=== PATIENT | male | born 1960 | race Caucasian/White ===

== ENCOUNTER 2019-02-14 12:14 | Emergency (ER) | payer MEDICAID, OTHER ==
[2019-02-14 12:44] VITALS: O2SAT 96
--- NOTE | 2019-02-14 13:22 | ERPHSYRPT ---
- History of Present Illness Time Seen by Provider: 02/14/19 12:45 Source: patient Exam Limitations: clinical condition Patient Subjective Stated Complaint: "My back has been hurting for past 2 months and have been having problems urinating also for past couple months. I did not hurt my back that I know of". Triage Nursing Assessment: Aaox3, walked in bent over in pain, color good, afebrile, no resp distress, states h/o copd, states sob with exertion and cough is normal for patient, Has no other complaints at this time. Physician History: PATIENT WITH A HISTORY OF CHRONIC LOW BACK FOR 20 YEARS PROGRESSIVELY WORSE FOR PAST 2 MONTHS. ADMITS TO HAVING A HISTORY OF LUMBAR HERNIATED DISC. HAS RADIATION OF PAIN DOWN THE BACK OF BOTH LEGS. HAS ASSOCIATED FLANK PAIN. DENIES FEVER OR URINARY SYMPTOMS. DENIES RECENT HISTORY OF TRAUMA, INJURY OR HEAVY LIFTING. Timing/Duration: week(s) Method of Injury: other (NONE) Quality: throbbing Back Pain Location: lumbar spine Back Pain Radiation: upper legs Severity of Pain-Max: severe Severity of Pain-Current: severe Modifying Factors: Improves With: movement Associated Symptoms: muscle spasms Previous symptoms: same symptoms as today Allergies/Adverse Reactions: No Known Drug Allergies Allergy (Unverified 12/01/12 16:11) Home Medications: Ibuprofen 200 mg [Motrin 200 mg] 600 02/14/19 [History] Hx Tetanus, Diphtheria Vaccination/Date Given: No Hx Influenza Vaccination/Date Given: No Hx Pneumococcal Vaccination/Date Given: No Immunizations Up to Date: No - Review of Systems Constitutional: No Fever, No Chills Eyes: No Symptoms Ears, Nose, & Throat: No Symptoms Respiratory: No Symptoms, No Cough, No Dyspnea Cardiac: No Symptoms, No Chest Pain, No Edema, No Syncope Abdominal/Gastrointestinal: No Symptoms, No Abdominal Pain, No Nausea, No Vomiting, No Diarrhea Genitourinary Symptoms: No Symptoms, No Dysuria Musculoskeletal: No Back Pain, No Neck Pain Skin: No Rash Neurological: No Symptoms, No Dizziness, No Focal Weakness, No Sensory Changes Psychological: No Symptoms Endocrine: No Symptoms All Other Systems: Reviewed and Negative - Past Medical History Pertinent Past Medical History: Yes Neurological History: No Pertinent History ENT History: No Pertinent History Cardiac History: No Pertinent History Respiratory History: COPD Endocrine Medical History: No Pertinent History Musculoskeletal History: Fractures GI Medical History: No Pertinent History History: No Pertinent History Psycho-Social History: No Pertinent History Male Reproductive Disorders: No Pertinent History - Past Surgical History Past Surgical History: Yes Musculoskeletal: Orthopedic Surgery Other Surgical History: right shoulder surgeries. - Social History Smoking Status: Current every day smoker How long have you smoked: 45 years Exposure to second hand smoke: Yes Alcohol Use: Socially Drug Use: marijuana Patient Lives Alone: No Significant Family History: no pertinent family hx - Nursing Vital Signs Nursing Vital Signs: Initial Vital Signs Temperature 98 F 02/14/19 12:31 Pulse Rate 92 H 02/14/19 12:31 Respiratory Rate 20 02/14/19 12:31 Blood Pressure 158/96 02/14/19 12:31 O2 Sat by Pulse Oximetry 96 02/14/19 12:31 Pain Scale Pain Intensity 6 - Physical Exam General Appearance: mild distress, alert Eye Exam: PERRL/EOMI, eyes nml inspection Neck Exam: normal inspection, non-tender, supple, full range of motion, No meningismus, No midline tenderness Respiratory Exam: normal breath sounds, lungs clear, No respiratory distress Cardiovascular Exam: regular rate/rhythm, normal heart sounds Gastrointestinal Exam: soft, normal bowel sounds (NONTENDER) Back Exam: normal inspection, CVA tenderness (BILATERAL CVA TENDERNESS), decreased range of motion, muscle spasm, point tenderness (LUMBAR PARASPINAL TENDERNESS L1-L5) Peripheral Pulses: carotid (R): 2+, carotid (L): 2+, femoral (R): 2+, femoral (L ): 2+, dorsalis-pedis (R): 2+, dorsalis-pedis (L): 2+ Neurologic Exam: alert, oriented x 3, cooperative, derrick hand II-XII nml as tested Skin Exam: normal color Lymphatic Exam: adenopathy SpO2 Interpretation: normal SpO2: 96 O2 Delivery: Room Air - CT Exams Lumbar Spine CT Interpretation: Discussed w/radiologist (THERE IS A 3.8CM LEFT RENAL CYST LOWER POLE, LUMBAR DEGENERATIVE DISC BULGE MID TO LOWER LUMBAR GREATEST AT THE L4-L5 LEVEL REMAINING EXAM IS NEGATIVE) Ordered Tests: Active Orders 24 hr Category Date Time Status Clean Catch Urine Specimen STAT Care 02/14/19 13:18 Active IV Insertion STAT Care 02/14/19 13:18 Active ABDOMEN AND PELVIS W/0 CONTRAS [CT] Stat Exams 02/14/19 13:19 Completed RECONSTRUCTION [CT] Stat Exams 02/14/19 13:21 Taken BMP Stat Lab 02/14/19 14:00 Completed CBC W DIFF Stat Lab 02/14/19 14:00 Completed UA W/RFX UR CULTURE Stat Lab 02/14/19 14:45 Completed Urine Triage Profile Stat Lab 02/14/19 14:45 Ordered Medication Summary Discontinued Medications Generic Name Dose Route Start Last Admin Trade Name Brett PRN Reason Stop Dose Admin Hydromorphone HCl 1 mg 02/14/19 13:18 02/14/19 13:48 Hydromorphone 1 Mg/Ml Ampule IV 02/14/19 13:19 1 mg STAT ONE Administration Hydromorphone HCl Confirm 02/14/19 13:32 Hydromorphone 1 Mg/Ml Ampule Administered 02/14/19 13:33 Dose 1 mg .ROUTE .STK-MED ONE Sodium Chloride 1,000 mls @ 999 mls/hr 02/14/19 13:18 02/14/19 14:54 Sodium Chloride 0.9% 1000 Ml IV 02/14/19 14:18 Infused .Q1H1M STA Infusion Sodium Chloride Confirm 02/14/19 13:32 Sodium Chloride 0.9% 1000 Ml Administered 02/14/19 13:33 Dose 1,000 mls @ ud .ROUTE .STK-MED ONE Ketorolac Tromethamine 30 mg 02/14/19 13:18 02/14/19 13:47 Toradol 30 Mg Injection IV 02/14/19 13:19 30 mg STAT ONE Administration Ketorolac Tromethamine Confirm 02/14/19 13:32 Toradol 30 Mg Injection Administered 02/14/19 13:33 Dose 30 mg .ROUTE .STK-MED ONE Ondansetron HCl 4 mg 02/14/19 13:18 02/14/19 13:47 Zofran 4 Mg/2 Ml Vial IV 02/14/19 13:19 4 mg STAT ONE Administration Ondansetron HCl Confirm 02/14/19 13:32 Zofran 4 Mg/2 Ml Vial Administered 02/14/19 13:33 Dose 4 mg .ROUTE .STK-MED ONE Lab/Rad Data: Laboratory Result Diagrams 02/14/19 14:00 02/14/19 14:00 Laboratory Results 02/14/19 02/14/19 02/14/19 Range/Units 14:45 14:00 14:00 WBC 7.7 (4.0-10.5) K/mm3 RBC 5.54 (4.1-5.6) M/mm3 Hgb 16.3 (12.5-18.0) gm/dl Hct 48.2 (42-50) % MCV 87.0 (78-100) fl MCH 29.4 (26-32) pg MCHC 33.8 (32-36) g/dl RDW 13.7 (11.5-14.0) % Plt Count 360 (150-450) K/mm3 MPV 8.9 (6-9.5) fl Gran % 49.5 (36.0-66.0) % Eos # (Auto) 0.31 (0-0.5) Absolute Lymphs (auto) 2.94 (1.0-4.6) Absolute Monos (auto) 0.58 (0.0-1.3) Lymphocytes % 38.4 (24.0-44.0) % Monocytes % 7.6 (0.0-12.0) % Eosinophils % 4.0 (0.00-5.0) % Basophils % 0.5 (0.0-0.4) % Absolute Granulocytes 3.79 (1.4-6.9) Basophils # 0.04 (0-0.4) Sodium 141 (137-145) mmol/L Potassium 4.1 (3.5-5.1) mmol/L Chloride 105 (98-107) mmol/L Carbon Dioxide 24 (22-30) mmol/L Anion Gap 16.1 H (5-15) MEQ/L BUN 14 (9-20) mg/dL Creatinine 0.85 (0.66-1.25) mg/dL Estimated GFR > 60.0 ML/MIN Glucose 90 (74-106) mg/dL Calcium 9.7 (8.4-10.2) mg/dL Urine Color JUANA (YELLOW) Urine Appearance SLIGHTLY CLOUDY (CLEAR) Urine pH 5.0 (5-6) Ur Specific Franklin 1.023 (1.005-1.025) Urine Protein NEGATIVE (Negative) Urine Ketones TRACE (NEGATIVE) Urine Blood SMALL (0-5) Adilson/ul Urine Nitrite NEGATIVE (NEGATIVE) Urine Bilirubin NEGATIVE (NEGATIVE) Urine Urobilinogen 2 (0-1) mg/dL Ur Leukocyte Esterase NEGATIVE (NEGATIVE) Urine WBC (Auto) NONE (0-5) /HPF Urine RBC (Auto) 0-2 (0-2) /HPF U Hyaline Cast (Auto) 0-2 (0-2) /LPF U Epithel Cells (Auto) RARE (FEW) /HPF Urine Bacteria (Auto) NONE (NEGATIVE) /HPF Urine Mucus (Auto) SLIGHT (NEGATIVE) /HPF Urine Culture Reflexed NO (NO) Urine Glucose NEGATIVE (NEGATIVE) mg/dL - Progress Progress Note: 02/14/19 14:39 IV NORMAL SALINE 500ML/HR, ZOFRAN 4MG, TORADOL 30MG, DILAUDID 1MG IV - Departure Departure Disposition: Home Clinical Impression: CHRONIC LUMBAR PAIN, LEFT RENAL CYST Condition: Stable Critical Care Time: No Referrals: BARRINGTON LOZA [Emergency Provider] - Additional Instructions: OBTAIN A PRIMARY CARE PROVIDER FOR EVALUATION, TREATMENT, INCLUDING PHYSICAL THERAPY. TORADOL 10MG EVERY 6 HOURS FOR PAIN NEEDED. NORFLEX 100MG TWICE DAILY FOR MUSCLE SPASM. PREDNISONE 20MG, 2 TABLETS DAILY FOR 4 DAYS FOR TREATMENT OF INFLAMMATION. CONSULT UROLOGIST DR GROSS FOR EVALUATION OF KIDNEY CYST AND DIFFICULTY URINATING. Prescriptions: Ketorolac Tromethamine [Toradol] 10 mg PO Q6H PRN PRN #20 tablet PRN Reason: Pain Orphenadrine Citrate 100 mg [Norflex 100 MG Tablet] 100 mg PO BID #10 tab Prednisone 20 mg [Deltasone 20 mg] 2 tab PO DAILY #10 tablet
[2019-02-14] MEDS ORDERED: Hydromorphone 1 mg/ml Ampule ONE (13:32)
[2019-02-14] MEDS ORDERED: TORAdol 30 mg Injection ONE (13:32)
[2019-02-14] MEDS ORDERED: Zofran 4 MG/2 ML VIAL ONE (13:32)
[2019-02-14] MEDS ORDERED: Sodium Chloride 0.9% 1000 ML 1,000 ML ONE (13:32)
[2019-02-14] MEDS: TORAdol 30 mg Injection IV ONE (13:47)
[2019-02-14] MEDS: Zofran 4 MG/2 ML VIAL IV ONE (13:47)
[2019-02-14] MEDS: Hydromorphone 1 mg/ml Ampule IV ONE (13:48)
[2019-02-14] MEDS: Sodium Chloride 0.9% 1000 ML 1,000 ML IV STA (13:50)
[2019-02-14 14:03] VITALS: BP 149/102; PULSE 77
[2019-02-14 14:07] LABS: BASOPHIL % 0.5 % (0.0-0.4); Basophil (Absolute #) 0.04 (0-0.4); Eosinophil (Absolute #) 0.31 (0-0.5); Granulocyte Absolute (ANC) 3.79 (1.4-6.9); Granulocytes % 49.5 % (36.0-66.0); Hematocrit 48.2 % (42-50); Hemoglobin 16.3 gm/dl (12.5-18.0); Lymphocyte (Absolute #) 2.94 (1.0-4.6); Lymphocytes % 38.4 % (24.0-44.0); Mean Corpuscular Hemoglobin 29.4 pg (26-32); Mean Corpuscular Hgb Concent. 33.8 g/dl (32-36); Mean Platelet Volume 8.9 fl (6-9.5); Monocyte (Absolute #) 0.58 (0.0-1.3); Monocytes % 7.6 % (0.0-12.0); Platelet Count 360 K/mm3 (150-450); Red Blood Count 5.54 M/mm3 (4.1-5.6); Red Cell Distribution Width 13.7 % (11.5-14.0); White Blood Count 7.7 K/mm3 (4.0-10.5)
--- NOTE | 2019-02-14 14:27 | XRAY ---
Indication: Bilateral flank pain 3 weeks. Multiple contiguous axial images obtained through the abdomen and pelvis without contrast as ordered. Comparison: None Lung bases demonstrates left base calcified granuloma. No infiltrate or effusion. Heart is not enlarged. Noncontrasted stomach and bowel loops appear nonobstructed. Normal appendix. Minimal sigmoid diverticulosis without diverticulitis. No free fluid/air. 3.8 cm left lower pole renal cyst. Calcified splenic granulomas. Remaining liver, gallbladder, pancreas, spleen, adrenal glands, kidneys, ureters, and bladder appear unremarkable for noncontrast exam. Mild aortoiliac calcifications without AAA. Osseous structures intact with mild degenerative disc disease throughout the thoracolumbar spine and broad-based disc bulge involving the mid to lower lumbar spine, greatest at the L4-L5 level. No ventral or inguinal hernias. Impression: 1. Minimal sigmoid diverticulosis, left renal cyst, and evidence for old granulomatous disease. 2. Lower lumbar degenerative disc bulge better evaluated with outpatient MRI. 3. Remaining CT abdomen/pelvis without contrast exam is negative. CT DI 18.16
[2019-02-14 14:28] LABS: ANION GAP 16.1 MEQ/L (5-15); BLOOD UREA NITROGEN 14 mg/dL (9-20); CHLORIDE 105 mmol/L (98-107); Calcium 9.7 mg/dL (8.4-10.2); Carbon Dioxide 24 mmol/L (22-30); Creatinine 1 0.85 mg/dL (0.66-1.25); Glucose 90 mg/dL (74-106); Potassium 4.1 mmol/L (3.5-5.1); SODIUM 141 mmol/L (137-145)
[2019-02-14 14:58] LABS: Appearance SLIGHTLY CLOUDY (CLEAR); Bilirubin NEGATIVE (NEGATIVE); Blood SMALL Ery/ul (0-5); Epithelial Cells RARE /HPF (FEW); Glucose NEGATIVE (NEGATIVE); Hyaline Casts 0-2 /LPF (0-2); Ketones TRACE (NEGATIVE); Leukocyte Esterase NEGATIVE (NEGATIVE); Mucus SLIGHT /HPF (NEGATIVE); Nitrite NEGATIVE (NEGATIVE); Protein,Urine Dip NEGATIVE (Negative); RBC 0-2 /HPF (0-2); Specific Gravity 1.023 (1.005-1.025); Urobilinogen 2 mg/dL (0-1)
[2019-02-14 15:09] LABS: Barbiturate,Urine NEGATIVE (NEGATIVE); Benzodiazepine,Urine NEGATIVE (NEGATIVE); Cocaine,Urine NEGATIVE (NEGATIVE); Methadone,Urine NEGATIVE (NEGATIVE); Opiate,Urine NEGATIVE (NEGATIVE); PCP,Urine NEGATIVE (NEGATIVE); THC,Urine POSITIVE (NEGATIVE)
[2019-02-14 15:38] LABS: Amphetamine,Urine POSITIVE (NEGATIVE)
--- NOTE | 2019-02-18 11:07 | XRAY ---
Indication: Low back pain 3 weeks. Axial, sagittal, and coronal reformatted images of the lumbar spine obtained using the raw data from same day CT abdomen/pelvis exam. Comparison: None Axial images at the T12-L4 levels demonstrates minimal annular disc osteophyte complex. Also T12-L1 and L2-L3 degenerative vacuum disc phenomena with tiny epidural air posterior to L2-L3 level. At the L4-L5 level, there is mild/moderate annular disc bulge effacing the thecal sac and producing bilateral foraminal narrowing. At the L5-S1 level, there is minimal broad-based disc bulge. Facets are symmetric with mild L5-S1 degenerative facet arthropathy. Sagittal and coronal reformatted images demonstrates normal alignment with multilevel disc space narrowing. No acute compression fracture or subluxation. CT abdomen/pelvis reported separately. Impression: 1. Multilevel degenerative disc disease greatest at the L4-L5 level. Outpatient MRI may yield further information. 2. Remaining CT lumbar spine is negative.
== END 2019-02-14 15:21 | disposition home or self-care (01) ==
LOC: ED 12:14
DX: M54.5 Low back pain (principal); G89.29 Other chronic pain; N28.1 Cyst of kidney, acquired; J44.9 Chronic obstructive pulmonary disease, unspecified
CPT/HCPCS: 36000; 36415; 74176; 76376; 80048; 80307; 81001; 85025; 96360; 96374; 96375; 99284; J1170; J1885; J2405

== ENCOUNTER 2019-03-04 05:52 | Day surgery (SDC) | payer MEDICAID ==
[2019-03-04] MEDS ORDERED: DIPRIVAN 200 MG/20 ML IV ONE (05:53)
[2019-03-04] MEDS ORDERED: Ketamine HCl 50 MG/ML IV ONE (05:53)
[2019-03-04] MEDS ORDERED: Lactated Ringers 1,000 ML IV ONE (06:18)
[2019-03-04] MEDS ORDERED: Lactated Ringers 1,000 ML IV SCH (07:00)
[2019-03-04 08:38] VITALS: O2SAT 97
[2019-03-04 09:02] VITALS: BP 148/98; PULSE 86
--- NOTE | 2019-03-04 11:40 | OP ---
SURGERY DATE/TIME: 03/04/2019 0750 PREOPERATIVE DIAGNOSIS: Screening exam. POSTOPERATIVE DIAGNOSIS: Mild sigmoid diverticulosis otherwise normal colon. PROCEDURE: Colonoscopy. SURGEON: Dr. Light. ANESTHESIA: MAC. Medications given by anesthesia department. HISTORY: The patient is a 58 year-old white male presenting now for his first screening colonoscopy. He was appraised of the risks of the procedure including the risk of perforation, phlebitis, untoward reaction to medication, bleeding and missed lesions. The patient verbalized his understanding and desired to have the procedure performed. DESCRIPTION OF PROCEDURE: The patient was given the medications by the anesthesia department. He had continuous pulse oximetry, ECG monitoring, intermittent blood pressure monitoring and tidal CO2 monitoring during the examination. He was placed in the left lateral decubitus position. A digital rectal examination was performed and revealed normal anal sphincter tone and no masses and normal prostate. The flexible Olympus pediatric colonoscope was used to intubate the rectum. A view of the colon was developed sequentially to the cecum. Upon insertion and withdrawal it was noted mild early sigmoid diverticulosis otherwise no mucosal lesions were encountered. The scope was removed from the patient who tolerated the procedure well and sent back to OP recovery in good condition. The prep was noted to be fair to good.
== END 2019-03-04 09:07 | disposition home or self-care (01) ==
LOC: SDC 05:52
PROVIDERS: ATTEND Family Medicine
DX: Z12.11 Encounter for screening for malignant neoplasm of colon (principal); K57.30 Diverticulosis of large intestine without perforation or abscess without bleeding
CPT/HCPCS: J2704

== ENCOUNTER 2019-05-04 15:37 | Emergency (ER) | payer MEDICAID ==
[2019-05-04] MEDS ORDERED: Hydromorphone 1 mg/ml Ampule IV ONE ×2 (16:05→17:26)
[2019-05-04] MEDS ORDERED: Zofran 4 MG/2 ML VIAL IV ONE (16:05)
--- NOTE | 2019-05-04 16:09 | ERPHSYRPT ---
- History of Present Illness Time Seen by Provider: 05/04/19 16:01 Source: patient Exam Limitations: no limitations Patient Subjective Stated Complaint: pt states he had back surgery on to repair and ruptured disk, today he states at a cook out sitting in a lawn chair and when he went to get up he started having shooting pain down right leg, he states he is unable to apply weight to leg Triage Nursing Assessment: pt alert, arrived per wc, resp easy, skin w/d/p. pt has strong pulses to right leg, nail beds pink , has small amt of serous drainage to dressing, Physician History: 58-year-old white male status post back surgery 2 days ago arrives with complaint of pain in his right lumbar region radiating down his right leg. Symptoms since just prior to arrival. Patient states he was sitting in a lawn chair and had the severe pain when he went to get up. Past medical history includes COPD, chronic low back pain, degenerative disc disease Past surgical history includes orthopedic surgery, right shoulder surgery Social history positive tobacco use Timing/Duration: today Severity: moderate Modifying Factors: Improves With: other (rrecent back surgery) Associated Symptoms: No nausea, No vomiting, No abdominal pain, No shortness of breath, No heartburn, No diaphoresis, No cough, No chills, No chest pain, No fever, No headaches, No loss of appetite, No malaise, No rash, No syncope, No seizure, No weakness Allergies/Adverse Reactions: No Known Drug Allergies Allergy (Verified 05/04/19 15:50) Home Medications: Naproxen 500 mg [Naprosyn 500 MG] 500 mg PO BID 03/04/19 [History] Diclofenac Sodium 75 mg DAILY 05/04/19 [History] Gabapentin 300 mg TID 05/04/19 [History] Hydrocodone/Acetaminophen [Hydrocodone-Acetamin 10-325 mg] 1 ea QID 05/04/19 [ History] [id number]/Sod Sulf,Bicarb,Cl/KCl [Gavilyte-G Solution] 1 ea DAILY 05/04/19 [ History] Hx Tetanus, Diphtheria Vaccination/Date Given: No Hx Influenza Vaccination/Date Given: No Hx Pneumococcal Vaccination/Date Given: No Immunizations Up to Date: Yes - Review of Systems Constitutional: No Fever, No Chills Eyes: No Symptoms Ears, Nose, & Throat: No Symptoms Respiratory: No Cough, No Dyspnea Cardiac: No Chest Pain, No Edema, No Syncope Abdominal/Gastrointestinal: No Abdominal Pain, No Nausea, No Vomiting, No Diarrhea Genitourinary Symptoms: No Dysuria Musculoskeletal: Back Pain (right low back pain radiating to right leg), Other ( recent surgery back) Skin: No Rash Neurological: No Dizziness, No Focal Weakness, No Sensory Changes Psychological: No Symptoms Endocrine: No Symptoms All Other Systems: Reviewed and Negative - Past Medical History Pertinent Past Medical History: Yes Neurological History: No Pertinent History ENT History: No Pertinent History Cardiac History: No Pertinent History Respiratory History: COPD Endocrine Medical History: No Pertinent History Musculoskeletal History: Osteoarthritis GI Medical History: No Pertinent History History: No Pertinent History Psycho-Social History: No Pertinent History Male Reproductive Disorders: No Pertinent History Other Medical History: Carpal tunnel surgery on the R hand. 4 surgeries on R shoulder, section of R clavical removed. - Past Surgical History Past Surgical History: Yes Neuro Surgical History: No Pertinent History Cardiac: No Pertinent History Respiratory: No Pertinent History Gastrointestinal: No Pertinent History Genitourinary: No Pertinent History Musculoskeletal: Orthopedic Surgery Male Surgical History: No Pertinent History Other Surgical History: right shoulder surgeries. ,carpal tunnel right wrist, section of right clavicle removed r/t being at age 29, surgery to back 04/2019 - Social History Smoking Status: Current every day smoker How long have you smoked: 45 years Exposure to second hand smoke: Yes Alcohol Use: Socially Drug Use: marijuana Patient Lives Alone: No Significant Family History: no pertinent family hx - Nursing Vital Signs Nursing Vital Signs: Initial Vital Signs Pulse Rate 100 H 05/04/19 15:39 Respiratory Rate 20 05/04/19 15:39 Blood Pressure 155/91 05/04/19 15:39 O2 Sat by Pulse Oximetry 98 05/04/19 15:39 Pain Scale Pain Intensity 8 - Physical Exam General Appearance: moderate distress, alert Eye Exam: PERRL/EOMI, eyes nml inspection Ears, Nose, Throat Exam: normal ENT inspection, TMs normal, pharynx normal, moist mucous membranes Neck Exam: normal inspection, non-tender, supple, full range of motion Respiratory Exam: normal breath sounds, lungs clear, No respiratory distress Cardiovascular Exam: regular rate/rhythm, normal heart sounds, normal peripheral pulses, capillary refill <2 sec Gastrointestinal/Abdomen Exam: soft, normal bowel sounds, No tenderness, No mass Back Exam: other (tender right lumbar region, dressing in place lumbar area midline) Extremity Exam: normal inspection, normal range of motion, pelvis stable Neurologic Exam: alert, oriented x 3, cooperative, 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 No acute intra-abdominal findings. 2. Postsurgical changes along the posterior midline back soft tissues.) Ordered Tests: Active Orders 24 hr Category Date Time Status IV Insertion STAT Care 05/04/19 16:05 Active ABDOMEN AND PELVIS W/0 CONTRAS [CT] Stat Exams 05/04/19 16:05 Taken Medication Summary Discontinued Medications Generic Name Dose Route Start Last Admin Trade Name Freq PRN Reason Stop Dose Admin Hydromorphone HCl 1 mg 05/04/19 16:05 05/04/19 16:38 Hydromorphone 1 Mg/Ml Ampule IV 05/04/19 16:06 1 mg STAT ONE Administration Hydromorphone HCl Confirm 05/04/19 16:27 Hydromorphone 1 Mg/Ml Ampule Administered 05/04/19 16:28 Dose 1 mg .ROUTE .STK-MED ONE Hydromorphone HCl 1 mg 05/04/19 17:26 05/04/19 17:34 Hydromorphone 1 Mg/Ml Ampule IV 05/04/19 17:27 1 mg STAT ONE Administration Hydromorphone HCl Confirm 05/04/19 17:33 Hydromorphone 1 Mg/Ml Ampule Administered 05/04/19 17:34 Dose 1 mg .ROUTE .STK-MED ONE Ondansetron HCl 4 mg 05/04/19 16:05 05/04/19 16:38 Zofran 4 Mg/2 Ml Vial IV 05/04/19 16:06 4 mg STAT ONE Administration Ondansetron HCl Confirm 05/04/19 16:27 Zofran 4 Mg/2 Ml Vial Administered 05/04/19 16:28 Dose 4 mg .ROUTE .STK-MED ONE - Progress Progress: improved Progress Note: 05/04/19 18:39 the patient is feeling better after 1 mg hydromorphone x 2 . the patient is offered crutches he doesn't want any. will release. - Departure Departure Disposition: Home Clinical Impression: s/p recent back surgery Back pain Qualifiers: Back pain location: low back pain Chronicity: acute Back pain laterality: right Sciatica presence: with sciatica Sciatica laterality: sciatica of right side Qualified Code(s): M54.41 - Lumbago with sciatica, right side Condition: Fair Critical Care Time: No Referrals: VAISHALI CHAMBERS [Primary Care Provider] - Additional Instructions: Return home. pain medications as prescribed by your back specialist. follow up with your back specialist. Return for acute distress or for any problems.
[2019-05-04] MEDS ORDERED: Zofran 4 MG/2 ML VIAL ONE (16:27)
[2019-05-04] MEDS ORDERED: Hydromorphone 1 mg/ml Ampule ONE ×2 (16:27→17:33)
[2019-05-04 17:11] VITALS: BP 127/78; PULSE 85
[2019-05-04 17:20] VITALS: O2SAT 98
--- NOTE | 2019-05-04 20:49 | XRAY ---
Indication: Abdomen and low back pain. Multiple contiguous axial images obtained through the abdomen and pelvis without contrast as ordered. Comparison: February 14, 2019. Lung bases remain clear again with left lower lobe calcified granuloma. Heart is not enlarged. Noncontrasted stomach and bowel loops appear nonobstructed. Normal appendix. There is now mild diffuse scattered colonic fecal debris throughout. No free fluid/air. Stable left renal cyst and splenic calcified granulomas. Gallbladder contracted without gallstones. Remaining liver, pancreas, adrenal glands, right kidney, ureters, and bladder appear unremarkable for noncontrast exam. Again mild aortoiliac calcifications without AAA. Osseous structures intact again with mild degenerative changes throughout the spine. New lower lumbar cutaneous mandeep with minimal subcutaneous edema/fluid presumed postoperative. Impression: 1. New fecal stasis without obstruction. 2. Lower back postsurgical changes. 3. Stable left renal cyst and evidence for old granulomatous disease. 4. Remaining CT abdomen/pelvis without contrast exam is negative. Comment: Preliminary interpretation was made by [facility]. Fecal stasis is not reported. CTDI 20.61
== END 2019-05-04 19:00 | disposition home or self-care (01) ==
LOC: ED 15:37
DX: M54.41 Lumbago with sciatica, right side (principal); Z98.890 Other specified postprocedural states; J44.9 Chronic obstructive pulmonary disease, unspecified
CPT/HCPCS: 36000; 74176; 96374; 96375; 96376; 99284; J1170; J2405

== ENCOUNTER 2019-10-21 02:25 | Emergency (ER) | payer OTHER ==
[2019-10-21] MEDS ORDERED: BABY ASPIRIN 81 MG CHEW PO ONE (02:53)
[2019-10-21] MEDS ORDERED: Zofran 4 MG/2 ML VIAL IV ONE (02:53)
[2019-10-21] MEDS ORDERED: Nitrostat 0.4 MG (ED) SL ONE ×4 (02:53→07:03)
[2019-10-21] MEDS ORDERED: Zofran 4 MG/2 ML VIAL ONE (02:59)
[2019-10-21 03:11] LABS: Absolute Neutrophil Ct (ANC) 5.13 (1.4-6.9); BASOPHIL % 0.6 % (0.0-0.4); Basophil (Absolute #) 0.05 (0-0.4); Eosinophil % 6.5 % (0.00-5.0); Eosinophil (Absolute #) 0.56 (0-0.5); Hematocrit 45.6 % (42-50); Hemoglobin 15.4 gm/dl (12.5-18.0); Lymphocyte (Absolute #) 2.33 (1.0-4.6); Lymphocytes % 27.1 % (24.0-44.0); Mean Cell Volume 89.4 fl (78-100); Mean Corpuscular Hemoglobin 30.2 pg (26-32); Mean Corpuscular Hgb Concent. 33.8 g/dl (32-36); Mean Platelet Volume 8.9 fl (6-9.5); Monocyte (Absolute #) 0.53 (0.0-1.3); Monocytes % 6.2 % (0.0-12.0); Neutrophil % 59.6 % (36.0-66.0); Platelet Count 335 K/mm3 (150-450); Red Cell Distribution Width 13.4 % (11.5-14.0); White Blood Count 8.6 K/mm3 (4.0-10.5)
[2019-10-21 03:16] LABS: ALBUMIN 4.4 g/dL (3.5-5.0); ALKALINE PHOSPHATASE 65 U/L (38-126); BLOOD UREA NITROGEN 23 mg/dL (9-20); CHLORIDE 103 mmol/L (98-107); CK-Creatinine Phosphokinase 56 U/L (55-170); Calcium 9.9 mg/dL (8.4-10.2); Carbon Dioxide 27 mmol/L (22-30); Creatinine 1 0.97 mg/dL (0.66-1.25); Glucose 102 mg/dL (74-106); Potassium 4.4 mmol/L (3.5-5.1); SGOT/AST 25 U/L (17-59); SGPT/ALT 26 U/L (0-50); SODIUM 140 mmol/L (137-145); Total Protein 7.9 g/dL (6.3-8.2)
[2019-10-21] MEDS ORDERED: GI COCKTAIL 45 ML (Maalox/Lidocaine) PO ONE (04:24)
[2019-10-21] MEDS ORDERED: MAALOX ES 30 ML UNIT DOSE ONE (04:46)
[2019-10-21] MEDS ORDERED: DUONEB 0.5-3 MG/3 ml Neb IH ONE ×2 (04:46→05:02)
[2019-10-21] MEDS ORDERED: XYLOCAINE HCl Viscous ONE (04:48)
--- NOTE | 2019-10-21 04:55 | ERPHSYRPT ---
- History of Present Illness Time Seen by Provider: 10/21/19 02:35 Historian: patient, family Exam Limitations: clinical condition Patient Subjective Stated Complaint: pt states, "I was watching the news when this belly pain hit me....it was like someone kicked me in the stomach". Triage Nursing Assessment: pt alert and oriented x3, cooperative. Pt c/o upper abd pain right at the diaphragm radiating to the umbilicus. Pt has active bs x4 quad, tender on rt side with palpation. LBM 2 days ago. Lungs clear, heart tones reg. Physician History: pT IS HERE WITH C/C OF CHEST PAIN JUST BELOW THE STERNUM AND PAIN RADIATING INTO THE MIDEPIGASTRIC REGION AND DOWN. Pt notes that the pain goes favian into his RLQ of his abdomen. When the pain hit the pt he had a bit of a heart flutter and then vomited a few times. Pt notes that he felt light headed and nauseated. Pt also got a bit sweaty or clammy. Pt notes that he felt like some sharp pain had started suddenly while he was watching TV/at rest. Timing/Duration: today, worse Activities at Onset: rest Quality: sharpness, stabbing Location: substernal, epigastric Chest Pain Radiation: abdomen Severity of Pain-Max: severe Severity of Pain-Current: severe Modifying Factors: Improves With: nothing. Worsens With: antacids, movement Associated Symptoms: nausea, vomiting, palpitations, abdominal pain, shortness of breath, diaphoresis (mildly), No cough, No hurts to breathe Prior Chest Pain/Cardiac Workup: no prior cardiac workup Nitro Today/Relief: no nitro taken today Aspirin Treatment Today: no aspirin today Allergies/Adverse Reactions: No Known Drug Allergies Allergy (Verified 05/04/19 15:50) Home Medications: Diclofenac Sodium 75 mg PO BID 05/04/19 [History] Gabapentin 300 mg PO TID 05/04/19 [History] Albuterol 8 gm Mdi Hfa [Ventolin Hfa MDI] 8 gm IH Q4HPRN PRN 10/21/19 [ History] Lisinopril 10 mg [Zestril 10 MG] 10 mg PO DAILY 10/21/19 [History] Tamsulosin HCl 0.4 mg [Flomax 0.4 MG] 0.4 mg PO DAILY 10/21/19 [History] Hx Tetanus, Diphtheria Vaccination/Date Given: Yes Hx Influenza Vaccination/Date Given: No Hx Pneumococcal Vaccination/Date Given: No Immunizations Up to Date: Yes - Review of Systems Constitutional: No Symptoms Eyes: No Symptoms Ears, Nose, & Throat: No Symptoms Respiratory: Dyspnea Cardiac: Chest Pain, Palpitations (few flutters at the beginning but not persistent) Abdominal/Gastrointestinal: Abdominal Pain, Nausea, Vomiting, No Diarrhea, No Constipation Genitourinary Symptoms: No Symptoms, No Dysuria, No Frequency, No Hematuria Musculoskeletal: Back Pain Skin: No Symptoms Neurological: Dizziness, No Irritability Psychological: Anxiety Endocrine: No Symptoms Hematologic/Lymphatic: No Anemia, No Adenopathy All Other Systems: Reviewed and Negative - Past Medical History Pertinent Past Medical History: Yes Neurological History: No Pertinent History ENT History: No Pertinent History Cardiac History: Hypertension Respiratory History: COPD Endocrine Medical History: No Pertinent History Musculoskeletal History: Osteoarthritis GI Medical History: No Pertinent History History: No Pertinent History Psycho-Social History: No Pertinent History Male Reproductive Disorders: No Pertinent History Other Medical History: Carpal tunnel surgery on the R hand. 4 surgeries on R shoulder, section of R clavical removed. - Past Surgical History Past Surgical History: Yes Neuro Surgical History: No Pertinent History Cardiac: No Pertinent History Respiratory: No Pertinent History Gastrointestinal: No Pertinent History Genitourinary: No Pertinent History Musculoskeletal: Orthopedic Surgery Male Surgical History: No Pertinent History Other Surgical History: right shoulder surgeries. ,carpal tunnel right wrist, section of right clavicle removed r/t being at age 29, surgery to back 04/2019 - Social History Smoking Status: Current every day smoker How long have you smoked: 40 yrs Exposure to second hand smoke: Yes Alcohol Use: Socially Drug Use: marijuana, methamphetamines Patient Lives Alone: No Significant Family History: no pertinent family hx - Nursing Vital Signs Nursing Vital Signs: Initial Vital Signs Temperature 97.4 F 10/21/19 02:28 Pulse Rate 89 10/21/19 02:28 Respiratory Rate 19 10/21/19 02:28 Blood Pressure 128/89 10/21/19 02:28 O2 Sat by Pulse Oximetry 99 10/21/19 02:28 Pain Scale Pain Intensity 4 - Physical Exam General Appearance: mild distress Eye Exam: PERRL/EOMI, eyes nml inspection Ears, Nose, Throat Exam: normal ENT inspection, No dry mucous membranes Neck Exam: normal inspection Respiratory Exam: normal breath sounds Cardiovascular Exam: regular rate/rhythm, normal heart sounds, No murmur, No friction rub, No gallop Gastrointestinal/Abdomen Exam: soft, normal bowel sounds, No tenderness, No distention Rectal Exam: not done Extremity Exam: normal inspection, normal range of motion, No calf tenderness, No tenderness Neurologic Exam: alert, oriented x 3, cooperative, mill helper II-XII nml as tested, normal mood/affect Skin Exam: normal color, warm, dry, No rash, No diaphoresis Lymphatic Exam: No adenopathy SpO2 Interpretation: normal SpO2: 100 O2 Delivery: Room Air Ordered Tests: Active Orders 24 hr Category Date Time Status EKG-ER Only STAT Care 10/21/19 02:53 Active ABDOMEN AND PELVIS W/0 CONTRAS [CT] Stat Exams 10/21/19 02:56 Taken CHEST 1 VIEW (PORTABLE) Stat Exams 10/21/19 02:54 Taken CBC W DIFF Stat Lab 10/21/19 03:07 Completed CK-Creatinine Phosphokinase Stat Lab 10/21/19 03:07 Completed CMP Stat Lab 10/21/19 03:07 Completed D-DIMER QUANTITATION Stat Lab 10/21/19 03:07 Completed TROPONIN Q3H Lab 10/21/19 03:07 Completed TROPONIN Q3H Lab 10/21/19 06:00 Completed TROPONIN Q3H Lab 10/21/19 09:00 Ordered TROPONIN Q3H Lab 10/21/19 12:00 Ordered TROPONIN Q3H Lab 10/21/19 15:00 Ordered Peak Expiratory Flow Rate ONCE RT 10/21/19 05:03 Active Respiratory Therapy Assessment DAILY RT 10/21/19 05:03 Active Medication Summary Discontinued Medications Generic Name Dose Route Start Last Admin Trade Name Freq PRN Reason Stop Dose Admin Al Hydrox/Mg Hydrox/Simethicone Confirm 10/21/19 04:46 Maalox Es 30 Ml Unit Dose Administered 10/21/19 04:47 Dose 30 ml .ROUTE .STK-MED ONE Albuterol/Ipratropium 3 ml 10/21/19 04:46 10/21/19 05:04 Duoneb 0.5-3 Mg/3 Ml Neb IH 10/21/19 04:47 3 ml STAT ONE Administration Albuterol/Ipratropium Confirm 10/21/19 05:02 Duoneb 0.5-3 Mg/3 Ml Neb Administered 10/21/19 05:03 Dose 3 ml IH .STK-MED ONE Aspirin 324 mg 10/21/19 02:53 10/21/19 03:00 Baby Aspirin 81 Mg Chew PO 10/21/19 02:54 324 mg STAT ONE Administration Lidocaine HCl Confirm 10/21/19 04:48 Xylocaine Hcl Viscous * Administered 10/21/19 04:49 Dose 15 ml .ROUTE .STK-MED ONE Magnesium Hydroxide 45 ml 10/21/19 04:24 10/21/19 04:48 Gi Cocktail 45 Ml (Maalox/Lidocaine) PO 10/21/19 04:25 45 ml STAT ONE Administration Nitroglycerin 0.4 mg 10/21/19 02:53 10/21/19 03:01 Nitrostat 0.4 Mg (Ed) SL 10/21/19 02:54 0.4 mg STAT ONE Administration Nitroglycerin 0.4 mg 10/21/19 03:25 10/21/19 03:27 Nitrostat 0.4 Mg (Ed) SL 10/21/19 03:26 0.4 mg STAT ONE Administration Ondansetron HCl 4 mg 10/21/19 02:53 10/21/19 03:00 Zofran 4 Mg/2 Ml Vial IV 10/21/19 02:54 4 mg STAT ONE Administration Ondansetron HCl Confirm 10/21/19 02:59 Zofran 4 Mg/2 Ml Vial Administered 10/21/19 03:00 Dose 4 mg .ROUTE .STK-MED ONE Lab/Rad Data: Laboratory Result Diagrams 10/21/19 03:07 10/21/19 03:07 Laboratory Results 10/21/19 10/21/19 10/21/19 Range/Units 06:00 03:07 03:07 WBC (4.0-10.5) K/mm3 RBC (4.1-5.6) M/mm3 Hgb (12.5-18.0) gm/dl Hct (42-50) % MCV (78-100) fl MCH (26-32) pg MCHC (32-36) g/dl RDW (11.5-14.0) % Plt Count (150-450) K/mm3 MPV (6-9.5) fl Gran % (36.0-66.0) % Eos # (Auto) (0-0.5) Absolute Lymphs (auto) (1.0-4.6) Absolute Monos (auto) (0.0-1.3) Lymphocytes % (24.0-44.0) % Monocytes % (0.0-12.0) % Eosinophils % (0.00-5.0) % Basophils % (0.0-0.4) % Absolute Granulocytes (1.4-6.9) Basophils # (0-0.4) D-Dimer 226 (215-500) ng/mL Sodium (137-145) mmol/L Potassium (3.5-5.1) mmol/L Chloride (98-107) mmol/L Carbon Dioxide (22-30) mmol/L Anion Gap (5-15) MEQ/L BUN (9-20) mg/dL Creatinine (0.66-1.25) mg/dL Estimated GFR ML/MIN Glucose (74-106) mg/dL Calcium (8.4-10.2) mg/dL Total Bilirubin (0.2-1.3) mg/dL AST (17-59) U/L ALT (0-50) U/L Alkaline Phosphatase (38-126) U/L Creatine Kinase (55-170) U/L Troponin I < 0.012 < 0.012 (0.000-0.034) ng/mL Serum Total Protein (6.3-8.2) g/dL Albumin (3.5-5.0) g/dL 10/21/19 10/21/19 Range/Units 03:07 03:07 WBC 8.6 (4.0-10.5) K/mm3 RBC 5.10 (4.1-5.6) M/mm3 Hgb 15.4 (12.5-18.0) gm/dl Hct 45.6 (42-50) % MCV 89.4 (78-100) fl MCH 30.2 (26-32) pg MCHC 33.8 (32-36) g/dl RDW 13.4 (11.5-14.0) % Plt Count 335 (150-450) K/mm3 MPV 8.9 (6-9.5) fl Gran % 59.6 (36.0-66.0) % Eos # (Auto) 0.56 H (0-0.5) Absolute Lymphs (auto) 2.33 (1.0-4.6) Absolute Monos (auto) 0.53 (0.0-1.3) Lymphocytes % 27.1 (24.0-44.0) % Monocytes % 6.2 (0.0-12.0) % Eosinophils % 6.5 H (0.00-5.0) % Basophils % 0.6 (0.0-0.4) % Absolute Granulocytes 5.13 (1.4-6.9) Basophils # 0.05 (0-0.4) D-Dimer (215-500) ng/mL Sodium 140 (137-145) mmol/L Potassium 4.4 (3.5-5.1) mmol/L Chloride 103 (98-107) mmol/L Carbon Dioxide 27 (22-30) mmol/L Anion Gap 14.0 (5-15) MEQ/L BUN 23 H (9-20) mg/dL Creatinine 0.97 (0.66-1.25) mg/dL Estimated GFR > 60.0 ML/MIN Glucose 102 (74-106) mg/dL Calcium 9.9 (8.4-10.2) mg/dL Total Bilirubin 0.40 (0.2-1.3) mg/dL AST 25 (17-59) U/L ALT 26 (0-50) U/L Alkaline Phosphatase 65 (38-126) U/L Creatine Kinase 56 (55-170) U/L Troponin I (0.000-0.034) ng/mL Serum Total Protein 7.9 (6.3-8.2) g/dL Albumin 4.4 (3.5-5.0) g/dL - Progress Progress: improved Air Movement: good Progress Note: 10/21/19 05:05 Pt's pain improved with Nitro and with a GI cocktail. Will Recheck a Troponin and EKG then release to home. Pt's pain went from 8/10 to 5/10 with the first nitro then lessened with the second nitro and went away with the GI cocktail. Discussed with .: Vlad (Pt feeling better and duoneb helped.) - Departure Departure Disposition: Home Clinical Impression: Chest pain, Chest pain due to GERD, COPD exacerbation Condition: Stable Critical Care Time: Yes Critical Care Time(excluding separately billable procedures): Critical 30-74 mins Referrals: VAISHALI CHAMBERS [Primary Care Provider] - Instructions: Chronic Obstructive Pulmonary Disease Additional Instructions: Take Asprin 325 mgs daily and follow up with your primary care physician who will need to get your set up with a [employer] for a stress test. You should stop smoking as it worsens the probability of having the [place], COPD, and cancers of all varieties. It would be good for you to have a Stress test. Follow up with your primary care doctor in the next 1-5 days . Use your albuterol inhaler 2 pouffs every 4-6 hours as needed for shortness of breath.
[2019-10-21 06:30] VITALS: BP 119/74; PULSE 93
[2019-10-21 06:49] VITALS: O2SAT 100
[2019-10-21] MEDS ORDERED: BABY ASPIRIN 81 MG CHEW ONE (07:02)
--- NOTE | 2019-10-21 09:20 | XRAY ---
Indication: Lower chest/abdomen pain 5 hours. Nausea and vomiting. Multiple contiguous axial images obtained through the abdomen and pelvis without contrast as ordered. Comparison: May 04, 2019. Lung bases demonstrates mild bilateral dependent atelectasis with stable left lower lobe calcified granuloma. No infiltrate or effusion. Heart is not enlarged. Noncontrasted stomach and bowel loops appear nonobstructed. Normal appendix. Mild sigmoid diverticulosis. No free fluid/air. Stable left renal cyst and splenic calcified granulomas. Remaining liver, gallbladder, pancreas, spleen, adrenal glands, kidneys, ureters, and bladder appear unremarkable for noncontrast exam. Mild scattered aortoiliac calcifications without AAA. Osseous structures intact again with mild degenerative changes throughout the thoracolumbar spine. Impression: 1. Stable left renal cyst, sigmoid diverticulosis, and evidence for old granulomatous disease. 2. Remaining CT abdomen/pelvis without contrast exam is negative. Comment: Preliminary interpretation was made by C. No critical discrepancy. CTDI 4.33
--- NOTE | 2019-10-21 09:26 | XRAY ---
Indication: Chest pain short of breath. Comparison: November 01, 2011. Portable chest again hyperinflated with a few left lung calcified granulomas. Minimal left base subsegmental atelectasis/scarring. Remaining heart and lungs unremarkable. Bony thorax intact again with mild degenerative changes and distal right clavicle resection. Impression: Nonacute chest with chronic features.
== END 2019-10-21 06:52 | disposition home or self-care (01) ==
LOC: ED 02:25
DX: K21.9 Gastro-esophageal reflux disease without esophagitis (principal); R07.89 Other chest pain; J44.1 Chronic obstructive pulmonary disease with (acute) exacerbation; R10.9 Unspecified abdominal pain; R10.13 Epigastric pain; Z79.899 Other long term (current) drug therapy; R00.2 Palpitations; R11.2 Nausea with vomiting, unspecified; I10 Essential (primary) hypertension; J44.9 Chronic obstructive pulmonary disease, unspecified
CPT/HCPCS: 36415; 71045; 74176; 80053; 82550; 84484; 85025; 85379; 93005; 94150; 94640; 96374; 99284; 99291; J2405; A9270-GY

== ENCOUNTER 2021-05-21 11:25 | Observation (INO) | payer OTHER ==
[2021-05-21] MEDS ORDERED: Sodium Chloride 0.9% 1000 ML 1,000 ML IV STA ×3 (12:00→14:43)
--- NOTE | 2021-05-21 12:08 | ERPHSYRPT ---
- History of Present Illness Source: patient Exam Limitations: other (Poor historian) Patient Subjective Stated Complaint: PT states "I passed out and fell. Ever since I have had chest pain and my back hurts, and I have been vomiting all night." Triage Nursing Assessment: Pt presented alert and oriented X 3, skin pwd Pt ambulates with a cane, unable to stand on own for more than a few minutes. Pt slightly tachypneic. PT coughing intermittantly. Pt holding his abdomen Physician History: 60 yo wm states that he had syncopal episode last night causing fall. Pt states that he has been having N/V x2 days wo hematemesis/Diarrhea x2wks. He also states that he is dyspnic and has been having L sternal chest pain wo radiation. Melena/hematochezia/fever/cough are denied. Witnessed: unwitnessed Prior Episodes: other (Single episode yesterday) Timing/Duration: yesterday Precipitating Factors: other (Syncope) Loss of Consciousness: brief (seconds) Charcter of event(s): collapsed Allergies/Adverse Reactions: No Known Drug Allergies Allergy (Verified 05/04/19 15:50) Home Medications: Diclofenac Sodium 75 mg PO BID 05/04/19 [History] Gabapentin 300 mg PO TID 05/04/19 [History] Albuterol 8 gm Mdi Hfa [Ventolin Hfa MDI] 90 mcg IH Q4-6HPRN PRN 10/21/19 [History] Tamsulosin HCl 0.4 mg [Flomax 0.4 MG] 0.4 mg PO DAILY 10/21/19 [History] Albuterol 2.5 mg/3 ml Neb [Proventil 2.5 mg/3 ml Neb] 1 inh Q4H PRN PRN 05/21/21 [History] Atorvastatin Calcium 80 mg PO DAILY 05/21/21 [History] Budesonide/Formoterol Fumarate [Symbicort 160-4.5 Mcg Inhaler] 6 gm IH DAILY 05/21/21 [History] Bupropion HCl 150 mg Sr [Wellbutrin SR 150 MG] 150 mg PO BID 05/21/21 [History] Carvedilol 3.125 mg [Coreg 3.125 MG] 3.125 mg PO DAILY 05/21/21 [History] Cyclobenzaprine HCl 10 mg [Cyclobenzaprine 10 MG] 10 mg PO TID 05/21/21 [History] Ergocalciferol (Vitamin D2) [Vitamin D2] 1.25 mg PO WEEKLY 05/21/21 [History] Fluticasone Propionate [24 Hour Allergy Relief] 1 spray INTRANASAL DAILY PRN 05/21/21 [History] Losartan Potassium 50 mg [Cozaar 50 MG] 50 mg PO DAILY 05/21/21 [History] Sertraline HCl 100 mg PO BID 05/21/21 [History] Hx Tetanus, Diphtheria Vaccination/Date Given: Yes Hx Influenza Vaccination/Date Given: No Hx Pneumococcal Vaccination/Date Given: No Immunizations Up to Date: Yes Travel Risk - International Travel Have you traveled outside of the country in past 3 weeks: No - Coronavirus Screening Are you exhibiting any of the following symptoms?: No Close contact with a COVID-19 positive Pt in past 14-21 Days: No - Vaccine Status Have you recieved a Covid-19 vaccination: No - Past Medical History Pertinent Past Medical History: Yes Neurological History: No Pertinent History ENT History: No Pertinent History Cardiac History: Angina, Arrhythmia, Coronary Artery Disease, High Cholesterol, Hypertension Respiratory History: COPD, Emphysema Endocrine Medical History: No Pertinent History Musculoskeletal History: Osteoarthritis GI Medical History: No Pertinent History History: No Pertinent History Psycho-Social History: No Pertinent History Male Reproductive Disorders: No Pertinent History Other Medical History: Carpal tunnel surgery on the R hand. 4 surgeries on R shoulder, section of R clavical removed. - Past Surgical History Past Surgical History: Yes Neuro Surgical History: No Pertinent History Cardiac: No Pertinent History Respiratory: No Pertinent History Gastrointestinal: No Pertinent History Genitourinary: No Pertinent History Musculoskeletal: Orthopedic Surgery Male Surgical History: No Pertinent History Other Surgical History: right shoulder surgeries. ,carpal tunnel right wrist,section of right clavicle removed r/t being at age 29, surgery to back 04/2019 - Social History Smoking Status: Current some day smoker How long have you smoked: 40 yrs Exposure to second hand smoke: Yes Alcohol Use: Socially Drug Use: marijuana, methamphetamines Patient Lives Alone: No Significant Family History: no pertinent family hx - Review of Systems Constitutional: No Symptoms, Fatigue, Lethargy Eyes: No Symptoms Ears, Nose, & Throat: No Symptoms Respiratory: Dyspnea Cardiac: No Symptoms, Chest Pain Abdominal/Gastrointestinal: No Symptoms, Nausea, Vomiting, Diarrhea, No Constipation, No Hematemesis, No Hematochezia, No Melena, No Dysphagia, No Appetite Changes Genitourinary Symptoms: No Symptoms Musculoskeletal: Back Pain Skin: No Symptoms Neurological: No Dizziness, No Focal Weakness, No Gait Changes, No Headache, No Irritability, No Lethargy, No Paralysis, No Parasthesia, No Seizure, No Sensory Changes, No Speech Changes, No Tics, No Tremors, No Vertigo Psychological: No Symptoms Endocrine: No Symptoms Hematologic/Lymphatic: No Symptoms Immunological/Allergic: No Symptoms Physical Exam - Nursing Vital Signs Nursing Vital Signs: Initial Vital Signs Temperature 97.8 F 05/21/21 11:39 Pulse Rate 100 H 05/21/21 11:39 Respiratory Rate 24 05/21/21 11:39 Blood Pressure 115/77 05/21/21 11:39 O2 Sat by Pulse Oximetry 99 05/21/21 11:39 Pain Scale Pain Intensity 4 - [place] Coma Scale Best Eye Response ([place]): (4) open spontaneously Best Verbal Response ([place]): (5) oriented Best Motor Response ([place]): (6) obeys commands [place] Total: 15 - Physical Exam General Appearance: no apparent distress Eye Exam: bilateral eye: normal inspection, PERRL, EOMI Ears, Nose, Throat Exam: normal ENT inspection, TMs normal, pharynx normal Neck Exam: normal inspection, non-tender, supple, full range of motion (C-spine NTTP) Respiratory: normal breath sounds, lungs clear, airway intact, No chest tenderness, No respiratory distress Cardiovascular: regular rate/rhythm, normal heart sounds, No murmur Gastrointestinal: soft, normal bowel sounds, No tenderness Back Exam: other (Mid T-spine TTP/Superior L-spine ttp) Extremity Exam: normal inspection, normal range of motion, pelvis stable Mental Status: alert, oriented x 3, 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 Exam: normal hearing, normal speech, PERRL Motor/Sensory: no motor deficit, no sensory deficit, negative Babinski's sign DTR: bicep (R): 2+, bicep (L): 2+ Skin Exam: normal color, warm, dry, No rash SpO2 Interpretation: normal SpO2: 99 O2 Delivery: Room Air - Course Nursing assessment & vital signs reviewed: Yes EKG Interpreted by Me: RATE (NSR/R74/Mildly prolonged QTc/Qwave 3-AVF/No acute ST-Twave changes) - CT Exams Head CT Interpretation: Discussed w/radiologist (Neg) Thoracic Spine CT Interpretation: Discussed w/radiologist (Nothing acute per Rad) Lumbar Spine CT Interpretation: Discussed w/radiologist (Neg per Rad) Ordered Tests: Active Orders 24 hr Category Date Time Status EKG-ER Only STAT Care 05/21/21 12:00 Completed IV Insertion STAT Care 05/21/21 12:00 Completed Clear Liquid Diet 05/21/21 Dinner Active CHEST 1 VIEW (PORTABLE) Stat Exams 05/21/21 13:46 Completed HEAD WITHOUT CONTRAST [CT] Stat Exams 05/21/21 12:01 Completed LUMBAR SPINE W/O [CT] Stat Exams 05/21/21 12:02 Completed THORACIC SPINE W/O CONTRAST [CT] Stat Exams 05/21/21 12:02 Completed CBC W DIFF Stat Lab 05/21/21 12:20 Completed CMP AM.LAB Lab 05/22/21 04:00 Ordered CMP Stat Lab 05/21/21 12:20 Completed D-DIMER QUANTITATIVE Stat Lab 05/21/21 12:20 Completed ETHYL ALCOHOL Stat Lab 05/21/21 12:20 Completed PROTIME WITH INR Stat Lab 05/21/21 12:20 Completed PTT Stat Lab 05/21/21 12:20 Completed TROPONIN Q3H Lab 05/21/21 12:20 Completed TROPONIN Q3H Lab 05/21/21 15:13 Completed TROPONIN Q3H Lab 05/21/21 17:56 Completed TROPONIN Q3H Lab 05/21/21 21:10 Received TROPONIN Q3H Lab 05/22/21 00:00 Ordered UA W/RFX UR CULTURE Stat Lab 05/21/21 12:12 Completed Urine Triage Profile Stat Lab 05/21/21 12:13 Completed Transfer Order Routine Transfer 05/21/21 Completed Medication Summary Generic Name Dose Route Start Last Admin Trade Name Freq PRN Reason Stop Dose Admin Acetaminophen 650 mg 05/21/21 14:12 Tylenol 325 Mg PO 06/20/21 14:11 Q4H PRN PRN PAIN AND/OR FEVER Hydrocodone Bitart/Acetaminophen 1 tab 05/21/21 18:46 [place] 5/325 Mg PO 05/26/21 18:45 QID PRN PRN PAIN Bupropion HCl 150 mg 05/21/21 22:00 Wellbutrin Sr 150 Mg PO 06/20/21 21:59 BID ABNER Cyclobenzaprine HCl 10 mg 05/21/21 22:00 Cyclobenzaprine 10 Mg PO 06/20/21 21:59 TID ABNER Diclofenac Sodium 75 mg 05/21/21 22:00 Voltaren 50 Mg PO 06/20/21 21:59 BID ABNER Fluticasone Propionate 1 gm 05/21/21 19:34 Flonase Nasal NS 06/21/21 09:59 DAILY PRN allergy Gabapentin 300 mg 05/21/21 22:00 Neurontin 300 Mg PO 06/20/21 21:59 TID ABNER Sodium Chloride 1,000 mls @ 150 mls/hr 05/21/21 17:00 05/21/21 17:17 Sodium Chloride 0.9% 1000 Ml IV 06/20/21 16:59 150 mls/hr .Q6H40M ABNER Administration Ondansetron HCl 4 mg 05/21/21 14:12 Zofran 4 Mg/2 Ml Vial IV 06/20/21 14:11 Q6H PRN PRN NAUSEA/VOMITING Pantoprazole Sodium 40 mg 05/21/21 18:00 05/21/21 17:18 Protonix 40 Mg Iv IV 06/20/21 17:59 40 mg Q24H10 ABNER Administration Sertraline HCl 100 mg 05/21/21 22:00 Zoloft 50 Mg Tablet PO 06/20/21 21:59 BID ABNER Discontinued Medications Generic Name Dose Route Start Last Admin Trade Name Freq PRN Reason Stop Dose Admin Fentanyl Citrate 25 mcg 05/21/21 13:52 05/21/21 14:40 Sublimaze 100 Mcg/2 Ml IV 05/21/21 13:53 Not Given STAT ONE Sodium Chloride 1,000 mls @ 999 mls/hr 05/21/21 12:00 05/21/21 13:20 Sodium Chloride 0.9% 1000 Ml IV 05/21/21 13:00 Infused .Q1H1M STA Infusion Sodium Chloride Confirm 05/21/21 12:17 Sodium Chloride 0.9% 1000 Ml Administered 05/21/21 12:18 Dose 1,000 mls @ ud .ROUTE .STK-MED ONE Sodium Chloride 1,000 mls @ 999 mls/hr 05/21/21 13:03 05/21/21 14:40 Sodium Chloride 0.9% 1000 Ml IV 05/21/21 14:03 Infused .Q1H1M STA Infusion Sodium Chloride Confirm 05/21/21 13:18 Sodium Chloride 0.9% 1000 Ml Administered 05/21/21 13:19 Dose 1,000 mls @ ud .ROUTE .STK-MED ONE Potassium Chloride/Sodium Chloride 1,000 mls @ 200 mls/hr 05/21/21 14:15 05/21/21 16:37 Sodium Chloride 0.9% W/ 20 Meq Kcl/Liter IV 06/20/21 14:14 Not Given .Q5H ABNER Sodium Chloride 1,000 mls @ 999 mls/hr 05/21/21 14:43 05/21/21 16:30 Sodium Chloride 0.9% 1000 Ml IV 05/21/21 15:43 Infused .Q1H1M STA Infusion Sodium Chloride Confirm 05/21/21 14:44 Sodium Chloride 0.9% 1000 Ml Administered 05/21/21 14:45 Dose 1,000 mls @ ud .ROUTE .STK-MED ONE Sodium Chloride 1,000 mls @ 150 mls/hr 05/21/21 16:45 Sodium Chloride 0.9% 1000 Ml IV 06/20/21 16:44 .Q6H40M [facility] Ondansetron HCl 4 mg 05/21/21 13:53 05/21/21 14:40 Zofran 4 Mg/2 Ml Vial IV 05/21/21 13:54 Not Given STAT ONE Lab/Rad Data: Laboratory Result Diagrams 05/21/21 12:20 05/21/21 12:20 Laboratory Results 05/21/21 05/21/21 05/21/21 Range/Units 15:13 14:29 12:20 WBC (4.0-10.5) K/mm3 RBC (4.1-5.6) M/mm3 Hgb (12.5-18.0) gm/dl Hct (42-50) % MCV (78-100) fl MCH (26-32) pg MCHC (32-36) g/dl RDW (11.5-14.0) % Plt Count (150-450) K/mm3 MPV (7.5-11.0) fl Gran % (36.0-66.0) % Eos # (Auto) (0-0.5) Absolute Lymphs (auto) (1.0-4.6) Absolute Monos (auto) (0.0-1.3) Lymphocytes % (24.0-44.0) % Monocytes % (0.0-12.0) % Eosinophils % (0.00-5.0) % Basophils % (0.0-0.4) % Absolute Granulocytes (1.4-6.9) Basophils # (0-0.4) PT 11.2 (9.4-12.5) SECONDS INR 0.95 (0.8-3.0) APTT 32.1 (25.1-36.5) SECONDS D-Dimer 309 (215-500) ng/mL Sodium (137-145) mmol/L Potassium (3.5-5.1) mmol/L Chloride (98-107) mmol/L Carbon Dioxide (22-30) mmol/L Anion Gap (5-15) MEQ/L BUN (9-20) mg/dL Creatinine (0.66-1.25) mg/dL Estimated GFR ML/MIN Glucose (74-106) mg/dL Calcium (8.4-10.2) mg/dL Total Bilirubin (0.2-1.3) mg/dL AST (17-59) U/L ALT (0-50) U/L Alkaline Phosphatase (38-126) U/L Troponin I < 0.012 (0.000-0.034) ng/mL Serum Total Protein (6.3-8.2) g/dL Albumin (3.5-5.0) g/dL Urine Color (YELLOW) Urine Appearance (CLEAR) Urine pH (5-6) Ur Specific [place] (1.005-1.025) Urine Protein (Negative) Urine Ketones (NEGATIVE) Urine Blood (0-5) [place]/ul Urine Nitrite (NEGATIVE) Urine Bilirubin (NEGATIVE) Urine Urobilinogen (0-1) mg/dL Ur Leukocyte Esterase (NEGATIVE) Urine WBC (Auto) (0-5) /HPF Urine RBC (Auto) (0-2) /HPF U Hyaline Cast (Auto) (0-2) /LPF U Epithel Cells (Auto) (FEW) /HPF Urine Bacteria (Auto) (NEGATIVE) /HPF Urine Mucus (Auto) (NEGATIVE) /HPF Urine Culture Reflexed (NO) Urine Glucose (NEGATIVE) mg/dL Urine Opiates Level (NEGATIVE) Ur Methadone (NEGATIVE) Urine Barbiturates (NEGATIVE) Ur Phencyclidine (PCP) (NEGATIVE) Urine Amphetamine (NEGATIVE) U Benzodiazepine Level (NEGATIVE) Urine Cocaine (NEGATIVE) Urine Marijuana (THC) (NEGATIVE) Ethyl Alcohol (0-10) mg/dL SARS-CoV-2 (PCR) NEGATIVE (NEGATIVE) 05/21/21 05/21/21 05/21/21 Range/Units 12:20 12:20 12:20 WBC 9.9 (4.0-10.5) K/mm3 RBC 5.67 H (4.1-5.6) M/mm3 Hgb 16.6 (12.5-18.0) gm/dl Hct 49.2 (42-50) % MCV 86.8 (78-100) fl MCH 29.3 (26-32) pg MCHC 33.7 (32-36) g/dl RDW 14.4 H (11.5-14.0) % Plt Count 389 (150-450) K/mm3 MPV 8.9 (7.5-11.0) fl Gran % 68.2 H (36.0-66.0) % Eos # (Auto) 0.28 (0-0.5) Absolute Lymphs (auto) 2.11 (1.0-4.6) Absolute Monos (auto) 0.73 (0.0-1.3) Lymphocytes % 21.4 L (24.0-44.0) % Monocytes % 7.4 (0.0-12.0) % Eosinophils % 2.8 (0.00-5.0) % Basophils % 0.2 (0.0-0.4) % Absolute Granulocytes 6.72 (1.4-6.9) Basophils # 0.02 (0-0.4) PT (9.4-12.5) SECONDS INR (0.8-3.0) APTT (25.1-36.5) SECONDS D-Dimer (215-500) ng/mL Sodium 138 (137-145) mmol/L Potassium 4.2 (3.5-5.1) mmol/L Chloride 101 (98-107) mmol/L Carbon Dioxide 21 L (22-30) mmol/L Anion Gap 20.0 H (5-15) MEQ/L BUN 40 H (9-20) mg/dL Creatinine 2.31 H (0.66-1.25) mg/dL Estimated GFR 31.0 ML/MIN Glucose 111 H (74-106) mg/dL Calcium 9.5 (8.4-10.2) mg/dL Total Bilirubin 0.30 (0.2-1.3) mg/dL AST 21 (17-59) U/L ALT 22 (0-50) U/L Alkaline Phosphatase 87 (38-126) U/L Troponin I < 0.012 (0.000-0.034) ng/mL Serum Total Protein 8.1 (6.3-8.2) g/dL Albumin 4.9 (3.5-5.0) g/dL Urine Color (YELLOW) Urine Appearance (CLEAR) Urine pH (5-6) Ur Specific [place] (1.005-1.025) Urine Protein (Negative) Urine Ketones (NEGATIVE) Urine Blood (0-5) Adilson/ul Urine Nitrite (NEGATIVE) Urine Bilirubin (NEGATIVE) Urine Urobilinogen (0-1) mg/dL Ur Leukocyte Esterase (NEGATIVE) Urine WBC (Auto) (0-5) /HPF Urine RBC (Auto) (0-2) /HPF U Hyaline Cast (Auto) (0-2) /LPF U Epithel Cells (Auto) (FEW) /HPF Urine Bacteria (Auto) (NEGATIVE) /HPF Urine Mucus (Auto) (NEGATIVE) /HPF Urine Culture Reflexed (NO) Urine Glucose (NEGATIVE) mg/dL Urine Opiates Level (NEGATIVE) Ur Methadone (NEGATIVE) Urine Barbiturates (NEGATIVE) Ur Phencyclidine (PCP) (NEGATIVE) Urine Amphetamine (NEGATIVE) U Benzodiazepine Level (NEGATIVE) Urine Cocaine (NEGATIVE) Urine Marijuana (THC) (NEGATIVE) Ethyl Alcohol < 10 (0-10) mg/dL SARS-CoV-2 (PCR) (NEGATIVE) 05/21/21 05/21/21 Range/Units 12:13 12:12 WBC (4.0-10.5) K/mm3 RBC (4.1-5.6) M/mm3 Hgb (12.5-18.0) gm/dl Hct (42-50) % MCV (78-100) fl MCH (26-32) pg MCHC (32-36) g/dl RDW (11.5-14.0) % Plt Count (150-450) K/mm3 MPV (7.5-11.0) fl Gran % (36.0-66.0) % Eos # (Auto) (0-0.5) Absolute Lymphs (auto) (1.0-4.6) Absolute Monos (auto) (0.0-1.3) Lymphocytes % (24.0-44.0) % Monocytes % (0.0-12.0) % Eosinophils % (0.00-5.0) % Basophils % (0.0-0.4) % Absolute Granulocytes (1.4-6.9) Basophils # (0-0.4) PT (9.4-12.5) SECONDS INR (0.8-3.0) APTT (25.1-36.5) SECONDS D-Dimer (215-500) ng/mL Sodium (137-145) mmol/L Potassium (3.5-5.1) mmol/L Chloride (98-107) mmol/L Carbon Dioxide (22-30) mmol/L Anion Gap (5-15) MEQ/L BUN (9-20) mg/dL Creatinine (0.66-1.25) mg/dL Estimated GFR ML/MIN Glucose (74-106) mg/dL Calcium (8.4-10.2) mg/dL Total Bilirubin (0.2-1.3) mg/dL AST (17-59) U/L ALT (0-50) U/L Alkaline Phosphatase (38-126) U/L Troponin I (0.000-0.034) ng/mL Serum Total Protein (6.3-8.2) g/dL Albumin (3.5-5.0) g/dL Urine Color YELLOW (YELLOW) Urine Appearance SLIGHTLY CLOUDY (CLEAR) Urine pH 5.0 (5-6) Ur Specific [place] 1.015 (1.005-1.025) Urine Protein NEGATIVE (Negative) Urine Ketones SMALL (NEGATIVE) Urine Blood NEGATIVE (0-5) Adilson/ul Urine Nitrite NEGATIVE (NEGATIVE) Urine Bilirubin NEGATIVE (NEGATIVE) Urine Urobilinogen NEGATIVE (0-1) mg/dL Ur Leukocyte Esterase NEGATIVE (NEGATIVE) Urine WBC (Auto) 3-5 (0-5) /HPF Urine RBC (Auto) NONE (0-2) /HPF U Hyaline Cast (Auto) 11-25 (0-2) /LPF U Epithel Cells (Auto) RARE (FEW) /HPF Urine Bacteria (Auto) RARE (NEGATIVE) /HPF Urine Mucus (Auto) SLIGHT (NEGATIVE) /HPF Urine Culture Reflexed NO (NO) Urine Glucose NEGATIVE (NEGATIVE) mg/dL Urine Opiates Level NEGATIVE (NEGATIVE) Ur Methadone NEGATIVE (NEGATIVE) Urine Barbiturates NEGATIVE (NEGATIVE) Ur Phencyclidine (PCP) NEGATIVE (NEGATIVE) Urine Amphetamine POSITIVE (NEGATIVE) U Benzodiazepine Level NEGATIVE (NEGATIVE) Urine Cocaine NEGATIVE (NEGATIVE) Urine Marijuana (THC) NEGATIVE (NEGATIVE) Ethyl Alcohol (0-10) mg/dL SARS-CoV-2 (PCR) (NEGATIVE) - Progress Progress: improved Progress Note: 05/21/21 14:[address] Light 05/21/21 21:30 Pt given 1L NS bolus x3/4mg IV Zofran Discussed with : Elicia Will see patient in: hospital (observation) Counseled pt/family regarding: lab results, diagnosis, rad results - Departure Departure Disposition: Observation Clinical Impression: Episode of syncope, Dehydration Condition: Stable Critical Care Time: No
[2021-05-21] MEDS ORDERED: Sodium Chloride 0.9% 1000 ML 1,000 ML ONE ×3 (12:17→14:44)
[2021-05-21 12:34] LABS: Absolute Neutrophil Ct (ANC) 6.72 (1.4-6.9); BASOPHIL % 0.2 % (0.0-0.4); Basophil (Absolute #) 0.02 (0-0.4); Eosinophil % 2.8 % (0.00-5.0); Eosinophil (Absolute #) 0.28 (0-0.5); Hematocrit 49.2 % (42-50); Hemoglobin 16.6 gm/dl (12.5-18.0); Lymphocyte (Absolute #) 2.11 (1.0-4.6); Lymphocytes % 21.4 % (24.0-44.0); Mean Cell Volume 86.8 fl (78-100); Mean Corpuscular Hemoglobin 29.3 pg (26-32); Mean Corpuscular Hgb Concent. 33.7 g/dl (32-36); Mean Platelet Volume 8.9 fl (7.5-11.0); Monocyte (Absolute #) 0.73 (0.0-1.3); Monocytes % 7.4 % (0.0-12.0); Neutrophil % 68.2 % (36.0-66.0); Platelet Count 389 K/mm3 (150-450); Red Blood Count 5.67 M/mm3 (4.1-5.6); Red Cell Distribution Width 14.4 % (11.5-14.0); White Blood Count 9.9 K/mm3 (4.0-10.5)
[2021-05-21 12:48] LABS: ALBUMIN 4.9 g/dL (3.5-5.0); ALKALINE PHOSPHATASE 87 U/L (38-126); BLOOD UREA NITROGEN 40 mg/dL (9-20); CHLORIDE 101 mmol/L (98-107); Calcium 9.5 mg/dL (8.4-10.2); Carbon Dioxide 21 mmol/L (22-30); Creatinine 1 2.31 mg/dL (0.66-1.25); ETHYL ALCOHOL < 10 mg/dL (0-10); Glucose 111 mg/dL (74-106); Potassium 4.2 mmol/L (3.5-5.1); SGOT/AST 21 U/L (17-59); SGPT/ALT 22 U/L (0-50); SODIUM 138 mmol/L (137-145); Total Protein 8.1 g/dL (6.3-8.2)
[2021-05-21 12:54] LABS: INR 0.95 (0.8-3.0); PROTIME 11.2 SECONDS (9.4-12.5)
--- NOTE | 2021-05-21 12:55 | XRAY ---
Indication: Syncope, memory loss, and spine pain. Multiple contiguous axial images obtained through the head without contrast. Comparison: None Normal appearing brain parenchyma, ventricles, and bony calvarium for patient's age. Visualized paranasal sinuses and mastoid air cells are clear. Impression: Normal CT head without contrast exam.
[2021-05-21 12:56] LABS: PTT 32.1 SECONDS (25.1-36.5)
--- NOTE | 2021-05-21 12:59 | XRAY ---
Indication: Syncope, memory loss, and spine pain. S/P fall. Multiple contiguous axial images obtained through the thoracic spine. Sagittal and coronal reformatted images obtained. Comparison: None Osseous structures slightly demineralized consistent with patient's age. Axial images negative for acute fracture, suspicious bony lesions, or spinal canal stenosis. There is mild/moderate multilevel degenerative spondylosis as evidenced by disc space narrowing, endplate sclerosis/spurring, and vacuum disc phenomena. Sagittal and coronal reformatted images demonstrates normal thoracic alignment. No acute compression fracture or subluxation. Visualized soft tissues demonstrates mild pulmonary emphysema, mild scattered subsegmental atelectasis/scarring, and tiny mediastinal/left hilar calcified nodes. Impression: 1. Osteopenia, multilevel degenerative spondylosis, pulmonary emphysema, and old granulomatous disease. 2. Remaining CT thoracic spine is negative.
--- NOTE | 2021-05-21 13:01 | XRAY ---
Indication: Syncope, memory loss, and spine pain. Status post fall. Multiple contiguous axial images obtained through the lumbar spine. Sagittal and coronal reformatted images obtained. Comparison: October 21, 2019 Osseous structures remain slightly demineralized consistent with patient's age. Axial images negative for acute fracture, suspicious bony lesions, or spinal canal stenosis. There is again mild/moderate multilevel degenerative spondylosis as evidenced by disc space narrowing, endplate sclerosis/spurring, and vacuum disc phenomena. Facets are symmetric again with mild L5-S1 degenerative facet arthropathy. Sagittal and coronal reformatted images demonstrates normal lumbar alignment. No acute compression fracture or subluxation. Visualized soft tissues again demonstrates mild scattered aortoiliac calcifications. Impression: 1. Stable osteopenia, multilevel degenerative spondylosis, and arteriosclerotic disease. 2. Remaining CT lumbar spine is negative.
[2021-05-21] MEDS ORDERED: SUBLIMAZE 100 MCG/2 ML IV ONE (13:52)
[2021-05-21] MEDS ORDERED: Zofran 4 MG/2 ML VIAL IV ONE (13:53)
[2021-05-21] MEDS ORDERED: Zofran 4 MG/2 ML VIAL IV PRN (14:12)
--- NOTE | 2021-05-21 14:13 | XRAY ---
Indication: Chest pain. COPD. Comparison: October 21, 2019. Portable chest remains hyperinflated again with minimal left base fibrosis/scarring and a few left lung calcified granulomas. Remaining heart and lungs unremarkable. Bony thorax intact again with mild osteopenia, degenerative changes, and distal right clavicle resection. Impression: Continued nonacute hyperinflated chest with chronic features.
[2021-05-21] MEDS ORDERED: Sodium Chloride 0.9% W/ 20 mEq KCl/LITER 1,000 ML IV SCH (14:15)
[2021-05-21] MEDS ORDERED: Sodium Chloride 0.9% 1000 ML 1,000 ML IV SCH (16:45)
[2021-05-21] MEDS: Sodium Chloride 0.9% 1000 ML 1,000 ML IV SCH ×2 (17:17→23:59)
[2021-05-21] MEDS: PROTONIX 40 MG IV IV SCH (17:18)
[2021-05-21] MEDS ORDERED: NORCO 5/325 MG PO PRN (18:46)
[2021-05-21 19:16] LABS: AMYLASE 57 U/L (30-110); LIPASE 59 U/L (23-300)
[2021-05-21 19:36] LABS: Appearance SLIGHTLY CLOUDY (CLEAR); Bacteria RARE /HPF (NEGATIVE); Bilirubin NEGATIVE (NEGATIVE); Blood NEGATIVE Ery/ul (0-5); Epithelial Cells RARE /HPF (FEW); Glucose NEGATIVE (NEGATIVE); Ketones SMALL (NEGATIVE); Leukocyte Esterase NEGATIVE (NEGATIVE); Mucus SLIGHT /HPF (NEGATIVE); Nitrite NEGATIVE (NEGATIVE); Protein,Urine Dip NEGATIVE (Negative); Specific Gravity 1.015 (1.005-1.025); Urobilinogen NEGATIVE mg/dL (0-1)
[2021-05-21 19:45] LABS: Amphetamine,Urine POSITIVE (NEGATIVE); Barbiturate,Urine NEGATIVE (NEGATIVE); Benzodiazepine,Urine NEGATIVE (NEGATIVE); Cocaine,Urine NEGATIVE (NEGATIVE); Methadone,Urine NEGATIVE (NEGATIVE); Opiate,Urine NEGATIVE (NEGATIVE); PCP,Urine NEGATIVE (NEGATIVE); THC,Urine NEGATIVE (NEGATIVE)
--- NOTE | 2021-05-21 21:10 | XRAY ---
Indication: Midabdomen pain 2 days. Urinary retention. Loose stools 3 weeks. Nausea and vomiting one month. Multiple contiguous images obtained through the abdomen and pelvis without contrast. Comparison: October 21, 2019. Lung bases again demonstrates minimal dependent atelectasis and small left lower lobe calcified granuloma. No infiltrate or effusion. Heart not enlarged. Noncontrast stomach and bowel loops are nonobstructed. Normal appendix. Stable minimal sigmoid diverticulosis without diverticulitis, splenic calcified granulomas, and left renal cyst. Urinary bladder moderately distended. No free fluid/air. Remaining liver, gallbladder, pancreas, spleen, adrenal glands, kidneys, ureters, and bladder are unremarkable for noncontrast exam. There remains mild aortoiliac calcifications without AAA. Osseous structures intact again with mild/moderate degenerative changes throughout the thoracolumbar spine. No ventral or inguinal hernias. Impression: 1. Stable left renal cyst, sigmoid diverticulosis, chronic bony findings, and old granulomatous disease. 2. Remaining CT abdomen/pelvis without contrast exam is negative.
[2021-05-21] MEDS: TYLENOL 325 MG PO PRN (21:56)
[2021-05-21] MEDS ORDERED: Wellbutrin SR 150 MG PO SCH (22:00)
[2021-05-21] MEDS: Cyclobenzaprine 10 MG PO SCH (22:56)
[2021-05-21] MEDS: NEURONTIN 300 MG PO SCH (22:57)
[2021-05-21] MEDS: VOLTAREN 50 MG PO SCH (22:57)
[2021-05-21] MEDS: ZOLOFT 50 MG TABLET PO SCH (22:59)
[2021-05-21] MEDS ORDERED: Coreg 3.125 MG ONE (23:20)
[2021-05-21] MEDS ORDERED: Flomax 0.4 MG ONE (23:20)
[2021-05-21] MEDS ORDERED: Cozaar 50 MG ONE (23:20)
[2021-05-21] MEDS ORDERED: ZOCOR 20MG ONE (23:20)
[2021-05-21] MEDS: Coreg 3.125 MG PO SCH ×2 (23:25→23:26)
[2021-05-21] MEDS: Flomax 0.4 MG PO SCH (23:26)
[2021-05-21] MEDS: Cozaar 50 MG PO SCH (23:26)
[2021-05-22 06:10] LABS: Absolute Neutrophil Ct (ANC) 3.76 (1.4-6.9); BASOPHIL % 0.5 % (0.0-0.4); Basophil (Absolute #) 0.04 (0-0.4); Eosinophil % 5.2 % (0.00-5.0); Eosinophil (Absolute #) 0.42 (0-0.5); Hematocrit 38.9 % (42-50); Hemoglobin 12.8 gm/dl (12.5-18.0); Lymphocyte (Absolute #) 3.12 (1.0-4.6); Lymphocytes % 38.8 % (24.0-44.0); Mean Cell Volume 90.5 fl (78-100); Mean Corpuscular Hemoglobin 29.8 pg (26-32); Mean Corpuscular Hgb Concent. 32.9 g/dl (32-36); Mean Platelet Volume 8.8 fl (7.5-11.0); Monocyte (Absolute #) 0.71 (0.0-1.3); Monocytes % 8.8 % (0.0-12.0); Neutrophil % 46.7 % (36.0-66.0); Platelet Count 296 K/mm3 (150-450); Red Cell Distribution Width 14.6 % (11.5-14.0); White Blood Count 8.1 K/mm3 (4.0-10.5)
[2021-05-22 06:16] LABS: ALBUMIN 3.3 g/dL (3.5-5.0); ALKALINE PHOSPHATASE 57 U/L (38-126); ANION GAP 11.5 MEQ/L (5-15); BLOOD UREA NITROGEN 18 mg/dL (9-20); CHLORIDE 112 mmol/L (98-107); Calcium 8.1 mg/dL (8.4-10.2); Carbon Dioxide 21 mmol/L (22-30); Creatinine 1 0.87 mg/dL (0.66-1.25); EST GLOMERULAR FILTRATION RATE > 60.0 ML/MIN; Glucose 95 mg/dL (74-106); SGOT/AST 18 U/L (17-59); SGPT/ALT 15 U/L (0-50); SODIUM 140 mmol/L (137-145); Total Protein 5.8 g/dL (6.3-8.2)
[2021-05-22] MEDS: Sodium Chloride 0.9% 1000 ML 1,000 ML IV SCH ×3 (06:39→20:17)
[2021-05-22] MEDS: TYLENOL 325 MG PO PRN ×2 (07:46→13:33)
[2021-05-22] MEDS ORDERED: PROVENTIL 2.5 MG/3 ML NEB IH PRN (07:49)
[2021-05-22] MEDS: Advair Hfa 115/21 Common canister IH SCH ×2 (08:20→18:53)
[2021-05-22] MEDS: Cyclobenzaprine 10 MG PO SCH ×3 (09:35→21:27)
[2021-05-22] MEDS: ZOLOFT 50 MG TABLET PO SCH ×3 (09:36→10:37)
[2021-05-22] MEDS: PROTONIX 40 MG IV IV SCH (09:36)
[2021-05-22] MEDS: VOLTAREN 50 MG PO SCH ×2 (09:37→21:28)
[2021-05-22] MEDS: NEURONTIN 300 MG PO SCH ×3 (09:38→21:27)
[2021-05-22] MEDS ORDERED: NON-FORMULARY ITEM (Sertraline Hcl [Sertraline Hcl] 100 MG) PO SCH (10:00)
[2021-05-22] MEDS ORDERED: NON-FORMULARY ITEM (Budesonide/Formoterol Fumarate [Symbicort 160-4.5 Mcg Inhaler] 6 GM) IH SCH (10:00)
--- NOTE | 2021-05-22 11:15 | PCM.HP ---
History of Present Illness - Chief Complaint Chief Complaint: Dehydration History of Present Illness: is a 60 year old male patient of [employer] Phuong Barrera with PMHx COPD,BPH/urinary retention,depression,chronic back pain,COPD-current every day smoker 1/2ppd. He presented to ER with N/V/D watery diarrhea 4-5 x a day for 3 weeks c/o low abd cramp prior to diarrhea. Has greasy food intol for about a year. - Review of Systems Constitutional: Fatigue Eyes: No Symptoms Ears, Nose, & Throat: No Symptoms Respiratory: Cough (chronic,smokers cough) Abdominal/Gastrointestinal: Nausea, Vomiting, Diarrhea, Other (see HPI) Genitourinary Symptoms: Hesitancy, Urinary Retention (missed doses of Flomax) Musculoskeletal: Back Pain (chronic), Fall (near syncope due to dehydration) Skin: No Symptoms Neurological: Other (no focal symptoms) Endocrine: No Symptoms Hematologic/Lymphatic: No Symptoms Medications & Allergies Home Medications: Home Medication List Diclofenac Sodium 75 mg PO BID 05/04/19 [History Confirmed 05/21/21] Gabapentin 300 mg PO TID 05/04/19 [History Confirmed 05/21/21] Albuterol 8 gm Mdi Hfa [Ventolin Hfa MDI] 90 mcg IH Q4-6HPRN PRN 10/21/19 [History Confirmed 05/21/21] Tamsulosin HCl 0.4 mg [Flomax 0.4 MG] 0.4 mg PO QPM 10/21/19 [History Confirmed 05/21/21] Albuterol 2.5 mg/3 ml Neb [Proventil 2.5 mg/3 ml Neb] 1 inh Q4H PRN PRN 05/21/21 [History Confirmed 05/21/21] Atorvastatin Calcium 80 mg PO HS 05/21/21 [History Confirmed 05/21/21] Budesonide/Formoterol Fumarate [Symbicort 160-4.5 Mcg Inhaler] 6 gm IH DAILY 05/21/21 [History Confirmed 05/21/21] Bupropion HCl 150 mg Sr [Wellbutrin SR 150 MG] 150 mg PO BID 05/21/21 [History Confirmed 05/21/21] Carvedilol 3.125 mg [Coreg 3.125 MG] 3.125 mg PO HS 05/21/21 [History Confirmed 05/21/21] Cyclobenzaprine HCl 10 mg [Cyclobenzaprine 10 MG] 10 mg PO TID 05/21/21 [History Confirmed 05/21/21] Ergocalciferol (Vitamin D2) [Vitamin D2] 1.25 mg PO WEEKLY 05/21/21 [History Confirmed 05/21/21] Fluticasone Propionate [24 Hour Allergy Relief] 1 spray INTRANASAL HS 05/21/21 [History Confirmed 05/21/21] Losartan Potassium 50 mg [Cozaar 50 MG] 50 mg PO HS 05/21/21 [History Confirmed 05/21/21] Sertraline HCl 50 mg [Zoloft 50 mg Tablet] 50 mg PO DAILY #30 tab 05/23/21 [Rx] Allergies/Adverse Reactions: Allergies Allergy/AdvReac Type Severity Reaction Status Date / Time No Known Drug Allergies Allergy Verified 05/04/19 15:50 - Past Medical History Past Medical History: Yes Neurological History: No Pertinent History ENT History: No Pertinent History Cardiac History: Angina, Arrhythmia, Coronary Artery Disease, High Cholesterol, Hypertension Respiratory History: COPD, Emphysema Endocrine Medical History: No Pertinent History Musculoskelatal History: Osteoarthritis GI Medical History: No Pertinent History History: No Pertinent History Pyscho-Social History: No Pertinent History Male Reproductive Disorders: No Pertinent History Comment: Carpal tunnel surgery on the R hand. 4 surgeries on R shoulder, section of R clavical removed. - Past Surgical History Past Surgical History: Yes Neuro Surgical History: No Pertinent History Cardiac History: No Pertinent History Respiratory Surgery: No Pertinent History GI Surgical History: No Pertinent History Genitourinary Surgical Hx: No Pertinent History Musculskeletal Surgical Hx: Orthopedic Surgery Male Surgical History: No Pertinent History Other Surgical History: right shoulder surgeries. ,carpal tunnel right wrist,section of right clavicle removed r/t being at age 29, surgery to back 04/2019 - Social History Smoking Status: Current some day smoker How long have you smoked: 40 yrs Exposure to second hand smoke: Yes Alcohol: None Drug Use: marijuana, methamphetamines Significant Family History: no pertinent family hx - Physical Exam Vital Signs: Vital Signs - 24 hr Temp Pulse Resp BP Pulse Ox 05/22/21 10:00 18 05/22/21 08:29 84 18 92 L 05/22/21 07:22 97.8 F 82 21 124/71 94 L 05/22/21 06:00 18 05/22/21 04:00 97.2 F 79 18 127/74 97 05/22/21 01:21 18 05/21/21 23:48 97.9 F 84 18 118/81 98 05/21/21 22:00 18 05/21/21 21:31 99 05/21/21 19:44 97.8 F 89 18 119/66 96 05/21/21 18:00 20 05/21/21 17:41 97.5 F 88 20 160/73 98 05/21/21 17:31 97.5 F 88 20 160/73 98 05/21/21 16:54 97.5 F 88 20 160/73 98 05/21/21 14:48 85 18 118/73 94 L 05/21/21 13:22 85 20 105/68 95 05/21/21 12:27 92 H 18 110/70 98 05/21/21 11:39 97.8 F 100 H 24 115/77 99 General Appearance: no apparent distress Neurologic Exam: alert, oriented x 3, cooperative, normal mood/affect Eye Exam: eyes nml inspection Ears, Nose, Throat Exam: normal ENT inspection Neck Exam: normal inspection Respiratory Exam: diminished breath sounds Cardiovascular Exam: regular rate/rhythm Gastrointestinal/Abdomen Exam: soft, normal bowel sounds, tenderness (minimal periumbilical) Rectal Exam: not done Back Exam: normal inspection Extremity Exam: normal inspection Skin Exam: other (dusky color) Results - Labs Lab/Micro Results: Lab Results-Last 24 Hours 05/21/21 05/21/21 05/21/21 Range/Units 12:12 12:13 12:20 WBC (4.0-10.5) K/mm3 RBC (4.1-5.6) M/mm3 Hgb (12.5-18.0) gm/dl Hct (42-50) % MCV (78-100) fl MCH (26-32) pg MCHC (32-36) g/dl RDW (11.5-14.0) % Plt Count (150-450) K/mm3 MPV (7.5-11.0) fl Gran % (36.0-66.0) % Eos # (Auto) (0-0.5) Absolute Lymphs (auto) (1.0-4.6) Absolute Monos (auto) (0.0-1.3) Lymphocytes % (24.0-44.0) % Monocytes % (0.0-12.0) % Eosinophils % (0.00-5.0) % Basophils % (0.0-0.4) % Absolute Granulocytes (1.4-6.9) Basophils # (0-0.4) PT (9.4-12.5) SECONDS INR (0.8-3.0) APTT (25.1-36.5) SECONDS D-Dimer (215-500) ng/mL Sodium (137-145) mmol/L Potassium (3.5-5.1) mmol/L Chloride (98-107) mmol/L Carbon Dioxide (22-30) mmol/L Anion Gap (5-15) MEQ/L BUN (9-20) mg/dL Creatinine (0.66-1.25) mg/dL Estimated GFR ML/MIN Glucose (74-106) mg/dL Calcium (8.4-10.2) mg/dL Total Bilirubin (0.2-1.3) mg/dL AST (17-59) U/L ALT (0-50) U/L Alkaline Phosphatase (38-126) U/L Troponin I < 0.012 (0.000-0.034) ng/mL Serum Total Protein (6.3-8.2) g/dL Albumin (3.5-5.0) g/dL Amylase (30-110) U/L Lipase (23-300) U/L Urine Color YELLOW (YELLOW) Urine Appearance SLIGHTLY CLOUDY (CLEAR) Urine pH 5.0 (5-6) Ur Specific Hatch 1.015 (1.005-1.025) Urine Protein NEGATIVE (Negative) Urine Ketones SMALL (NEGATIVE) Urine Blood NEGATIVE (0-5) Adilson/ul Urine Nitrite NEGATIVE (NEGATIVE) Urine Bilirubin NEGATIVE (NEGATIVE) Urine Urobilinogen NEGATIVE (0-1) mg/dL Ur Leukocyte Esterase NEGATIVE (NEGATIVE) Urine WBC (Auto) 3-5 (0-5) /HPF Urine RBC (Auto) NONE (0-2) /HPF U Hyaline Cast (Auto) 11-25 (0-2) /LPF U Epithel Cells (Auto) RARE (FEW) /HPF Urine Bacteria (Auto) RARE (NEGATIVE) /HPF Urine Mucus (Auto) SLIGHT (NEGATIVE) /HPF Urine Culture Reflexed NO (NO) Urine Glucose NEGATIVE (NEGATIVE) mg/dL Urine Opiates Level NEGATIVE (NEGATIVE) Ur Methadone NEGATIVE (NEGATIVE) Urine Barbiturates NEGATIVE (NEGATIVE) Ur Phencyclidine (PCP) NEGATIVE (NEGATIVE) Urine Amphetamine POSITIVE (NEGATIVE) U Benzodiazepine Level NEGATIVE (NEGATIVE) Urine Cocaine NEGATIVE (NEGATIVE) Urine Marijuana (THC) NEGATIVE (NEGATIVE) Ethyl Alcohol (0-10) mg/dL SARS-CoV-2 (PCR) (NEGATIVE) 05/21/21 05/21/21 05/21/21 Range/Units 12:20 12:20 12:20 WBC 9.9 (4.0-10.5) K/mm3 RBC 5.67 H (4.1-5.6) M/mm3 Hgb 16.6 (12.5-18.0) gm/dl Hct 49.2 (42-50) % MCV 86.8 (78-100) fl MCH 29.3 (26-32) pg MCHC 33.7 (32-36) g/dl RDW 14.4 H (11.5-14.0) % Plt Count 389 (150-450) K/mm3 MPV 8.9 (7.5-11.0) fl Gran % 68.2 H (36.0-66.0) % Eos # (Auto) 0.28 (0-0.5) Absolute Lymphs (auto) 2.11 (1.0-4.6) Absolute Monos (auto) 0.73 (0.0-1.3) Lymphocytes % 21.4 L (24.0-44.0) % Monocytes % 7.4 (0.0-12.0) % Eosinophils % 2.8 (0.00-5.0) % Basophils % 0.2 (0.0-0.4) % Absolute Granulocytes 6.72 (1.4-6.9) Basophils # 0.02 (0-0.4) PT 11.2 (9.4-12.5) SECONDS INR 0.95 (0.8-3.0) APTT 32.1 (25.1-36.5) SECONDS D-Dimer 309 (215-500) ng/mL Sodium 138 (137-145) mmol/L Potassium 4.2 (3.5-5.1) mmol/L Chloride 101 (98-107) mmol/L Carbon Dioxide 21 L (22-30) mmol/L Anion Gap 20.0 H (5-15) MEQ/L BUN 40 H (9-20) mg/dL Creatinine 2.31 H (0.66-1.25) mg/dL Estimated GFR 31.0 ML/MIN Glucose 111 H (74-106) mg/dL Calcium 9.5 (8.4-10.2) mg/dL Total Bilirubin 0.30 (0.2-1.3) mg/dL AST 21 (17-59) U/L ALT 22 (0-50) U/L Alkaline Phosphatase 87 (38-126) U/L Troponin I (0.000-0.034) ng/mL Serum Total Protein 8.1 (6.3-8.2) g/dL Albumin 4.9 (3.5-5.0) g/dL Amylase (30-110) U/L Lipase (23-300) U/L Urine Color (YELLOW) Urine Appearance (CLEAR) Urine pH (5-6) Ur Specific Hatch (1.005-1.025) Urine Protein (Negative) Urine Ketones (NEGATIVE) Urine Blood (0-5) Adilson/ul Urine Nitrite (NEGATIVE) Urine Bilirubin (NEGATIVE) Urine Urobilinogen (0-1) mg/dL Ur Leukocyte Esterase (NEGATIVE) Urine WBC (Auto) (0-5) /HPF Urine RBC (Auto) (0-2) /HPF U Hyaline Cast (Auto) (0-2) /LPF U Epithel Cells (Auto) (FEW) /HPF Urine Bacteria (Auto) (NEGATIVE) /HPF Urine Mucus (Auto) (NEGATIVE) /HPF Urine Culture Reflexed (NO) Urine Glucose (NEGATIVE) mg/dL Urine Opiates Level (NEGATIVE) Ur Methadone (NEGATIVE) Urine Barbiturates (NEGATIVE) Ur Phencyclidine (PCP) (NEGATIVE) Urine Amphetamine (NEGATIVE) U Benzodiazepine Level (NEGATIVE) Urine Cocaine (NEGATIVE) Urine Marijuana (THC) (NEGATIVE) Ethyl Alcohol < 10 (0-10) mg/dL SARS-CoV-2 (PCR) (NEGATIVE) 05/21/21 05/21/21 05/21/21 Range/Units 14:29 15:13 17:56 WBC (4.0-10.5) K/mm3 RBC (4.1-5.6) M/mm3 Hgb (12.5-18.0) gm/dl Hct (42-50) % MCV (78-100) fl MCH (26-32) pg MCHC (32-36) g/dl RDW (11.5-14.0) % Plt Count (150-450) K/mm3 MPV (7.5-11.0) fl Gran % (36.0-66.0) % Eos # (Auto) (0-0.5) Absolute Lymphs (auto) (1.0-4.6) Absolute Monos (auto) (0.0-1.3) Lymphocytes % (24.0-44.0) % Monocytes % (0.0-12.0) % Eosinophils % (0.00-5.0) % Basophils % (0.0-0.4) % Absolute Granulocytes (1.4-6.9) Basophils # (0-0.4) PT (9.4-12.5) SECONDS INR (0.8-3.0) APTT (25.1-36.5) SECONDS D-Dimer (215-500) ng/mL Sodium (137-145) mmol/L Potassium (3.5-5.1) mmol/L Chloride (98-107) mmol/L Carbon Dioxide (22-30) mmol/L Anion Gap (5-15) MEQ/L BUN (9-20) mg/dL Creatinine (0.66-1.25) mg/dL Estimated GFR ML/MIN Glucose (74-106) mg/dL Calcium (8.4-10.2) mg/dL Total Bilirubin (0.2-1.3) mg/dL AST (17-59) U/L ALT (0-50) U/L Alkaline Phosphatase (38-126) U/L Troponin I < 0.012 < 0.012 (0.000-0.034) ng/mL Serum Total Protein (6.3-8.2) g/dL Albumin (3.5-5.0) g/dL Amylase (30-110) U/L Lipase (23-300) U/L Urine Color (YELLOW) Urine Appearance (CLEAR) Urine pH (5-6) Ur Specific Hatch (1.005-1.025) Urine Protein (Negative) Urine Ketones (NEGATIVE) Urine Blood (0-5) Adilson/ul Urine Nitrite (NEGATIVE) Urine Bilirubin (NEGATIVE) Urine Urobilinogen (0-1) mg/dL Ur Leukocyte Esterase (NEGATIVE) Urine WBC (Auto) (0-5) /HPF Urine RBC (Auto) (0-2) /HPF U Hyaline Cast (Auto) (0-2) /LPF U Epithel Cells (Auto) (FEW) /HPF Urine Bacteria (Auto) (NEGATIVE) /HPF Urine Mucus (Auto) (NEGATIVE) /HPF Urine Culture Reflexed (NO) Urine Glucose (NEGATIVE) mg/dL Urine Opiates Level (NEGATIVE) Ur Methadone (NEGATIVE) Urine Barbiturates (NEGATIVE) Ur Phencyclidine (PCP) (NEGATIVE) Urine Amphetamine (NEGATIVE) U Benzodiazepine Level (NEGATIVE) Urine Cocaine (NEGATIVE) Urine Marijuana (THC) (NEGATIVE) Ethyl Alcohol (0-10) mg/dL SARS-CoV-2 (PCR) NEGATIVE (NEGATIVE) 05/21/21 05/21/21 05/22/21 Range/Units 18:38 21:10 00:40 WBC (4.0-10.5) K/mm3 RBC (4.1-5.6) M/mm3 Hgb (12.5-18.0) gm/dl Hct (42-50) % MCV (78-100) fl MCH (26-32) pg MCHC (32-36) g/dl RDW (11.5-14.0) % Plt Count (150-450) K/mm3 MPV (7.5-11.0) fl Gran % (36.0-66.0) % Eos # (Auto) (0-0.5) Absolute Lymphs (auto) (1.0-4.6) Absolute Monos (auto) (0.0-1.3) Lymphocytes % (24.0-44.0) % Monocytes % (0.0-12.0) % Eosinophils % (0.00-5.0) % Basophils % (0.0-0.4) % Absolute Granulocytes (1.4-6.9) Basophils # (0-0.4) PT (9.4-12.5) SECONDS INR (0.8-3.0) APTT (25.1-36.5) SECONDS D-Dimer (215-500) ng/mL Sodium (137-145) mmol/L Potassium (3.5-5.1) mmol/L Chloride (98-107) mmol/L Carbon Dioxide (22-30) mmol/L Anion Gap (5-15) MEQ/L BUN (9-20) mg/dL Creatinine (0.66-1.25) mg/dL Estimated GFR ML/MIN Glucose (74-106) mg/dL Calcium (8.4-10.2) mg/dL Total Bilirubin (0.2-1.3) mg/dL AST (17-59) U/L ALT (0-50) U/L Alkaline Phosphatase (38-126) U/L Troponin I < 0.012 < 0.012 (0.000-0.034) ng/mL Serum Total Protein (6.3-8.2) g/dL Albumin (3.5-5.0) g/dL Amylase 57 (30-110) U/L Lipase 59 (23-300) U/L Urine Color (YELLOW) Urine Appearance (CLEAR) Urine pH (5-6) Ur Specific Hatch (1.005-1.025) Urine Protein (Negative) Urine Ketones (NEGATIVE) Urine Blood (0-5) Adilson/ul Urine Nitrite (NEGATIVE) Urine Bilirubin (NEGATIVE) Urine Urobilinogen (0-1) mg/dL Ur Leukocyte Esterase (NEGATIVE) Urine WBC (Auto) (0-5) /HPF Urine RBC (Auto) (0-2) /HPF U Hyaline Cast (Auto) (0-2) /LPF U Epithel Cells (Auto) (FEW) /HPF Urine Bacteria (Auto) (NEGATIVE) /HPF Urine Mucus (Auto) (NEGATIVE) /HPF Urine Culture Reflexed (NO) Urine Glucose (NEGATIVE) mg/dL Urine Opiates Level (NEGATIVE) Ur Methadone (NEGATIVE) Urine Barbiturates (NEGATIVE) Ur Phencyclidine (PCP) (NEGATIVE) Urine Amphetamine (NEGATIVE) U Benzodiazepine Level (NEGATIVE) Urine Cocaine (NEGATIVE) Urine Marijuana (THC) (NEGATIVE) Ethyl Alcohol (0-10) mg/dL SARS-CoV-2 (PCR) (NEGATIVE) 05/22/21 05/22/21 Range/Units 05:55 05:55 WBC 8.1 (4.0-10.5) K/mm3 RBC 4.30 (4.1-5.6) M/mm3 Hgb 12.8 D (12.5-18.0) gm/dl Hct 38.9 L (42-50) % MCV 90.5 (78-100) fl MCH 29.8 (26-32) pg MCHC 32.9 (32-36) g/dl RDW 14.6 H (11.5-14.0) % Plt Count 296 (150-450) K/mm3 MPV 8.8 (7.5-11.0) fl Gran % 46.7 (36.0-66.0) % Eos # (Auto) 0.42 (0-0.5) Absolute Lymphs (auto) 3.12 (1.0-4.6) Absolute Monos (auto) 0.71 (0.0-1.3) Lymphocytes % 38.8 (24.0-44.0) % Monocytes % 8.8 (0.0-12.0) % Eosinophils % 5.2 H (0.00-5.0) % Basophils % 0.5 (0.0-0.4) % Absolute Granulocytes 3.76 (1.4-6.9) Basophils # 0.04 (0-0.4) PT (9.4-12.5) SECONDS INR (0.8-3.0) APTT (25.1-36.5) SECONDS D-Dimer (215-500) ng/mL Sodium 140 (137-145) mmol/L Potassium 4.0 (3.5-5.1) mmol/L Chloride 112 H (98-107) mmol/L Carbon Dioxide 21 L (22-30) mmol/L Anion Gap 11.5 (5-15) MEQ/L BUN 18 (9-20) mg/dL Creatinine 0.87 (0.66-1.25) mg/dL Estimated GFR > 60.0 ML/MIN Glucose 95 (74-106) mg/dL Calcium 8.1 L (8.4-10.2) mg/dL Total Bilirubin 0.20 (0.2-1.3) mg/dL AST 18 (17-59) U/L ALT 15 (0-50) U/L Alkaline Phosphatase 57 (38-126) U/L Troponin I (0.000-0.034) ng/mL Serum Total Protein 5.8 L (6.3-8.2) g/dL Albumin 3.3 L (3.5-5.0) g/dL Amylase (30-110) U/L Lipase (23-300) U/L Urine Color (YELLOW) Urine Appearance (CLEAR) Urine pH (5-6) Ur Specific Hatch (1.005-1.025) Urine Protein (Negative) Urine Ketones (NEGATIVE) Urine Blood (0-5) Adilson/ul Urine Nitrite (NEGATIVE) Urine Bilirubin (NEGATIVE) Urine Urobilinogen (0-1) mg/dL Ur Leukocyte Esterase (NEGATIVE) Urine WBC (Auto) (0-5) /HPF Urine RBC (Auto) (0-2) /HPF U Hyaline Cast (Auto) (0-2) /LPF U Epithel Cells (Auto) (FEW) /HPF Urine Bacteria (Auto) (NEGATIVE) /HPF Urine Mucus (Auto) (NEGATIVE) /HPF Urine Culture Reflexed (NO) Urine Glucose (NEGATIVE) mg/dL Urine Opiates Level (NEGATIVE) Ur Methadone (NEGATIVE) Urine Barbiturates (NEGATIVE) Ur Phencyclidine (PCP) (NEGATIVE) Urine Amphetamine (NEGATIVE) U Benzodiazepine Level (NEGATIVE) Urine Cocaine (NEGATIVE) Urine Marijuana (THC) (NEGATIVE) Ethyl Alcohol (0-10) mg/dL SARS-CoV-2 (PCR) (NEGATIVE) - Radiology Impressions Radiology Exams & Impressions: Radiology Procedures Category Date Time Status ABDOMEN AND PELVIS W/0 CONTRAS [CT] Urgent Exams 05/21/21 19:08 Completed CHEST 1 VIEW (PORTABLE) Stat Exams 05/21/21 13:46 Completed HEAD WITHOUT CONTRAST [CT] Stat Exams 05/21/21 12:01 Completed LUMBAR SPINE W/O [CT] Stat Exams 05/21/21 12:02 Completed THORACIC SPINE W/O CONTRAST [CT] Stat Exams 05/21/21 12:02 Completed - Other Procedures and Tests Respiratory Therapy 05/22/21 08:29 Respiratory Therapy Assessment DAILY Assessment/Plan (1) Dehydration Current Visit: Yes Status: Acute Assessment & Plan: due to diarrhea x 3 weeks Code(s): E86.0 - DEHYDRATION (2) Diarrhea Current Visit: Yes Status: Chronic Qualifiers: Diarrhea type: unspecified type Qualified Code(s): R19.7 - Diarrhea, unspecified Assessment & Plan: GI panel negativ,neg C.dif toxin. Is on high dose Zoloft 200mg daily can cause diarrhea. Decreased to 50mg daily Code(s): R19.7 - DIARRHEA, UNSPECIFIED (3) Back pain Current Visit: Yes Status: Chronic Qualifiers: Back pain location: low back pain Chronicity: chronic Back pain laterality: unspecified Sciatica presence: with sciatica Sciatica laterality: sciatica laterality unspecified Qualified Code(s): M54.40 - Lumbago with sciatica, unspecified side; G89.29 - Other chronic pain Code(s): M54.9 - DORSALGIA, UNSPECIFIED (4) Fall Current Visit: Yes Status: Resolved Qualifiers: Encounter type: subsequent encounter Qualified Code(s): W19.XXXD - Unspecified fall, subsequent encounter Assessment & Plan: states leg got weak and he fell no head trauma Code(s): W19.XXXA - UNSPECIFIED FALL, INITIAL ENCOUNTER
[2021-05-22 16:21] LABS: Adenovirus F 40/41 NEGATIVE (NEGATIVE); Astrovirus NEGATIVE (NEGATIVE); C. Difficile Organism NEGATIVE (NEGATIVE); Campylobacter NEGATIVE (NEGATIVE); Cryptosporidium NEGATIVE (NEGATIVE); Cyclospora cayentanensis NEGATIVE (NEGATIVE); Entamoeaba histolytica NEGATIVE (NEGATIVE); Enteroaggregative E.coli NEGATIVE (NEGATIVE); Enteropathogenic E.coli NEGATIVE (NEGATIVE); Enterotoxigenic E.coli NEGATIVE (NEGATIVE); Giardia lamblia NEGATIVE (NEGATIVE); Norovirus GI/GII NEGATIVE (NEGATIVE); Plesiomonas shigelloides NEGATIVE (NEGATIVE); Salmonella NEGATIVE (NEGATIVE); Shiga-like toxin prod.E.coli NEGATIVE (NEGATIVE); Vibrio NEGATIVE (NEGATIVE); Vibrio cholerae NEGATIVE (NEGATIVE); Yersinia enterocolitica NEGATIVE (NEGATIVE)
[2021-05-22 16:22] LABS: Rotavirus A NEGATIVE (NEGATIVE); Sapovirus NEGATIVE (NEGATIVE)
[2021-05-22] MEDS: Flonase NASAL NS SCH ×3 (19:24→20:22)
[2021-05-22] MEDS: Cozaar 50 MG PO SCH (21:27)
[2021-05-22] MEDS: Coreg 3.125 MG PO SCH (21:27)
[2021-05-22] MEDS: Flomax 0.4 MG PO SCH (21:28)
[2021-05-22] MEDS ORDERED: ZOCOR 20MG PO SCH (22:00)
[2021-05-22] MEDS ORDERED: NON-FORMULARY ITEM (Atorvastatin Calcium [Atorvastatin Calcium] 80 MG) PO SCH (22:00)
[2021-05-23] MEDS: Sodium Chloride 0.9% 1000 ML 1,000 ML IV SCH (02:57)
[2021-05-23 06:27] LABS: Hematocrit 38.4 % (42-50); Hemoglobin 12.5 gm/dl (12.5-18.0); Mean Cell Volume 90.8 fl (78-100); Mean Corpuscular Hemoglobin 29.6 pg (26-32); Mean Corpuscular Hgb Concent. 32.6 g/dl (32-36); Mean Platelet Volume 9.1 fl (7.5-11.0); Platelet Count 302 K/mm3 (150-450); Red Blood Count 4.23 M/mm3 (4.1-5.6); Red Cell Distribution Width 14.5 % (11.5-14.0)
[2021-05-23 06:45] LABS: ALBUMIN 3.3 g/dL (3.5-5.0); ALKALINE PHOSPHATASE 54 U/L (38-126); ANION GAP 11.1 MEQ/L (5-15); BLOOD UREA NITROGEN 8 mg/dL (9-20); CHLORIDE 112 mmol/L (98-107); Calcium 8.2 mg/dL (8.4-10.2); Carbon Dioxide 24 mmol/L (22-30); Creatinine 1 0.68 mg/dL (0.66-1.25); EST GLOMERULAR FILTRATION RATE > 60.0 ML/MIN; Glucose 83 mg/dL (74-106); Potassium 3.7 mmol/L (3.5-5.1); SGOT/AST 16 U/L (17-59); SGPT/ALT 12 U/L (0-50); SODIUM 143 mmol/L (137-145); Total Protein 5.7 g/dL (6.3-8.2)
[2021-05-23] MEDS: Advair Hfa 115/21 Common canister IH SCH (06:55)
[2021-05-23 08:38] VITALS: BP 166/89; PULSE 82; O2SAT 94
[2021-05-23] MEDS: NEURONTIN 300 MG PO SCH (09:24)
[2021-05-23] MEDS: Cyclobenzaprine 10 MG PO SCH (09:24)
[2021-05-23] MEDS: PROTONIX 40 MG IV IV SCH (09:24)
[2021-05-23] MEDS: VOLTAREN 50 MG PO SCH (09:25)
--- NOTE | 2021-05-23 09:50 | PCM.DCORD ---
- Discharge Disposition: Home, Self-Care Condition: Stable Prescriptions: New Sertraline HCl 50 mg [Zoloft 50 mg Tablet] 50 mg PO DAILY #30 tab Continue Gabapentin 300 mg PO TID Diclofenac Sodium 75 mg PO BID Tamsulosin HCl 0.4 mg [Flomax 0.4 MG] 0.4 mg PO QPM Albuterol 8 gm Mdi Hfa [Ventolin Hfa MDI] 90 mcg IH Q4-6HPRN PRN PRN Reason: Shortness Of Breath Losartan Potassium 50 mg [Cozaar 50 MG] 50 mg PO HS Cyclobenzaprine HCl 10 mg [Cyclobenzaprine 10 MG] 10 mg PO TID Carvedilol 3.125 mg [Coreg 3.125 MG] 3.125 mg PO HS Bupropion HCl 150 mg Sr [Wellbutrin SR 150 MG] 150 mg PO BID Budesonide/Formoterol Fumarate [Symbicort 160-4.5 Mcg Inhaler] 6 gm IH DAILY Fluticasone Propionate [24 Hour Allergy Relief] 1 spray INTRANASAL HS Ergocalciferol (Vitamin D2) [Vitamin D2] 1.25 mg PO WEEKLY Atorvastatin Calcium 80 mg PO HS Albuterol 2.5 mg/3 ml Neb [Proventil 2.5 mg/3 ml Neb] 1 inh Q4H PRN PRN PRN Reason: Shortness Of Breath Discontinued Sertraline HCl 100 mg PO DAILY Follow up with: VAISHALI CHAMBERS [Primary Care Provider] -
[2021-05-23] MEDS ORDERED: ZOLOFT 50 MG TABLET PO SCH (10:00)
--- NOTE | 2021-05-23 10:21 | PCM.DS ---
Discharge Summary Date of Admission: 05/21/21 16:45 Admitting Physician: KENRICK FELIPE Primary Care Provider: VAISHALI CHAMBERS Allergies Allergies No Known Drug Allergies Allergy (Verified 05/04/19 15:50) Hospital Summary - Vitals & Intake/Output Vital Signs: Vital Signs Temperature 98.0 F 05/23/21 08:00 Pulse Rate 82 05/23/21 08:00 Respiratory Rate 20 05/23/21 09:52 Blood Pressure 166/89 05/23/21 08:00 O2 Sat by Pulse Oximetry 94 L 05/23/21 08:00 Intake & Output: Intake & Output 05/20/21 05/21/21 05/22/21 05/23/21 11:59 11:59 11:59 11:59 Intake Total 3412 4279 Output Total 2610 3000 Balance 802 1279 Weight 84.822 kg 78.2 kg - Lab Result Diagrams: 05/23/21 05:35 05/23/21 05:35 Lab Results-Last 24 Hrs: Lab Results-Last 24 Hours 05/22/21 05/22/21 05/22/21 Range/Units 05:55 05:55 12:00 WBC (4.0-10.5) K/mm3 RBC (4.1-5.6) M/mm3 Hgb (12.5-18.0) gm/dl Hct (42-50) % MCV (78-100) fl MCH (26-32) pg MCHC (32-36) g/dl RDW (11.5-14.0) % Plt Count (150-450) K/mm3 MPV (7.5-11.0) fl Sodium (137-145) mmol/L Potassium (3.5-5.1) mmol/L Chloride (98-107) mmol/L Carbon Dioxide (22-30) mmol/L Anion Gap (5-15) MEQ/L BUN (9-20) mg/dL Creatinine (0.66-1.25) mg/dL Estimated GFR ML/MIN Glucose (74-106) mg/dL Calcium (8.4-10.2) mg/dL Total Bilirubin (0.2-1.3) mg/dL AST (17-59) U/L ALT (0-50) U/L Alkaline Phosphatase (38-126) U/L Serum Total Protein (6.3-8.2) g/dL Albumin (3.5-5.0) g/dL Free T4 1.43 (0.76-1.46) ng/dL TSH 3rd Generation 0.646 (0.47-4.68) mIU/L Stool Occult Blood NEGATIVE (NEGATIVE) Stl C. cayetanensis PCR (NEGATIVE) Stl Adenov F 40/41 PCR (NEGATIVE) Stool Astrovirus (PCR) (NEGATIVE) Stool Cryptosporidium PCR (NEGATIVE) Stool E coli O157 PCR (NEGATIVE) Stool EPEC (PCR) (NEGATIVE) Stool EAEC (PCR) (NEGATIVE) Stl E. histolytica PCR (NEGATIVE) Stl P. shigelloides PCR (NEGATIVE) Stool Sapovirus (PCR) (NEGATIVE) St Y.enterocolitica PCR (NEGATIVE) Stool Vibrio (PCR) (NEGATIVE) Stl Vibrio cholerae PCR (NEGATIVE) Stl Norovirus GI/GII PCR (NEGATIVE) Campylobacter (PCR) (NEGATIVE) C. difficile (PCR) (NEGATIVE) Enterotoxigenic E. coli (NEGATIVE) E.coli Shiga Toxins (NEGATIVE) Giardia lamblia (NEGATIVE) Rotavirus A (PCR) (NEGATIVE) Salmonella (PCR) (NEGATIVE) Shigella (PCR) (NEGATIVE) 05/22/21 05/23/21 05/23/21 Range/Units 12:00 05:35 05:35 WBC 8.0 (4.0-10.5) K/mm3 RBC 4.23 (4.1-5.6) M/mm3 Hgb 12.5 (12.5-18.0) gm/dl Hct 38.4 L (42-50) % MCV 90.8 (78-100) fl MCH 29.6 (26-32) pg MCHC 32.6 (32-36) g/dl RDW 14.5 H (11.5-14.0) % Plt Count 302 (150-450) K/mm3 MPV 9.1 (7.5-11.0) fl Sodium 143 (137-145) mmol/L Potassium 3.7 (3.5-5.1) mmol/L Chloride 112 H (98-107) mmol/L Carbon Dioxide 24 (22-30) mmol/L Anion Gap 11.1 (5-15) MEQ/L BUN 8 L (9-20) mg/dL Creatinine 0.68 (0.66-1.25) mg/dL Estimated GFR > 60.0 ML/MIN Glucose 83 (74-106) mg/dL Calcium 8.2 L (8.4-10.2) mg/dL Total Bilirubin 0.30 (0.2-1.3) mg/dL AST 16 L (17-59) U/L ALT 12 (0-50) U/L Alkaline Phosphatase 54 (38-126) U/L Serum Total Protein 5.7 L (6.3-8.2) g/dL Albumin 3.3 L (3.5-5.0) g/dL Free T4 (0.76-1.46) ng/dL TSH 3rd Generation (0.47-4.68) mIU/L Stool Occult Blood (NEGATIVE) Stl C. cayetanensis PCR NEGATIVE (NEGATIVE) Stl Adenov F 40/41 PCR NEGATIVE (NEGATIVE) Stool Astrovirus (PCR) NEGATIVE (NEGATIVE) Stool Cryptosporidium PCR NEGATIVE (NEGATIVE) Stool E coli O157 PCR NEGATIVE (NEGATIVE) Stool EPEC (PCR) NEGATIVE (NEGATIVE) Stool EAEC (PCR) NEGATIVE (NEGATIVE) Stl E. histolytica PCR NEGATIVE (NEGATIVE) Stl P. shigelloides PCR NEGATIVE (NEGATIVE) Stool Sapovirus (PCR) NEGATIVE (NEGATIVE) St Y.enterocolitica PCR NEGATIVE (NEGATIVE) Stool Vibrio (PCR) NEGATIVE (NEGATIVE) Stl Vibrio cholerae PCR NEGATIVE (NEGATIVE) Stl Norovirus GI/GII PCR NEGATIVE (NEGATIVE) Campylobacter (PCR) NEGATIVE (NEGATIVE) C. difficile (PCR) NEGATIVE (NEGATIVE) Enterotoxigenic E. coli NEGATIVE (NEGATIVE) E.coli Shiga Toxins NEGATIVE (NEGATIVE) Giardia lamblia NEGATIVE (NEGATIVE) Rotavirus A (PCR) NEGATIVE (NEGATIVE) Salmonella (PCR) NEGATIVE (NEGATIVE) Shigella (PCR) NEGATIVE (NEGATIVE) - Radiology Exams Ordered Rad Exams-Entire Visit: Radiology Procedures Category Date Time Status ABDOMEN AND PELVIS W/0 CONTRAS [CT] Urgent Exams 05/21/21 19:08 Completed ABDOMINAL-LIMITED [US] Urgent Exams 05/22/21 Ordered CHEST 1 VIEW (PORTABLE) Stat Exams 05/21/21 13:46 Completed HEAD WITHOUT CONTRAST [CT] Stat Exams 05/21/21 12:01 Completed LUMBAR SPINE W/O [CT] Stat Exams 05/21/21 12:02 Completed THORACIC SPINE W/O CONTRAST [CT] Stat Exams 05/21/21 12:02 Completed - Procedures and Test Procedures and Tests throughout Hospitalization: Therapy Orders & Screens 05/22/21 08:29 Respiratory Therapy Assessment DAILY Comment: Diagnosis: Dehydration Final Diagnosis/Problem List - Final Discharge Diagnosis/Problem (1) Dehydration Current Visit: Yes Status: Acute Code(s): E86.0 - DEHYDRATION (2) Diarrhea Current Visit: Yes Status: Chronic Code(s): R19.7 - DIARRHEA, UNSPECIFIED (3) Back pain Current Visit: Yes Status: Chronic Code(s): M54.9 - DORSALGIA, UNSPECIFIED (4) Fall Current Visit: Yes Status: Resolved Code(s): W19.XXXA - UNSPECIFIED FALL, INITIAL ENCOUNTER - Discharge Disposition: Home, Self-Care Condition: Stable Prescriptions: New Sertraline HCl 50 mg [Zoloft 50 mg Tablet] 50 mg PO DAILY #30 tab Continue Gabapentin 300 mg PO TID Diclofenac Sodium 75 mg PO BID Tamsulosin HCl 0.4 mg [Flomax 0.4 MG] 0.4 mg PO QPM Albuterol 8 gm Mdi Hfa [Ventolin Hfa MDI] 90 mcg IH Q4-6HPRN PRN PRN Reason: Shortness Of Breath Losartan Potassium 50 mg [Cozaar 50 MG] 50 mg PO HS Cyclobenzaprine HCl 10 mg [Cyclobenzaprine 10 MG] 10 mg PO TID Carvedilol 3.125 mg [Coreg 3.125 MG] 3.125 mg PO HS Bupropion HCl 150 mg Sr [Wellbutrin SR 150 MG] 150 mg PO BID Budesonide/Formoterol Fumarate [Symbicort 160-4.5 Mcg Inhaler] 6 gm IH DAILY Fluticasone Propionate [24 Hour Allergy Relief] 1 spray INTRANASAL HS Ergocalciferol (Vitamin D2) [Vitamin D2] 1.25 mg PO WEEKLY Atorvastatin Calcium 80 mg PO HS Albuterol 2.5 mg/3 ml Neb [Proventil 2.5 mg/3 ml Neb] 1 inh Q4H PRN PRN PRN Reason: Shortness Of Breath Discontinued Sertraline HCl 100 mg PO DAILY Instructions: Syncope (Fainting), Dehydration, Adult (DC), Ack[place] Diet, Preventing Falls Follow up with: VAISHALI CHAMBERS [Primary Care Provider] - Forms: Discharge Instructions
[2021-05-25] MEDS ORDERED: VITAMIN D2 PO SCH (08:00)
== END 2021-05-23 11:40 | disposition home or self-care (01) ==
LOC: ED 11:25 → MED SURG 16:45
PROVIDERS: ADMIT Family Medicine; ATTEND Family Medicine
DX: E86.0 Dehydration (principal); R11.2 Nausea with vomiting, unspecified; R19.7 Diarrhea, unspecified; R07.9 Chest pain, unspecified; R55 Syncope and collapse; Z79.899 Other long term (current) drug therapy; I10 Essential (primary) hypertension; E78.00 Pure hypercholesterolemia, unspecified; J44.9 Chronic obstructive pulmonary disease, unspecified; M54.9 Dorsalgia, unspecified; W19.XXXA Unspecified fall, initial encounter; Z20.828 Contact with and (suspected) exposure to other viral communicable diseases
CPT/HCPCS: 0097U; 36000; 36415; 70450; 71045; 72128; 72131; 74176; 80053; 80307; 81001; 82150; 83690; 84439; 84443; 84484; 85025; 85027; 85379; 85610; 85730; 93005; 94640; 94760; 96360; 99285; G0328; G0378; G0480; U0003; 82274; A9270-GY

== ENCOUNTER 2021-07-26 10:46 | Day surgery (SDC) | payer OTHER ==
--- NOTE | 2021-07-26 08:17 | HP ---
DATE OF SURGERY: 07/26/2021 HISTORY OF PRESENT ILLNESS: The patient is a 60 year-old had back pain, some worse with fried food, noted to have gallstone on work up, chronic loose stools. He has some degenerative disc disease. He denies any prior abdominal surgeries. He had an ultrasound show cholelithiasis, borderline wall thickening. PAST MEDICAL HISTORY: Degenerative disc disease in the back. Chronic obstructive pulmonary disease. PAST SURGICAL HISTORY: Back surgery. Wrist surgery. MEDICATIONS: Albuterol sulfa inhaler nebulizer, atorvastatin, budesonide, bupropion, carvedilol, cyclobenzaprine, diclofenac, Ergocalciferol, fluoxetine, fluticasone, gabapentin, Losartan, nitroglycerin, Protonix, tamsulosin. ALLERGIES: NKDA. FAMILY HISTORY: Heart disease, hypertension, lung disease, chronic obstructive pulmonary disease. SOCIAL HISTORY: Half pack per day smoker, denies alcohol abuse. REVIEW OF SYSTEMS: Fourteen systems reviewed pertinent for multiple medical problems noted above. No chest pain or palpitations. Other systems negative or noncontributory as above and per preadmission questionnaire. PHYSICAL EXAMINATION: GENERAL: A chronically ill gentleman in no acute distress. HEENT: Sclerae nonicteric. NECK: No JVD. CHEST: Equal excursion, nonlabored breathing. Breath sounds symmetrical. CVS: Regular rate and rhythm. ABDOMEN: Soft. No peritoneal signs. EXTREMITIES: No cyanosis. NEURO: Alert, moving extremities symmetrically. PSYCH: Appropriate mood and affect. IMPRESSION: Acute exacerbation of chronic cholecystitis, symptomatic cholelithiasis. I feel the patient will benefit from cholecystectomy. Risks and benefits explained in detail including but not limited to bleeding or infection, risk of trocar injury or hernia, risk of bowel, bladder or blood vessel injury, risk of bile leak, bile duct injury, retained stone or sludge possibly requiring further procedure either open or ERCP, general risk of anesthesia, deep venous thrombosis, pulmonary embolism, pneumonia, perioperative risk of aches, pains, bloating, constipation and/or loose stools possibly even chronic in nature, possibility this procedure may not improve his symptoms, he may need further work up, endoscopy, other studies or procedures. He understands and agrees to the planned procedure, will proceed with laparoscopic cholecystectomy with possible open as an outpatient.
[~2021-07-26 10:46] MED LIST: Lactated Ringers 1,000 ML IV ONE; Lactated Ringers 1,000 ML IV SCH; MEFOXIN 2 GM PREMIX** 2 GM/50 ML ML IV SCH; Sensorcaine 0.25% 10 ML ONE
[2021-07-26] MEDS ORDERED: Lactated Ringers 1,000 ML IV ONE ×2 (10:47→13:47)
[2021-07-26] MEDS ORDERED: MEFOXIN 2 GM PREMIX** 2 GM/50 ML ML IV ONE (10:47)
[2021-07-26] MEDS ORDERED: Versed 2 MG/2 ML Injection IV ONE (11:31)
[2021-07-26] MEDS ORDERED: PROVENTIL 2.5 MG/3 ML NEB IH ONE ×2 (11:33→12:04)
[2021-07-26] MEDS ORDERED: Decadron 4 MG INJ ONE (12:40)
[2021-07-26] MEDS ORDERED: Zofran 4 MG/2 ML VIAL ONE (12:40)
[2021-07-26] MEDS ORDERED: Zemuron 100 MG/10 ML ONE (12:40)
[2021-07-26] MEDS ORDERED: Versed 2 MG/2 ML Injection ONE (12:40)
[2021-07-26] MEDS ORDERED: Xylocaine-Mpf 2% 5 Ml Vial ONE (12:40)
[2021-07-26] MEDS ORDERED: BRIDION 200MG/2ML IV ONE (12:40)
[2021-07-26] MEDS ORDERED: DIPRIVAN 200 MG/20 ML IV ONE (12:40)
[2021-07-26] MEDS ORDERED: SUBLIMAZE 100 MCG/2 ML ONE (12:40)
[2021-07-26] MEDS ORDERED: TORAdol 30 mg Injection ONE (12:40)
[2021-07-26] MEDS ORDERED: Hydromorphone 1 mg/ml Injection ONE (13:35)
[2021-07-26] MEDS ORDERED: NORCO 5/325 MG PO PRN (14:29)
[2021-07-26] MEDS ORDERED: MORPHINE SULFATE 4 MG INJ IV PRN (14:51)
[2021-07-26] MEDS ORDERED: Zofran 4 MG/2 ML VIAL IV PRN (14:52)
[2021-07-26 14:54] VITALS: O2SAT 96
[2021-07-26 14:56] VITALS: BP 149/94; PULSE 86
--- NOTE | 2021-07-27 10:23 | OP ---
SURGERY DATE/TIME: 07/26/2021 1239 PREOPERATIVE DIAGNOSIS: Acute exacerbation of chronic cholecystitis, symptomatic cholelithiasis. POSTOPERATIVE DIAGNOSIS: Acute exacerbation of chronic cholecystitis, symptomatic cholelithiasis. PROCEDURE: Laparoscopic cholecystectomy. SURGEON: Dr. Zoran Escobar. RENTAL SALES AGENT: Ankit Gandhi, Medical Student III. ANESTHESIA: General. ESTIMATED BLOOD LOSS: Minimal. INDICATIONS: As noted above. Risks and benefits explained in detail but not limited to and consent obtained. DESCRIPTION OF PROCEDURE AND FINDINGS: The patient was taken to the operating room. General anesthesia induced. Abdomen prepped and draped in the usual sterile fashion. After official time out and no disagreement with planned procedure, a transverse incision made at the supraumbilical area. Fascia grasped and pulled upward. Veress needle inserted and tested with saline. Pneumoperitoneum accomplished insufflating opening pressure of 0 to 15. A 5 mm bladeless port and camera were inserted without difficulty followed by two - 5 mm right upper quadrant ports and 11 mm epigastric port. The gallbladder grasped. It had some mild chronic inflammatory reaction. Dissecting posterior, lateral to anterior fashion slowly and carefully cystic duct and infundibular area slowly and carefully well skeletonized until the critical view obtained both anteriorly and posteriorly, remaining cystic artery both clipped x3 and divided in usual fashion. After critical view was obtained both anterior and posterior. Gallbladder then continued to be dissected from its dense attachment to the liver bed, clipping additional oozing side branches off of the cystic artery and cystic duct as necessary. Just prior to releasing from final attachments to the anterior edge of the liver, the liver bed re-inspected. Clips noted in place in cystic duct and cystic artery stumps. No sign of any active bleeding or bile leakage. It was felt there was no benefit from drain placement. Gallbladder released from final attachments to anterior edge of the liver, placed in the provided sac per the hospital pulled up and out the epigastrium which was slightly spread. Once the fascia is spread with a clamp allowing the gallbladder and bag to be pulled free and passed off. The fascial defect closed with puncture closure device with #1 Vicryl. Liver bed re-inspected. Good hemostasis noted. Copious amount of irrigation accomplished lateral to the liver and subhepatic space irrigating clear. Pneumoperitoneum decompressed. The wound irrigated out. Skin incision closed with 4-0 Vicryl. Steri-Strips and sterile dressing applied. 0.25% Marcaine local injected along the skin incision fascial defect at the end of the procedure. There were no immediate complications. Findings discussed with the family out in the waiting room. He was transferred to the recovery room in stable condition.
== END 2021-07-26 15:10 | disposition home or self-care (01) ==
LOC: SDC 10:46
PROVIDERS: ATTEND Surgery
DX: K80.00 Calculus of gallbladder with acute cholecystitis without obstruction (principal); J44.9 Chronic obstructive pulmonary disease, unspecified; Z79.899 Other long term (current) drug therapy
CPT/HCPCS: 88304; 94640; J0694; J1100; J1170; J1885; J2250; J2405; J2704; J3010; J7609; A9270-GY

== ENCOUNTER 2022-01-31 08:50 | Day surgery (SDC) | payer OTHER ==
[~2022-01-31 08:50] MED LIST changes: -Lactated Ringers 1,000 ML IV SCH; -MEFOXIN 2 GM PREMIX** 2 GM/50 ML ML IV SCH
--- NOTE | 2022-01-31 09:06 | HP ---
DATE OF SURGERY: 01/31/2022 HISTORY OF PRESENT ILLNESS: The patient is a 61-year-old who has chronic obstructive pulmonary disease and Parkinson's. PAST MEDICAL HISTORY: Chronic obstructive pulmonary disease. Parkinson's. PAST SURGICAL HISTORY: He had cholecystectomy in the past, shoulder surgery, back surgery in the past. MEDICATIONS: Albuterol for chronic lung disease. Gabapentin, diclofenac, bupropion, cyclobenzaprine, tamsulosin, carvedilol, atorvastatin, losartan, sertraline, vitamin D2, fluticasone, generic Symbicort nebulizer treatments, carbidopa/levodopa, vitamin B12. ALLERGIES: NKDA. FAMILY HISTORY: Negative in regards to this problem. SOCIAL HISTORY: Half pack per day smoker. Denies alcohol abuse. REVIEW OF SYSTEMS: Fourteen systems reviewed. No chest pain or palpitations. Pertinent for the chronic illnesses as mentioned above. Aches and pains at the bulge on his upper abdomen. LAB DATA AND TESTS: CT scan showed ventral hernia in the upper abdomen not to mention given his chronic obstructive pulmonary disease and smoking history. PHYSICAL EXAMINATION: GENERAL: A chronically ill gentleman in no acute distress. HEENT: Sclerae nonicteric. NECK: No JVD. CHEST: Equal excursion, nonlabored breathing. CVS: Regular rate and rhythm. ABDOMEN: Soft. He has incarcerated epigastric ventral hernia, incisional area hernia with some preperitoneal fat noted on CT scan. EXTREMITIES: No cyanosis. NEURO: Alert, oriented, moving extremities symmetrically. PSYCH: Appropriate mood and affect. IMPRESSION: Incarcerated ventral incisional hernia. I recommended to the patient repair. Discussed laparoscopic possible open repair with mesh. General risk of bleeding or infection, risk of trocar injury or hernia, risk of bowel, bladder, blood vessel injury, risk of adhesion, scar formation or obstruction. Risk of hernia recurrence, risk of mesh infection possibly requiring removal, risk of hematoma or seroma formation, general risk of aches, pains, burning or numbness possibly longterm or chronic in nature, remote risk of mesh fracture or failure possibly creating issue with the viscera or other structures possibly requiring other procedures, ongoing morbidity but not limited to. He understands. He understands the importance of stopping smoking to reduce the risk of recurrence, aches and pains. Otherwise will proceed with laparoscopic repair of incarcerated ventral incisional hernia with mesh as an outpatient possible open.
[2022-01-31] MEDS ORDERED: Lactated Ringers 1,000 ML IV SCH (09:30)
[2022-01-31] MEDS ORDERED: CEFAZOLIN 2 GM-D5W BAG** 2 GM/50 ML ML IV ONE ×2 (09:30→09:58)
[2022-01-31] MEDS ORDERED: Lactated Ringers 1,000 ML IV ONE (09:58)
[2022-01-31] MEDS ORDERED: Versed 2 MG/2 ML Injection IV ONE (10:15)
[2022-01-31] MEDS ORDERED: TORAdol 30 mg Injection ONE (11:38)
[2022-01-31] MEDS ORDERED: Zofran 4 MG/2 ML VIAL ONE (11:38)
[2022-01-31] MEDS ORDERED: Zemuron 100 MG/10 ML ONE ×3 (11:38→12:49)
[2022-01-31] MEDS ORDERED: DIPRIVAN 200 MG/20 ML IV ONE (11:38)
[2022-01-31] MEDS ORDERED: Decadron 4 MG INJ ONE (11:38)
[2022-01-31] MEDS ORDERED: Xylocaine-Mpf 2% 5 Ml Vial ONE (11:38)
[2022-01-31] MEDS ORDERED: BRIDION 200MG/2ML IV ONE (11:38)
[2022-01-31] MEDS ORDERED: SUBLIMAZE 100 MCG/2 ML ONE ×2 (11:38→13:32)
[2022-01-31] MEDS ORDERED: Ephedrine Sulfate 50 MG/ML ONE (12:15)
[2022-01-31] MEDS ORDERED: TRANDATE 20 MG/4 ML SYRINGE IV ONE (12:22)
[2022-01-31] MEDS ORDERED: Marcaine 0.5%/Epinephrine 10 ML ONE (13:08)
[2022-01-31] MEDS ORDERED: MORPHINE SULFATE 10 MG/ML ONE (13:31)
[2022-01-31] MEDS ORDERED: Hydromorphone 1 mg/ml Injection ONE (13:35)
[2022-01-31] MEDS ORDERED: NORCO 5/325 MG PO PRN (15:05)
[2022-01-31 16:29] VITALS: BP 138/99; PULSE 89; O2SAT 96
[2022-01-31 17:12] LABS: Appearance CLEAR (CLEAR); Bilirubin NEGATIVE (NEGATIVE); Dipstick done @ ? MAIN LAB; Glucose NEGATIVE (NEGATIVE); Ketones NEGATIVE (NEGATIVE); Nitrite NEGATIVE (NEGATIVE); Protein,Urine Dip NEGATIVE (Negative); RBC NEGATIVE Ery/ul (0-5); Specific Gravity 1.015 (1.005-1.025); Urobilinogen 0.2 mg/dL (0-1)
[2022-01-31 17:13] LABS: Mucus SLIGHT /HPF (NEGATIVE)
--- NOTE | 2022-02-01 08:08 | OP ---
SURGERY DATE/TIME: 01/31/2022 1146 PREOPERATIVE DIAGNOSIS: Incarcerated ventral incisional hernia symptomatic in need of repair. POSTOPERATIVE DIAGNOSIS: Incarcerated ventral incisional hernia symptomatic in need of repair. PROCEDURE: Laparoscopic-assisted repair incarcerated ventral incisional hernia with mesh. SURGEON: Dr. Zoran Escobar. ANESTHESIA: General. ESTIMATED BLOOD LOSS: Minimal. INDICATIONS: As noted above. Risks and benefits explained in detail and not limited to and consent obtained. The site is confirmed with the patient in the preoperative holding area. DESCRIPTION OF PROCEDURE AND FINDINGS: He is taken to the operating room. General anesthesia induced. Abdomen prepped and draped in usual sterile fashion. After official time out and no disagreement with planned procedure, a transverse incision made in the left upper quadrant. Veress needle inserted and did not test with saline very well and elected to go with the infraumbilical area. Fascia grasped and pulled upwards. Veress needle inserted and tested with saline. Pneumoperitoneum accomplished opening pressure 0 to 15. A 5 mm bladeless port and camera inserted without difficulty carefully inspecting up in the left upper quadrant. There is no evidence of any intra-abdominal injury secondary to initial Veress needle placement. A 5 mm port is placed in this position as well. There was another left mid abdomen 5 mm port on direction vision with the camera. With a combination of LigaSure and blunt dissectors, the preperitoneal space carefully entered mobilizing the fat in the falciform area downward up to the point of the epigastrium, partial ventral incisional hernia this is done and a moderate amount of fat is carefully reduced out of this hernia slowly and carefully. Once the margins are clear circumferentially the fascia is closed in all directions to allow for adequate mesh override to reduce the risk of recurrence. Once this was accomplished small incision is made up above the defect and using #1 Vicryl suture passer transfascial sutures were placed and tied prior to placement of mesh. These were temporarily tagged. Once this was done it should be noted the site had been marked and measured. It was felt the size [address] mesh most appropriate sized mesh. This mesh is carefully marked in four quadrants with some 0 Ethibond sutures to tie transfascially as well as 0 Vicryl placed centrally to center the mesh. After placing 12 port through the defect, the mesh was carefully wet and then rolled and easily passed in intra-abdominally. The transfascial #1 Vicryl sutures closed the fascia back to the midline of the defect with the suture passer centering 0 Vicryl on the mesh centering the mesh. The four quadrant 0 Ethibond is then pulled up through four stab wounds. The transfascial sutures then tied. It was nice and flat in tension free mass with the pressure having been turned down to 8 prior to doing this. At this point Capture Tacker was used about 1 cm around the periphery lying nice and flat in a tension free manner. The patient tolerated the procedure well. Pneumoperitoneum decompressed. Subcu closed with 3-0 Vicryl. Skin closed with 4-0 Vicryl. The stab wounds were closed with Steri-Strips. 0.25% Marcaine local had been injected along the skin incision. Anesthesia applied tap blocks. The patient tolerated the procedure well. He is to receive sterile dressing and abdominal binder. He is to avoid heavy lifting, pushing, pulling for eight weeks perioperatively and avoid smoking. Findings discussed with the family out in the waiting area. He was transferred to the recovery room in stable condition.
== END 2022-01-31 16:45 | disposition home or self-care (01) ==
LOC: SDC 08:50
PROVIDERS: ATTEND Surgery
DX: K43.2 Incisional hernia without obstruction or gangrene (principal)
CPT/HCPCS: 49655; 64488; 76937; 76942; 81001; 87086; 93005; C1781; J0690; J1100; J1170; J1885; J2250; J2270; J2405; J2704; J3010; L0625; A9270-GY

== ENCOUNTER 2022-07-06 16:19 | Emergency (ER) | payer OTHER ==
--- NOTE | 2022-07-06 16:25 | ERPHSYRPT ---
- History of Present Illness Time Seen by Provider: 07/06/22 16:25 Source: patient Exam Limitations: no limitations Physician History: This is a 61-year-old white male patient of nurse practitioner Aysha Barrera who has chronic right hip pain. However it has been worsening over several days. Patient did see Aysha Barrera nurse practitioner approximately 2 weeks ago but failed to mention that he has been having worsening right hip pain. Patient had been using physical therapy to help with his pain issues. However physical therapy insurance ran out 9 to 10 months ago. He states he has been "just dealing with the pain". Patient had no acute fall or trauma to the right hip. Method of Injury: other (No acute fall or acute trauma) Occurred: other (Chronic but worsening) Quality: aching Lower Extremities Pain: hip: right Modifying Factors: Improves With: movement Associated Symptoms: other (Can bear weight but hurts to do so.) Allergies/Adverse Reactions: No Known Drug Allergies Allergy (Verified 07/06/22 16:43) Home Medications: Diclofenac Sodium 75 mg PO BID 05/04/19 [History] Gabapentin 300 mg PO TID 05/04/19 [History] Albuterol 8 gm Mdi Hfa [Ventolin Hfa MDI] 90 mcg IH Q4-6HPRN PRN 10/21/19 [History] Tamsulosin HCl 0.4 mg [Flomax 0.4 MG] 0.4 mg PO QPM 10/21/19 [History] Albuterol 2.5 mg/3 ml Neb [Proventil 2.5 mg/3 ml Neb] 1 inh IH Q4H PRN PRN 05/21/21 [History] Atorvastatin Calcium 80 mg PO HS 05/21/21 [History] Budesonide/Formoterol Fumarate [Symbicort 160-4.5 Mcg Inhaler] 6 gm IH DAILY 05/21/21 [History] Bupropion HCl 150 mg Sr [Wellbutrin SR 150 MG] 150 mg PO BID 05/21/21 [History] Carvedilol 3.125 mg [Coreg 3.125 MG] 3.125 mg PO BID 05/21/21 [History] Cyclobenzaprine HCl 10 mg [Cyclobenzaprine 10 MG] 10 mg PO TID 05/21/21 [History] Ergocalciferol (Vitamin D2) [Vitamin D2] 1.25 mg PO WEEKLY 05/21/21 [History] Fluticasone Propionate [24 Hour Allergy Relief] 1 spray INTRANASAL HS 05/21/21 [History] Losartan Potassium 50 mg [Cozaar 50 MG] 50 mg PO HS 05/21/21 [History] Sertraline HCl 50 mg [Zoloft 50 mg Tablet] 100 mg PO BID 07/14/21 [History] Carbidopa/Levodopa [Carbidopa-Levo 25-100 mg Odt] 1 each PO BID 01/27/22 [History] Cyanocobalamin (Vitamin B-12) [Vitamin B-12] 1,500 mcg PO DAILY 01/27/22 [History] Dicyclomine HCl 20 mg PO TID 07/06/22 [History] Hx Tetanus, Diphtheria Vaccination/Date Given: Yes Hx Influenza Vaccination/Date Given: No Hx Pneumococcal Vaccination/Date Given: No Travel Risk - International Travel Have you traveled outside of the country in past 3 weeks: No - Coronavirus Screening Are you exhibiting any of the following symptoms?: No Close contact with a COVID-19 positive Pt in past 14-21 Days: No - Vaccine Status Have you recieved a Covid-19 vaccination: No - Review of Systems Constitutional: No Symptoms Eyes: No Symptoms Ears, Nose, & Throat: No Symptoms Respiratory: No Symptoms Cardiac: No Symptoms Abdominal/Gastrointestinal: No Symptoms Genitourinary Symptoms: No Symptoms Musculoskeletal: Other (Right hip pain) Skin: No Symptoms Neurological: No Symptoms Psychological: No Symptoms Endocrine: No Symptoms Hematologic/Lymphatic: No Symptoms Immunological/Allergic: No Symptoms All Other Systems: Reviewed and Negative - Past Medical History Pertinent Past Medical History: Yes Neurological History: Other ENT History: No Pertinent History Cardiac History: Angina, Arrhythmia, Coronary Artery Disease, High Cholesterol, Hypertension, Myocardial Infarction ([place]) Respiratory History: COPD, Emphysema Endocrine Medical History: No Pertinent History Musculoskeletal History: Osteoarthritis GI Medical History: No Pertinent History History: No Pertinent History Psycho-Social History: Anxiety, Depression Male Reproductive Disorders: No Pertinent History Other Medical History: Carpal tunnel surgery on the R hand. 4 surgeries on R shoulder, section of R clavical removed, lumbar spine surgery. Recent Parkinson's diagnosis - Past Surgical History Past Surgical History: Yes Neuro Surgical History: No Pertinent History Cardiac: Cardiac Catheterization Respiratory: No Pertinent History Gastrointestinal: Cholecystectomy Genitourinary: No Pertinent History Musculoskeletal: Orthopedic Surgery Male Surgical History: No Pertinent History Other Surgical History: right shoulder surgeries. states "took half my collar bone out",rotator cuff right side ,carpal tunnel right wrist,section of right clavicle removed r/t being at age 29, surgery to back 04/2019 states "took out a piece of ruptured vertebrae" - Social History Smoking Status: Current every day smoker How long have you smoked: 45 Exposure to second hand smoke: Yes Alcohol Use: Socially Drug Use: marijuana, methamphetamines Patient Lives Alone: No Significant Family History: no pertinent family hx - Nursing Vital Signs Nursing Vital Signs: Initial Vital Signs Temperature 97.2 F 07/06/22 16:30 Pulse Rate 94 H 07/06/22 16:30 Blood Pressure 134/104 07/06/22 16:30 O2 Sat by Pulse Oximetry 99 07/06/22 16:30 Pain Scale Pain Intensity 8 - Physical Exam General Appearance: no apparent distress, alert, anxiety Eyes, Ears, Nose, Throat Exam: normal ENT inspection, moist mucous membranes Neck Exam: normal inspection, non-tender, supple, full range of motion Cardiovascular/Respiratory Exam: chest non-tender, no respiratory distress Gastrointestinal/Abdominal Exam: non-tender Back Exam: normal inspection, normal range of motion, No CVA tenderness, No vertebral tenderness Hips Exam: right: limited range of motion, soft tissue tenderness, left: non- tender, normal range of motion, bilateral: normal inspection, no evidence of injury Legs Exam: bilateral leg: non-tender, normal inspection, normal range of motion, no evidence of injury Knees Exam: bilateral knee: non-tender, normal inspection, normal range of motion, no evidence of injury Ankle Exam: bilateral ankle: non-tender, normal inspection, normal range of motion, no evidence of injury Foot Exam: bilateral foot: non-tender, normal inspection, normal range of motion, no evidence of injury Neuro/Tendon Exam: normal sensation, normal motor functions, normal tendon functions, responds to pain, no evidence tendon injury Mental Status Exam: alert, oriented x 3, cooperative Skin Exam: normal color, warm, dry SpO2 Interpretation: normal O2 Delivery: Room Air Ordered Tests: Medication Summary Discontinued Medications Generic Name Dose Route Start Last Admin Trade Name Brett PRN Reason Stop Dose Admin Hydromorphone HCl 0.5 mg 07/06/22 16:55 Hydromorphone 1 Mg/1ml Inj 1 Mg/Ml Syringe IM 07/06/22 16:56 STAT ONE Ondansetron HCl 4 mg 07/06/22 16:56 Zofran 4 Mg/Udtablet Orally Disintegrating PO 07/06/22 16:57 STAT ONE Orphenadrine Citrate 60 mg 07/06/22 16:56 Orphenadrine Citrate 60 Mg/2 Ml Vial IM 07/06/22 16:57 STAT ONE - Progress Progress: improved, pain not gone completely Counseled pt/family regarding: diagnosis, need for follow-up - Departure Departure Disposition: Home Clinical Impression: Chronic right hip pain Condition: Stable Critical Care Time: No Referrals: VAISHALI BARRERA NP [Primary Care Provider] - Follow up/PCP as directed Additional Instructions: Stop your diclofenac and cyclobenzaprine medication while taking your prednisone and orphenadrine medication. May restart them once you have completed the prednisone and orphenadrine. Call Aysha Barrera nurse practitioner tomorrow to make arrangements for follow-up appointment for further evaluation and management of your chronic hip pain Prescriptions: Prednisone 10 mg [Deltasone 10 mg] 10 mg PO TID #12 tablet Orphenadrine Citrate 100 mg [Norflex 100 MG Tablet] 100 mg PO BID #10 tab
[2022-07-06] MEDS ORDERED: Norflex 60 MG/2 ML ONE (17:06)
[2022-07-06] MEDS ORDERED: ZOFRAN ODT 4 MG ONE (17:06)
[2022-07-06] MEDS ORDERED: Hydromorphone 1 mg/ml Injection ONE (17:07)
[2022-07-06] MEDS: Norflex 60 MG/2 ML IM ONE (17:09)
[2022-07-06] MEDS: Hydromorphone 1 mg/ml Injection IM ONE (17:10)
[2022-07-06] MEDS: ZOFRAN ODT 4 MG PO ONE (17:11)
[2022-07-06 17:31] VITALS: BP 137/93; PULSE 88; O2SAT 96
== END 2022-07-06 17:31 | disposition home or self-care (01) ==
LOC: ED 16:19
DX: G89.29 Other chronic pain (principal); M25.551 Pain in right hip; E78.5 Hyperlipidemia, unspecified; I10 Essential (primary) hypertension; J43.9 Emphysema, unspecified; Z72.0 Tobacco use; Z79.52 Long term (current) use of systemic steroids; Z79.899 Other long term (current) drug therapy; Z28.310 Unvaccinated for COVID-19
CPT/HCPCS: 96372; 99283; J1170; J2360; Q0162

== ENCOUNTER 2022-07-08 13:56 | Emergency (ER) | payer OTHER ==
[2022-07-08 14:11] VITALS: O2SAT 98
[2022-07-08] MEDS ORDERED: Norflex 60 MG/2 ML IM ONE (14:24)
[2022-07-08] MEDS ORDERED: MORPHINE SULFATE 4 MG INJ IM ONE (14:24)
[2022-07-08] MEDS ORDERED: MORPHINE SULFATE 4 MG INJ ONE (14:42)
[2022-07-08] MEDS ORDERED: Norflex 60 MG/2 ML ONE (14:42)
--- NOTE | 2022-07-08 16:57 | ERPHSYRPT ---
- History of Present Illness Time Seen by Provider: 07/08/22 13:59 Source: patient Exam Limitations: no limitations Patient Subjective Stated Complaint: "all of my right leg hurts for past week, mostly in back of thigh" Triage Nursing Assessment: C/o right leg pain mostly in back of right thigh ? cause. H/o parkinson's, h/o falls. Denies known injury related to leg pain, Took lortab this am from a friend with no pain relief. Physician History: 61-year-old male with history of chronic right hip/thigh pain who was in physical therapy because of some muscle weakness, atrophy and could not continue because of insurance issues and is having worsening pain sharp shooting severe right posterior thigh/hip area with minimal movements and no significant relieving factors. No numbness tingling or weakness of right lower extremity. Denies any fall or trauma. She is worried about having a blood clot. While palpable posterior tibial and dorsalis pedis. Timing/Duration: week(s), constant, gradual onset, worse Severity: moderate, severe Modifying Factors: Worsens With: movement Associated Symptoms: denies symptoms Allergies/Adverse Reactions: No Known Drug Allergies Allergy (Verified 07/06/22 16:43) Home Medications: Diclofenac Sodium 75 mg PO BID 05/04/19 [History] Gabapentin 300 mg PO TID 05/04/19 [History] Albuterol 8 gm Mdi Hfa [Ventolin Hfa MDI] 90 mcg IH Q4-6HPRN PRN 10/21/19 [History] Tamsulosin HCl 0.4 mg [Flomax 0.4 MG] 0.4 mg PO QPM 10/21/19 [History] Albuterol 2.5 mg/3 ml Neb [Proventil 2.5 mg/3 ml Neb] 1 inh IH Q4H PRN PRN 05/21/21 [History] Atorvastatin Calcium 80 mg PO HS 05/21/21 [History] Budesonide/Formoterol Fumarate [Symbicort 160-4.5 Mcg Inhaler] 6 gm IH DAILY 05/21/21 [History] Bupropion HCl 150 mg Sr [Wellbutrin SR 150 MG] 150 mg PO BID 05/21/21 [History] Carvedilol 3.125 mg [Coreg 3.125 MG] 3.125 mg PO BID 05/21/21 [History] Cyclobenzaprine HCl 10 mg [Cyclobenzaprine 10 MG] 10 mg PO TID 05/21/21 [History] Ergocalciferol (Vitamin D2) [Vitamin D2] 1.25 mg PO WEEKLY 05/21/21 [History] Fluticasone Propionate [24 Hour Allergy Relief] 1 spray INTRANASAL HS 05/21/21 [History] Losartan Potassium 50 mg [Cozaar 50 MG] 50 mg PO HS 05/21/21 [History] Sertraline HCl 50 mg [Zoloft 50 mg Tablet] 100 mg PO BID 07/14/21 [History] Carbidopa/Levodopa [Carbidopa-Levo 25-100 mg Odt] 1 each PO BID 01/27/22 [History] Cyanocobalamin (Vitamin B-12) [Vitamin B-12] 1,500 mcg PO DAILY 01/27/22 [History] Dicyclomine HCl 20 mg PO TID 07/06/22 [History] Hx Tetanus, Diphtheria Vaccination/Date Given: Yes Hx Influenza Vaccination/Date Given: No Hx Pneumococcal Vaccination/Date Given: No Travel Risk - International Travel Have you traveled outside of the country in past 3 weeks: No - Coronavirus Screening Are you exhibiting any of the following symptoms?: No Close contact with a COVID-19 positive Pt in past 14-21 Days: No - Vaccine Status Have you recieved a Covid-19 vaccination: Yes Procedures Rn: [employer] - Vaccination Dates Date of 2cond Vaccination (if applicable): 2020 - Review of Systems Constitutional: No Symptoms Ears, Nose, & Throat: No Symptoms Respiratory: No Symptoms Cardiac: No Symptoms Abdominal/Gastrointestinal: No Symptoms Genitourinary Symptoms: No Symptoms Musculoskeletal: Myalgias Skin: No Symptoms Neurological: No Symptoms Psychological: No Symptoms Endocrine: No Symptoms Hematologic/Lymphatic: No Symptoms - Past Medical History Pertinent Past Medical History: Yes Neurological History: Other ENT History: No Pertinent History Cardiac History: Angina, Arrhythmia, Coronary Artery Disease, High Cholesterol, Hypertension, Myocardial Infarction ([place]) Respiratory History: COPD, Emphysema Endocrine Medical History: No Pertinent History Musculoskeletal History: Osteoarthritis GI Medical History: No Pertinent History History: No Pertinent History Psycho-Social History: Anxiety, Depression Male Reproductive Disorders: No Pertinent History Other Medical History: Carpal tunnel surgery on the R hand. 4 surgeries on R shoulder, section of R clavical removed, lumbar spine surgery. Recent Parkinson's diagnosis - Past Surgical History Past Surgical History: Yes Neuro Surgical History: No Pertinent History Cardiac: Cardiac Catheterization Respiratory: No Pertinent History Gastrointestinal: Cholecystectomy Genitourinary: No Pertinent History Musculoskeletal: Orthopedic Surgery Male Surgical History: No Pertinent History Other Surgical History: right shoulder surgeries. states "took half my collar bone out",rotator cuff right side ,carpal tunnel right wrist,section of right clavicle removed r/t being at age 29, surgery to back 04/2019 states "took out a piece of ruptured vertebrae" - Social History Smoking Status: Current every day smoker How long have you smoked: 45 Exposure to second hand smoke: Yes Alcohol Use: Socially Drug Use: marijuana, methamphetamines Patient Lives Alone: No Significant Family History: no pertinent family hx - Nursing Vital Signs Nursing Vital Signs: Initial Vital Signs Temperature 98.5 F 07/08/22 14:01 Pulse Rate 70 07/08/22 14:01 Respiratory Rate 24 07/08/22 14:01 Blood Pressure 146/96 07/08/22 14:01 O2 Sat by Pulse Oximetry 98 07/08/22 14:01 Pain Scale Pain Intensity 10 - Physical Exam General Appearance: no apparent distress, alert Eye Exam: PERRL/EOMI Ears, Nose, Throat Exam: normal ENT inspection Neck Exam: normal inspection Respiratory Exam: normal breath sounds, lungs clear Cardiovascular Exam: regular rate/rhythm, normal heart sounds Gastrointestinal/Abdomen Exam: soft, normal bowel sounds, No tenderness Back Exam: normal inspection, normal range of motion Extremity Exam: normal inspection, normal range of motion, pelvis stable, tender ness (Posterior thigh with no obvious swelling redness. No bony tenderness.), other Neurologic Exam: alert, oriented x 3, cooperative, sensation nml, No motor deficits Skin Exam: normal color SpO2 Interpretation: normal SpO2: 98 O2 Delivery: Room Air Ordered Tests: Active Orders 24 hr Category Date Time Status Ultrasound Unilateral Extremities [VENOUS UNILAT/ Exams 07/08/22 16:26 Taken LIMITED EXTREMIT] [US] Stat Medication Summary Discontinued Medications Generic Name Dose Route Start Last Admin Trade Name Freq PRN Reason Stop Dose Admin Morphine Sulfate 4 mg 07/08/22 14:24 07/08/22 14:49 Morphine Sulfate 4 Mg/Ml Injection IM 07/08/22 14:25 4 mg STAT ONE Administration Morphine Sulfate Confirm 07/08/22 14:42 Morphine Sulfate 4 Mg/Ml Injection Administered 07/08/22 14:43 Dose 4 mg .ROUTE .STK-MED ONE Orphenadrine Citrate 60 mg 07/08/22 14:24 07/08/22 14:48 Orphenadrine Citrate 60 Mg/2 Ml Vial IM 07/08/22 14:25 60 mg STAT ONE Administration Orphenadrine Citrate Confirm 07/08/22 14:42 Orphenadrine Citrate 60 Mg/2 Ml Vial Administered 07/08/22 14:43 Dose 60 mg .ROUTE .STK-MED ONE - Progress Progress: improved Progress Note: 07/08/22 16:59 Given symptomatic treatment with morphine and Norflex, reevaluation feeling better. Has good strong pulses with good cap refill. Ultrasound venous duplex is negative for DVT per preliminary report. Recommended continue with Tylenol/ibuprofen and outpatient follow-up. Counseled pt/family regarding: diagnosis, need for follow-up, rad results - Departure Departure Disposition: Home Clinical Impression: Lower extremity pain, posterior Condition: Stable Critical Care Time: No Referrals: VAISHALI CHAMBERS NP [Primary Care Provider] - Follow Up with PCP/3 days Instructions: Muscle Strain Additional Instructions: Take Tylenol/ibuprofen as needed for pain. Continue with muscle relaxants. Follow-up with primary care for reevaluation. Return to ER for any worsening. Prescriptions: Hydrocodone/Acetaminophen [Hydrocodone-Acetamin 7.5-325] 1 each PO Q6HPRN PRN 3 Days #12 tablet MDD 4 PRN Reason: Pain
[2022-07-08 17:01] VITALS: BP 144/95; PULSE 74
--- NOTE | 2022-07-08 22:09 | XRAY ---
Indication: Pain. 2-dimensional sonogram and color Doppler imaging of the major venous vessels of the right leg was performed. Comparison: None No thrombus seen in the examined deep venous vessels of the right leg including greater saphenous vein. Veins demonstrate normal compressibility. Venous waveforms are normal with and without augmentation. Impression: Right leg negative for DVT. Comment: Preliminary report given.
== END 2022-07-08 17:14 | disposition home or self-care (01) ==
LOC: ED 13:56
DX: M79.604 Pain in right leg (principal); E78.5 Hyperlipidemia, unspecified; I10 Essential (primary) hypertension; J43.9 Emphysema, unspecified; Z72.0 Tobacco use; Z79.899 Other long term (current) drug therapy; Z79.891 Long term (current) use of opiate analgesic
CPT/HCPCS: 93971; 96374; 96375; 99283; J2270; J2360

== ENCOUNTER 2022-12-21 13:55 | Day surgery (SDC) | payer OTHER ==
[2022-12-21] MEDS ORDERED: BACIGUENT 30 GM TOP ONE (13:56)
[2022-12-21] MEDS ORDERED: LIDOCAINE HCL 1% 50 MG/5 ML VL PF IJ ONE (13:56)
[2022-12-21] MEDS ORDERED: Lactated Ringers 1,000 ML IV ONE ×2 (15:05→16:51)
[2022-12-21] MEDS ORDERED: DIPRIVAN 200 MG/20 ML IV ONE ×2 (16:15→16:29)
--- NOTE | 2022-12-21 17:21 | XRAY ---
Indication: Spinal cord stimulator trial. Intraoperative fluoroscopy provided for 2 minute 38 seconds. 8 digital spot images submitted for interpretation demonstrates posterior introducer needle tip posterior to T12. Ultimately single epidural stimulator lead inserted terminating mid thoracic level, approximately T6. Correlate with intraoperative findings/report.
--- NOTE | 2022-12-22 08:47 | XRAY ---
Two minutes and 38 seconds of fluoroscopy was used in surgery for a spinal cord stimulator trial.
== END 2022-12-21 17:40 | disposition home or self-care (01) ==
LOC: SDC-PAIN 13:55
PROVIDERS: ATTEND Psychiatry & Neurology Pain Medicine
DX: M96.1 Postlaminectomy syndrome, not elsewhere classified (principal); Z79.899 Other long term (current) drug therapy
CPT/HCPCS: 63650; 72100; 77002; C1778; J2001; J2704; A9270-GY

== ENCOUNTER 2023-12-05 06:17 | Emergency (ER) | payer OTHER ==
[2023-12-05 06:27] VITALS: TEMP 98.4
[2023-12-05 07:13] LABS: Absolute Neutrophil Ct (ANC) 3.62 x10^3/uL (1.4-6.9); BASOPHIL % 0.4 % (0.0-0.4); Basophil (Absolute #) 0.03 x10^3/uL (0-0.4); Eosinophil % 3.1 % (0.00-5.0); Eosinophil (Absolute #) 0.24 x10^3/uL (0-0.5); Hematocrit 47.3 % (42-50); Hemoglobin 15.3 g/dL (12.5-18.0); IMMATURE GRAN # 0.02 x10^3u/L (0.00-0.03); IMMATURE GRAN % 0.3 % (0.00-0.4); Lymphocyte (Absolute #) 3.04 x10^3/uL (1.0-4.6); Lymphocytes % 39.8 % (24.0-44.0); Mean Cell Volume 88.4 fL (78-100); Mean Corpuscular Hemoglobin 28.6 pg (26-32); Mean Corpuscular Hgb Concent. 32.3 g/dL (32-36); Mean Platelet Volume 9.5 fL (7.5-11.0); Monocyte (Absolute #) 0.69 x10^3/uL (0.0-1.3); Neutrophil % 47.4 % (36.0-66.0); Platelet Count 375 x10^3/uL (150-450); Red Blood Count 5.35 x10^6/uL (4.1-5.6); Red Cell Distribution Width 13.5 % (11.5-14.0); White Blood Count 7.6 x10^3/uL (4.0-10.5)
[2023-12-05 07:28] LABS: ALBUMIN 4.7 g/dL (3.5-5.0); ANION GAP 10.9 MEQ/L (5-15); BILIRUBIN,TOTAL 0.7 mg/dL (0.2-1.3); Calcium 9.3 mg/dL (8.4-10.2); Creatinine 1 0.62 mg/dL (0.66-1.25); EST GLOMERULAR FILTRATION RATE 108.7 ML/MIN; Potassium 3.9 mmol/L (3.5-5.1); Total Protein 8.1 g/dL (6.3-8.2)
--- NOTE | 2023-12-05 07:30 | ERPHSYRPT ---
- History of Present Illness Timing/Duration: day(s) (3 days) Severity: moderate Modifying Factors: Improves With: nothing Associated Symptoms: nausea, vomiting, shortness of breath, cough <EDWARD LARA - Last Filed: 12/05/23 13:55> - History of Present Illness Source: patient Exam Limitations: no limitations Patient Subjective Stated Complaint: vomiting and diarrhea x3 days, sob, cough, fatigue Triage Nursing Assessment: pt brought back to ER via wheelchair, fiance at bedside. Pt c/o nausea, vomiting and diarrhea x3 days, sob, cough, fatigue and pain to the lower chest area at the lung region. Lungs clear, heart tones reg. Abd soft with active bs x4 quad, nontender. Pt denies being able to keep anything down for 3 days. Hx Tetanus, Diphtheria Vaccination/Date Given: Yes Hx Influenza Vaccination/Date Given: Yes Hx Pneumococcal Vaccination/Date Given: No Immunizations Up to Date: Yes <DEBBIE GIVENS - Last Filed: 12/08/23 11:03> - History of Present Illness Time Seen by Provider: 12/05/23 07:10 Physician History: 63-year-old male presents to emergency department for evaluation of shortness of breath nausea and vomiting. Patient states symptoms started approximately 3 days ago. Patient has been unable to tolerate p.o. Patient is an active smoker. Cough is dry nonproductive. Symptoms have been progressive. Symptoms are moderate in intensity. No specific worsening or improving factors. Significant other at bedside. They voiced no other complaints or concerns at this time. Portions of this note were created with voice recognition technology. There may be grammatical, spelling, punctuation or sound alike errors (EDWARD LARA) Allergies/Adverse Reactions: No Known Drug Allergies Allergy (Verified 12/05/23 06:39) Home Medications: Diclofenac Sodium 75 mg PO BID 05/04/19 [History] Gabapentin 800 mg PO QID 05/04/19 [History] Albuterol 8 gm Mdi Hfa [Ventolin Hfa MDI] 90 mcg IH Q4-6HPRN PRN 10/21/19 [History] Tamsulosin HCl 0.4 mg [Flomax 0.4 MG] 0.4 mg PO QPM 10/21/19 [History] Albuterol 2.5 mg/3 ml Neb [Proventil 2.5 mg/3 ml Neb] 1 inh IH Q4H PRN PRN 05/21/21 [History] Atorvastatin Calcium 80 mg PO HS 05/21/21 [History] Budesonide/Formoterol Fumarate [Symbicort 160-4.5 Mcg Inhaler] 2 puffs IH BID 05/21/21 [History] Carvedilol 3.125 mg [Coreg 3.125 MG] 3.125 mg PO BID 05/21/21 [History] Cyclobenzaprine HCl 10 mg [Cyclobenzaprine 10 MG] 10 mg PO TID 05/21/21 [History] Ergocalciferol (Vitamin D2) [Vitamin D2] 1.25 mg PO WEEKLY 05/21/21 [History] Fluticasone Propionate [24 Hour Allergy Relief] 1 spray INTRANASAL HS 05/21/21 [History] Losartan Potassium 50 mg [Cozaar 50 MG] 50 mg PO HS 05/21/21 [History] Sertraline HCl 50 mg [Zoloft 50 mg Tablet] 200 mg PO DAILY 07/14/21 [History] Carbidopa/Levodopa [Carbidopa-Levo 25-100 mg Odt] 2 each PO BID 01/27/22 [History] Cyanocobalamin (Vitamin B-12) [Vitamin B-12] 1,500 mcg PO DAILY 01/27/22 [History] Dicyclomine HCl 20 mg PO BID 07/06/22 [History] Travel Risk - International Travel Have you traveled outside of the country in past 3 weeks: No - Coronavirus Screening Are you exhibiting any of the following symptoms?: Yes Symptoms: Cough: New Onset, Shortness of Breath, Vomiting/Diarrhea, Headaches/Richard dy Aches/Fatigue Close contact with a COVID-19 positive Pt in past 14-21 Days: No - Vaccine Status Have you recieved a Covid-19 vaccination: Yes [employer]: [employer] - Vaccination Dates Date of 2cond Vaccination (if applicable): 2020 <DEBBIE GIVENS - Last Filed: 12/08/23 11:03> - Review of Systems Constitutional: No Symptoms, No Fever, No Chills Eyes: No Symptoms Ears, Nose, & Throat: No Symptoms Respiratory: No Symptoms, No Cough, No Dyspnea Cardiac: No Symptoms, No Chest Pain, No Edema, No Syncope Abdominal/Gastrointestinal: No Symptoms, No Abdominal Pain, No Nausea, No Vomiting, No Diarrhea Genitourinary Symptoms: No Symptoms, No Dysuria Musculoskeletal: No Symptoms, No Back Pain, No Neck Pain Skin: No Symptoms, No Rash Neurological: No Symptoms, No Dizziness, No Focal Weakness, No Sensory Changes Psychological: No Symptoms Endocrine: No Symptoms Hematologic/Lymphatic: No Symptoms Immunological/Allergic: No Symptoms All Other Systems: Reviewed and Negative <EDWARD LARA - Last Filed: 12/05/23 13:55> - Past Medical History Pertinent Past Medical History: Yes Neurological History: Other ENT History: No Pertinent History Cardiac History: Angina, Arrhythmia, Coronary Artery Disease, High Cholesterol, Hypertension, Myocardial Infarction ([place]) Respiratory History: COPD, Emphysema Endocrine Medical History: No Pertinent History Musculoskeletal History: Osteoarthritis GI Medical History: No Pertinent History, Gallbladder Disease History: No Pertinent History Psycho-Social History: Anxiety, Depression Male Reproductive Disorders: No Pertinent History Other Medical History: Carpal tunnel surgery on the R hand. 4 surgeries on R shoulder, section of R clavical removed, lumbar spine surgery. Recent Parkinson's diagnosis - Past Surgical History Past Surgical History: Yes Neuro Surgical History: No Pertinent History Cardiac: Cardiac Catheterization Respiratory: No Pertinent History Gastrointestinal: Cholecystectomy Genitourinary: No Pertinent History Musculoskeletal: Orthopedic Surgery Male Surgical History: No Pertinent History Other Surgical History: right shoulder surgeries. states "took half my collar bone out",rotator cuff right side ,carpal tunnel right wrist,section of right clavicle removed r/t being at age 29, surgery to back 04/2019 states "took out a piece of ruptured vertebrae". lumbar spine stimulator - Social History Smoking Status: Current every day smoker How long have you smoked: 45 yrs Exposure to second hand smoke: Yes Alcohol Use: Socially Drug Use: marijuana Patient Lives Alone: No Significant Family History: no pertinent family hx <DEBBIE GIVENS - Last Filed: 12/08/23 11:03> - Physical Exam General Appearance: no apparent distress, alert Eye Exam: PERRL/EOMI, eyes nml inspection Ears, Nose, Throat Exam: normal ENT inspection, moist mucous membranes Neck Exam: normal inspection, non-tender, supple, full range of motion Respiratory Exam: diminished breath sounds, rhonchi, wheezing, No respiratory distress Cardiovascular Exam: regular rate/rhythm, normal heart sounds, normal peripheral pulses Gastrointestinal/Abdomen Exam: soft, normal bowel sounds, No tenderness, No mass Back Exam: normal inspection, normal range of motion, No CVA tenderness, No vertebral tenderness Extremity Exam: normal inspection, normal range of motion, pelvis stable Neurologic Exam: alert, oriented x 3, cooperative, normal mood/affect, sensation nml, No motor deficits Skin Exam: normal color, warm, dry, No rash Lymphatic Exam: No adenopathy O2 Delivery: Room Air <FARHAT LARALANDO - Last Filed: 12/05/23 13:55> - Physical Exam SpO2: 96 <DEBBIE GIVENS - Last Filed: 12/08/23 11:03> - Nursing Vital Signs Nursing Vital Signs: Initial Vital Signs Temperature 98.4 F 12/05/23 06:24 Pulse Rate 73 12/05/23 06:24 Respiratory Rate 22 12/05/23 06:24 Blood Pressure 147/107 12/05/23 06:24 O2 Sat by Pulse Oximetry 95 12/05/23 06:24 Pain Scale Pain Intensity 4 - Course Nursing assessment & vital signs reviewed: Yes - Radiology Exams Chest X-ray Interpretation: Teleradiologist Report (Continued nonacute hyperinflated chest with chronic features.) <FARHAT LARALANDO - Last Filed: 12/05/23 13:55> Ordered Tests: Medication Summary Discontinued Medications Generic Name Dose Route Start Last Admin Trade Name Freq PRN Reason Stop Dose Admin Albuterol Sulfate 2.5 mg 12/05/23 08:06 12/05/23 08:20 Albuterol Sulfate 2.5 Mg/3 Ml Neb IH 12/05/23 08:07 2.5 mg STAT ONE Administration Albuterol Sulfate Confirm 12/05/23 08:14 Albuterol Sulfate 2.5 Mg/3 Ml Neb Administered 12/05/23 08:15 Dose 2.5 mg IH .STK-MED ONE Aspirin 324 mg 12/05/23 10:31 12/05/23 10:41 Aspirin 81 Mg Tab.Chew PO 12/05/23 10:32 324 mg STAT ONE Administration Aspirin Confirm 12/05/23 10:36 Aspirin 81 Mg Tab.Chew Administered 12/05/23 10:37 Dose 324 mg .ROUTE .STK-MED ONE Methylprednisolone Sodium 0 mg 12/05/23 08:06 12/05/23 08:14 Succinate 125 mg/ Sterile IV 12/05/23 08:07 125 mg Water 2 ml STAT ONE Administration Diphenhydramine HCl 25 mg 12/05/23 10:26 12/05/23 10:41 Diphenhydramine Hcl 50 Mg/Ml Vial IV 12/05/23 10:27 25 mg STAT ONE Administration Diphenhydramine HCl Confirm 12/05/23 10:36 Diphenhydramine Hcl 50 Mg/Ml Vial Administered 12/05/23 10:37 Dose 50 mg .ROUTE .STK-MED ONE Gabapentin 800 mg 12/05/23 12:26 12/05/23 13:20 Gabapentin 400 Mg Capsule PO 12/05/23 12:27 800 mg NOW ONE Administration Methylprednisolone Sodium Succinate Confirm 12/05/23 08:13 Methylprednis Sod Succ 125 Mg/2 Ml Vial Administered 12/05/23 08:14 Dose 125 mg .ROUTE .STK-MED ONE Sterile Water Confirm 12/05/23 08:13 Water For Injection,Sterile 10 Ml Vial Administered 12/05/23 08:14 Dose 10 ml IJ .STK-MED ONE Lab/Rad Data: Laboratory Result Diagrams 12/05/23 06:55 12/05/23 06:55 Laboratory Results 12/05/23 12/05/23 12/05/23 Range/Units 12:10 08:50 08:07 WBC (4.0-10.5) x10^3/uL RBC (4.1-5.6) x10^6/uL Hgb (12.5-18.0) g/dL Hct (42-50) % MCV (78-100) fL MCH (26-32) pg MCHC (32-36) g/dL RDW (11.5-14.0) % Plt Count (150-450) x10^3/uL MPV (7.5-11.0) fL Gran % (36.0-66.0) % Immature Gran % (Auto) (0.00-0.4) % Nucleat RBC Rel Count (0.00-0.1) % Eos # (Auto) (0-0.5) x10^3/uL Immature Gran # (Auto) (0.00-0.03) x10^3u/L Absolute Lymphs (auto) (1.0-4.6) x10^3/uL Absolute Monos (auto) (0.0-1.3) x10^3/uL Absolute Nucleated RBC (0.00-0.01) x10^3u/L Lymphocytes % (24.0-44.0) % Monocytes % (0.0-12.0) % Eosinophils % (0.00-5.0) % Basophils % (0.0-0.4) % Absolute Granulocytes (1.4-6.9) x10^3/uL Basophils # (0-0.4) x10^3/uL D-Dimer 0.35 (0.0-0.50) mg/L Sodium (137-145) mmol/L Potassium (3.5-5.1) mmol/L Chloride (98-107) mmol/L Carbon Dioxide (22-30) mmol/L Anion Gap (5-15) MEQ/L BUN (9-20) mg/dL Creatinine (0.66-1.25) mg/dL Estimated GFR ML/MIN Glucose (74-106) mg/dL Lactic Acid (0.4-2.0) Calcium (8.4-10.2) mg/dL Total Bilirubin (0.2-1.3) mg/dL AST (17-59) U/L ALT (0-50) U/L Alkaline Phosphatase (38-126) U/L Troponin I < 0.012 (0.000-0.034) ng/mL Serum Total Protein (6.3-8.2) g/dL Albumin (3.5-5.0) g/dL Urine Color Yellow (Yellow) Urine Appearance Clear (Clear) Urine pH 5.5 (4.6-8.0) Ur Specific [place] 1.025 (1.005-1.030) Urine Protein Negative (Negative) Urine Glucose (UA) Negative (Negative) mg/dL Urine Ketones Trace A (Negative) Urine Blood Trace (Negative) Urine Nitrite Negative (Negative) Urine Bilirubin Negative (Negative) Urine Urobilinogen 0.2 (0.2) mg/dL Ur Leukocyte Esterase Negative (Negative) Urine Microscopic RBC 0-2 (0-5) /HPF Urine Microscopic WBC 0-2 (0-5) /HPF Ur Epithelial Cells None Seen (None Seen) /HPF Urine Bacteria None Seen (None Seen) /HPF Urine Culture Reflexed NO (NO) Influenza Type A Ag (NEGATIVE) Influenza Type B Ag (NEGATIVE) RSV (PCR) (NEGATIVE) SARS-CoV-2 (PCR) (NEGATIVE) 12/05/23 12/05/23 12/05/23 Range/Units 07:11 06:55 06:55 WBC (4.0-10.5) x10^3/uL RBC (4.1-5.6) x10^6/uL Hgb (12.5-18.0) g/dL Hct (42-50) % MCV (78-100) fL MCH (26-32) pg MCHC (32-36) g/dL RDW (11.5-14.0) % Plt Count (150-450) x10^3/uL MPV (7.5-11.0) fL Gran % (36.0-66.0) % Immature Gran % (Auto) (0.00-0.4) % Nucleat RBC Rel Count (0.00-0.1) % Eos # (Auto) (0-0.5) x10^3/uL Immature Gran # (Auto) (0.00-0.03) x10^3u/L Absolute Lymphs (auto) (1.0-4.6) x10^3/uL Absolute Monos (auto) (0.0-1.3) x10^3/uL Absolute Nucleated RBC (0.00-0.01) x10^3u/L Lymphocytes % (24.0-44.0) % Monocytes % (0.0-12.0) % Eosinophils % (0.00-5.0) % Basophils % (0.0-0.4) % Absolute Granulocytes (1.4-6.9) x10^3/uL Basophils # (0-0.4) x10^3/uL D-Dimer (0.0-0.50) mg/L Sodium 139 (137-145) mmol/L Potassium 3.9 (3.5-5.1) mmol/L Chloride 107 (98-107) mmol/L Carbon Dioxide 25 (22-30) mmol/L Anion Gap 10.9 (5-15) MEQ/L BUN 17 (9-20) mg/dL Creatinine 0.62 L (0.66-1.25) mg/dL Estimated GFR 108.7 ML/MIN Glucose 101 (74-106) mg/dL Lactic Acid (0.4-2.0) Calcium 9.3 (8.4-10.2) mg/dL Total Bilirubin 0.70 (0.2-1.3) mg/dL AST 28 (17-59) U/L ALT 33 (0-50) U/L Alkaline Phosphatase 94 (38-126) U/L Troponin I < 0.012 (0.000-0.034) ng/mL Serum Total Protein 8.1 (6.3-8.2) g/dL Albumin 4.7 (3.5-5.0) g/dL Urine Color (Yellow) Urine Appearance (Clear) Urine pH (4.6-8.0) Ur Specific [place] (1.005-1.030) Urine Protein (Negative) Urine Glucose (UA) (Negative) mg/dL Urine Ketones (Negative) Urine Blood (Negative) Urine Nitrite (Negative) Urine Bilirubin (Negative) Urine Urobilinogen (0.2) mg/dL Ur Leukocyte Esterase (Negative) Urine Microscopic RBC (0-5) /HPF Urine Microscopic WBC (0-5) /HPF Ur Epithelial Cells (None Seen) /HPF Urine Bacteria (None Seen) /HPF Urine Culture Reflexed (NO) Influenza Type A Ag NEGATIVE (NEGATIVE) Influenza Type B Ag NEGATIVE (NEGATIVE) RSV (PCR) NEGATIVE (NEGATIVE) SARS-CoV-2 (PCR) POSITIVE A (NEGATIVE) 12/05/23 12/05/23 Range/Units 06:55 06:49 WBC 7.6 (4.0-10.5) x10^3/uL RBC 5.35 (4.1-5.6) x10^6/uL Hgb 15.3 (12.5-18.0) g/dL Hct 47.3 (42-50) % MCV 88.4 (78-100) fL MCH 28.6 (26-32) pg MCHC 32.3 (32-36) g/dL RDW 13.5 (11.5-14.0) % Plt Count 375 (150-450) x10^3/uL MPV 9.5 (7.5-11.0) fL Gran % 47.4 (36.0-66.0) % Immature Gran % (Auto) 0.3 (0.00-0.4) % Nucleat RBC Rel Count 0.0 (0.00-0.1) % Eos # (Auto) 0.24 (0-0.5) x10^3/uL Immature Gran # (Auto) 0.02 (0.00-0.03) x10^3u/L Absolute Lymphs (auto) 3.04 (1.0-4.6) x10^3/uL Absolute Monos (auto) 0.69 (0.0-1.3) x10^3/uL Absolute Nucleated RBC 0.00 (0.00-0.01) x10^3u/L Lymphocytes % 39.8 (24.0-44.0) % Monocytes % 9.0 (0.0-12.0) % Eosinophils % 3.1 (0.00-5.0) % Basophils % 0.4 (0.0-0.4) % Absolute Granulocytes 3.62 (1.4-6.9) x10^3/uL Basophils # 0.03 (0-0.4) x10^3/uL D-Dimer (0.0-0.50) mg/L Sodium (137-145) mmol/L Potassium (3.5-5.1) mmol/L Chloride (98-107) mmol/L Carbon Dioxide (22-30) mmol/L Anion Gap (5-15) MEQ/L BUN (9-20) mg/dL Creatinine (0.66-1.25) mg/dL Estimated GFR ML/MIN Glucose (74-106) mg/dL Lactic Acid 1.9 (0.4-2.0) Calcium (8.4-10.2) mg/dL Total Bilirubin (0.2-1.3) mg/dL AST (17-59) U/L ALT (0-50) U/L Alkaline Phosphatase (38-126) U/L Troponin I (0.000-0.034) ng/mL Serum Total Protein (6.3-8.2) g/dL Albumin (3.5-5.0) g/dL Urine Color (Yellow) Urine Appearance (Clear) Urine pH (4.6-8.0) Ur Specific [place] (1.005-1.030) Urine Protein (Negative) Urine Glucose (UA) (Negative) mg/dL Urine Ketones (Negative) Urine Blood (Negative) Urine Nitrite (Negative) Urine Bilirubin (Negative) Urine Urobilinogen (0.2) mg/dL Ur Leukocyte Esterase (Negative) Urine Microscopic RBC (0-5) /HPF Urine Microscopic WBC (0-5) /HPF Ur Epithelial Cells (None Seen) /HPF Urine Bacteria (None Seen) /HPF Urine Culture Reflexed (NO) Influenza Type A Ag (NEGATIVE) Influenza Type B Ag (NEGATIVE) RSV (PCR) (NEGATIVE) SARS-CoV-2 (PCR) (NEGATIVE) - Progress Progress: improved Counseled pt/family regarding: diagnosis, need for follow-up, rad results <EDWARD LARA - Last Filed: 12/05/23 13:55> <DEBBIE GIVENS - Last Filed: 12/08/23 11:03> - Progress Progress Note: 63-year-old male presents to our ED with shortness of breath. Patient is COVID-positive. Troponin negative x 2. D-dimer negative. Chest x-ray shows nonacute hyperinflated lung. Patient is a current smoker. Patient is asymptomatic from respiratory point of view. However patient complains of ongoing diarrhea and nausea. No vomiting. Patient able to tolerate p.o. Patient ambulated throughout our ED and maintained a normal O2 sat. Patient states he feels well enough to go home. No indication for admission at this time. Patient significant other at bedside. She states she will continue to monitor his progress in terms of nausea vomiting and hydration status. They will return if symptoms worsen. Otherwise he will follow-up with her primary care doctor within 48 hours for evaluation. They voiced no other complaints or concerns at this time. Portions of this note were created with voice recognition technology. There may be grammatical, spelling, punctuation or sound alike errors Complexity problem addressed is moderate acute complicated No critical care time Complex of data reviewed and analyzed is moderate. Test ordered test reviewed results analyzed and correlated clinically with history and physical exam. Risk complication and a risk morbidity/mortality of patient management is moderate. Vital stable. Time spent to discharge patient approximately 15 minutes. Plan of care established for shared decision making. No social determinants of health present impede follow-up. Portions of this note were created with voice recognition technology. There may be grammatical, spelling, punctuation or sound alike errors 12/05/23 14:03 12/05/23 14:04 (EDWARD LARA) 12/08/23 11:00 I never saw or examined the patient but simply ordered labs to expediate diagnosis and treatment at shift change after looking at nurses triage note. (DEBBIE GIVENS) - Departure Departure Disposition: Home Critical Care Time: No <EDWARD LARA - Last Filed: 12/05/23 13:55> <DEBBIE GIVENS - Last Filed: 12/08/23 11:03> - Departure Clinical Impression: COVID-19, COPD exacerbation, Nausea and vomiting, Diarrhea Condition: Stable Referrals: VAISHALI CHAMBERS NP [Primary Care Provider] - Follow up/PCP as directed Instructions: Chronic Obstructive Pulmonary Disease, COVID-19 ED Additional Instructions: Discharge/Care Plan DENA CHAMBERS was seen on 12/05/23 in the Emergency Room. The patient was counseled regarding Diagnosis,Lab results, Imaging studies, need for follow up and when to return to the Emergency Room. Prescriptions given: Discharge Note I have spoken with the patient and/or caregivers. I have explained the patient's condition, diagnosis and treatment plan based on the information available to me at this time. I have answered the patient's and/or caregiver's questions and addressed any concerns. The patient and/or caregivers have as good understanding of the patient's diagnosis, condition and treatment plan as can be expected at this point. The vital signs have been stable. The patient's condition is stable and appropriate for discharge from the emergency department. The patient will pursue further outpatient evaluation with the primary care physician or other designated or consulting physician as outlined in the discharge instructions. The patient and/or caregivers are agreeable to this plan of care and follow-up instructions have been explained in detail. The patient and/or caregivers have received these instruction. The patient/and or caregivers are aware that any significant change in condition or worsening of symptoms s hould prompt an immediate return to this or the closest emergency department or call 911.
[2023-12-05 07:52] VITALS: RESP 14
[2023-12-05 07:55] LABS: INFLUENZA A NEGATIVE (NEGATIVE); INFLUENZA B NEGATIVE (NEGATIVE); RESPIRATORY SYNCTIAL VIRUS NEGATIVE (NEGATIVE)
[2023-12-05 07:56] LABS: SARS-CoV-2 Xpert Express POSITIVE (NEGATIVE)
[2023-12-05] MEDS ORDERED: PROVENTIL 2.5 MG/3 ML NEB IH ONE ×2 (08:06→08:14)
[2023-12-05] MEDS ORDERED: solu-MEDROL 125 MG, Sterile H2O 10 ml 2 ML IV ONE ×2 (08:06)
[2023-12-05] MEDS ORDERED: Sterile H2O 10 ml IJ ONE (08:13)
[2023-12-05] MEDS ORDERED: solu-MEDROL ONE (08:13)
[2023-12-05 09:04] LABS: Appearance Clear (Clear); Bilirubin Negative (Negative); Blood Trace (Negative); Glucose, Urine Negative (Negative); Ketones Trace (Negative); Leukocyte Esterase Negative (Negative); Nitrite Negative (Negative); Ph 5.5 (4.6-8.0); Protein,Urine Dip Negative (Negative); RBC 0-2 /HPF (0-5); Specific Gravity 1.025 (1.005-1.030); Urobilinogen 0.2 mg/dL (0.2); WBC 0-2 /HPF (0-5)
[2023-12-05 09:05] LABS: ADD URINE CULTURE? NO (NO); Bacteria None Seen /HPF (None Seen); Epithelial Cells None Seen /HPF (None Seen)
--- NOTE | 2023-12-05 09:06 | XRAY ---
Indication: Cough. Comparison: May 21, 2021 Portable apical lordotic chest again hyperinflated and clear with incidental left base calcified granuloma. Heart not enlarged. Bony thorax intact again with osteopenia and mild degenerative changes. New epidural lead terminates T9. Impression: Continued nonacute hyperinflated chest with chronic features.
[2023-12-05] MEDS ORDERED: BENADRYL 50 MG/ML IV ONE (10:26)
[2023-12-05] MEDS ORDERED: BABY ASPIRIN 81 MG CHEW PO ONE (10:31)
[2023-12-05] MEDS ORDERED: BABY ASPIRIN 81 MG CHEW ONE (10:36)
[2023-12-05] MEDS ORDERED: BENADRYL 50 MG/ML ONE (10:36)
[2023-12-05] MEDS ORDERED: Neurontin PO ONE (12:26)
[2023-12-05 13:05] VITALS: BP 125/84; PULSE 80
[2023-12-08 11:03] VITALS: O2SAT 96
== END 2023-12-05 14:15 | disposition home or self-care (01) ==
LOC: ED 06:17
DX: U07.1 COVID-19 (principal); J44.1 Chronic obstructive pulmonary disease with (acute) exacerbation; R11.2 Nausea with vomiting, unspecified; R19.7 Diarrhea, unspecified; R06.02 Shortness of breath; E78.5 Hyperlipidemia, unspecified; I10 Essential (primary) hypertension; Z79.899 Other long term (current) drug therapy; Z72.0 Tobacco use
CPT/HCPCS: 0241U; 36000; 36415; 71045; 80053; 81001; 83605; 84484; 85025; 85379; 87040; 93005; 94640; 96374; 96375; 99284; J1200; J2930; J7609; A9270-GY

== ENCOUNTER 2024-06-01 20:42 | Emergency (ER) | payer OTHER ==
--- NOTE | 2024-06-01 20:59 | ERPHSYRPT ---
- History of Present Illness Time Seen by Provider: 06/01/24 20:50 Historian: patient, EMS Exam Limitations: no limitations Physician History: pt has 3 day hx of left sided chest pain radiating into left arm. He states he told them in PT as well. He reports a fall recently also no LOC and denies hitting head or use of blood thinners. He states he hit his chest when he fell. the left anterior chest is tender. It got worse so he called EMS this evening. He has had 2 MIs but no CABG or stents - his manager stone is Dr. Pitts in . He has perhaps mild SOBreath ( labored by observation but not reported by pt as present when asked) but CP is much more prominent. His left abd is tender to palpation. no peritoneal signs or masses. He has chronic LBP with a spinal stimulator. He has Parkinsons treated by Neurologist Dr. Kim -----. He got 324 ASA in route and 1 NTG without relief. He has been being worked up for possible CVA and reports negative CT already of head and awaiting results from a PET scan last week all for persisting left sided weakness also found on exam today with hyper-reflexia left side , but no reported change in neuro symptoms today per pt or EMS. EMS is present in ER as independent source for Hx. Discussed risks/benefits with pt and available family in ER for testing and Tx including IV, CT Abd, CT chest, D DImer, EKG, TRops , BNP, amylase Lipase, CBC, CMP, UA, Lactate, and they wish to proceed, and these are ordered. Results discussed with pt and family. Timing/Duration: day(s) Activities at Onset: none Quality: fullness, pressure, sharpness, stabbing Location: other (left lower chest) Chest Pain Radiation: arm Severity of Pain-Max: moderate Severity of Pain-Current: moderate Modifying Factors: Improves With: coughing, palpation Associated Symptoms: nausea, vomiting, abdominal pain, cough Prior Chest Pain/Cardiac Workup: heart attack, recently seen/treated Nitro Today/Relief: 0.4 mg x 1, provided by EMS, no relief Aspirin Treatment Today: 325 mg x 1, provided by EMS Allergies/Adverse Reactions: No Known Drug Allergies Allergy (Verified 06/01/24 20:47) Home Medications: Diclofenac Sodium 75 mg PO BID 05/04/19 [History] Gabapentin 800 mg PO QID 05/04/19 [History] Albuterol 8 gm Mdi Hfa [Ventolin Hfa MDI] 90 mcg IH Q4-6HPRN PRN 10/21/19 [History] Tamsulosin HCl 0.4 mg [Flomax 0.4 MG] 0.4 mg PO QPM 10/21/19 [History] Albuterol 2.5 mg/3 ml Neb [Proventil 2.5 mg/3 ml Neb] 1 inh IH Q4H PRN PRN 05/21/21 [History] Atorvastatin Calcium 80 mg PO HS 05/21/21 [History] Budesonide/Formoterol Fumarate [Symbicort 160-4.5 Mcg Inhaler] 2 puffs IH BID 05/21/21 [History] Carvedilol 3.125 mg [Coreg 3.125 MG] 6.25 mg PO BID 05/21/21 [History] Cyclobenzaprine HCl 10 mg [Cyclobenzaprine 10 MG] 10 mg PO TID 05/21/21 [History] Ergocalciferol (Vitamin D2) [Vitamin D2] 1.25 mg PO WEEKLY 05/21/21 [History] Fluticasone Propionate [24 Hour Allergy Relief] 1 spray INTRANASAL HS 05/21/21 [History] Losartan Potassium 50 mg [Cozaar 50 MG] 50 mg PO DAILY 05/21/21 [History] Sertraline HCl 50 mg [Zoloft 50 mg Tablet] 200 mg PO DAILY 07/14/21 [History] Carbidopa/Levodopa [Carbidopa-Levo 25-100 mg Odt] 1 each PO BID 01/27/22 [History] Cyanocobalamin (Vitamin B-12) [Vitamin B-12] 500 mcg PO DAILY 01/27/22 [History] Bupropion HCl 150 mg Sr [Wellbutrin SR 150 MG] 150 mg PO BID 06/01/24 [History] Magnesium 400 mg PO DAILY 06/01/24 [History] Ondansetron [Ondansetron Odt] 4 mg PO Q8HPRN PRN 06/01/24 [History] Ranolazine 500 MG [Ranexa 500 MG] 500 mg PO BID 06/01/24 [History] diphenhydrAMINE HCL [Sleep Aid] 50 mg PO HS 06/01/24 [History] Hx Tetanus, Diphtheria Vaccination/Date Given: Yes Hx Influenza Vaccination/Date Given: Yes Hx Pneumococcal Vaccination/Date Given: No - Review of Systems Constitutional: No Fever, No Chills Eyes: No Symptoms Ears, Nose, & Throat: No Symptoms Respiratory: No Cough, No Dyspnea Cardiac: Chest Pain (with palpation and deep breath), No Edema, No Syncope Abdominal/Gastrointestinal: Abdominal Pain, Nausea, Vomiting, No Diarrhea Genitourinary Symptoms: No Dysuria Musculoskeletal: Fall, No Back Pain, No Neck Pain Skin: No Rash Neurological: No Dizziness, No Focal Weakness, No Sensory Changes Psychological: No Symptoms Endocrine: No Symptoms Hematologic/Lymphatic: No Symptoms Immunological/Allergic: No Symptoms All Other Systems: Reviewed and Negative - Past Medical History Pertinent Past Medical History: Yes Neurological History: Other ENT History: No Pertinent History Cardiac History: Coronary Artery Disease, Hypertension Respiratory History: COPD Endocrine Medical History: No Pertinent History Musculoskeletal History: Osteoarthritis GI Medical History: No Pertinent History, Gallbladder Disease History: No Pertinent History Psycho-Social History: Anxiety, Depression Male Reproductive Disorders: No Pertinent History Other Medical History: ARACHNOIDITIS, 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 states "took half my collar bone out",rotator cuff right side ,carpal tunnel right wrist,section of right clavicle removed r/t being at age 29, surgery to back 04/2019 states "took out a piece of ruptured vertebrae". lumbar spine stimulator Significant Family History: no pertinent family hx - Social History Smoking Status: Current every day smoker How long have you smoked: 45 yrs Exposure to second hand smoke: Yes Alcohol Use: Socially Drug Use: marijuana Patient Lives Alone: No - Nursing Vital Signs Nursing Vital Signs: Initial Vital Signs Temperature 97.8 F 06/01/24 20:44 Pulse Rate 91 H 06/01/24 20:44 Blood Pressure 140/100 06/01/24 20:44 Pain Scale Pain Intensity 6 - Physical Exam General Appearance: mild distress, alert Eye Exam: PERRL/EOMI, eyes nml inspection Ears, Nose, Throat Exam: normal ENT inspection, moist mucous membranes Neck Exam: normal inspection, non-tender, supple, full range of motion Respiratory Exam: normal breath sounds, chest tenderness, lungs clear, airway intact, No respiratory distress Cardiovascular Exam: regular rate/rhythm, normal heart sounds, normal peripheral pulses Gastrointestinal/Abdomen Exam: soft, tenderness, guarding, No distention, No mass, No pulsatile mass Rectal Exam: deferred Back Exam: normal inspection, No CVA tenderness, No vertebral tenderness Extremity Exam: normal inspection, normal range of motion Neurologic Exam: alert, oriented x 3, cooperative, normal mood/affect, sensation nml, motor deficits (pt has had weakness on left side being evaluated for CVA without any recent change), motor weakness, abnormal gait, No nml cerebellar function, No nml station & gait Skin Exam: normal color, warm, dry SpO2 Interpretation: normal SpO2: 96 O2 Delivery: Room Air - Course Nursing assessment & vital signs reviewed: Yes EKG Interpreted by Me: Sinus Rhythm, NORMAL AXIS, NORMAL INTERVALS, Non-specific ST Changes, Other (septal q wave QRS) - CT Exams Abdomen/Pelvis CT Interpretation: Tele-radiologist Report, No appendicitis, No Fracture Chest CT Interpretation: Tele-radiologist Report, No PE, Other (pulmonary nodules, t spine Fx t process and left second rib; no aortic dissection on CTA) Ordered Tests: Active Orders 24 hr Category Date Time Status EKG-ER Only STAT Care 06/01/24 21:09 Active IV Insertion STAT Care 06/01/24 21:09 Active Pulse Oximetry (ED) STAT Care 06/01/24 21:11 Active ABDOMEN AND PELVIS W/0 CONTRAS [CT] Stat Exams 06/01/24 21:09 Completed CHEST WITH CONTRAST [CT] Stat Exams 06/02/24 01:37 Completed CHEST WITHOUT CONTRAST [CT] Stat Exams 06/01/24 21:07 Completed AMYLASE Stat Lab 06/01/24 21:40 Completed CBC W DIFF Stat Lab 06/01/24 21:40 Completed CMP Stat Lab 06/01/24 21:40 Completed D-DIMER QUANTITATIVE Stat Lab 06/01/24 21:40 Completed LIPASE Stat Lab 06/01/24 21:40 Completed Lactic Acid Stat Lab 06/01/24 21:45 Completed NT PRO BNPII Stat Lab 06/01/24 21:40 Completed TROPONIN Q4H Lab 06/01/24 21:40 Completed TROPONIN Q4H Lab 06/02/24 01:20 Completed TROPONIN Q4H Lab 06/02/24 05:15 Ordered UA W/RFX UR CULTURE Stat Lab 06/01/24 21:09 Ordered Medication Summary Generic Name Dose Route Start Last Admin Trade Name Freq PRN Reason Stop Dose Admin Sodium Chloride 1,000 mls @ 50 mls/hr 06/01/24 21:15 06/01/24 21:32 Sodium Chloride 0.9% 1000 Ml IV 07/01/24 21:14 50 mls/hr .Q20H ABNER Administration Discontinued Medications Generic Name Dose Route Start Last Admin Trade Name Freq PRN Reason Stop Dose Admin Diphenhydramine HCl 25 mg 06/01/24 21:09 06/01/24 21:32 Diphenhydramine Hcl 50 Mg/Ml Vial IV 06/01/24 21:10 25 mg STAT ONE Administration Diphenhydramine HCl Confirm 06/01/24 21:23 Diphenhydramine Hcl 50 Mg/Ml Vial Administered 06/01/24 21:24 Dose 50 mg .ROUTE .STK-MED ONE Famotidine 20 mg 06/01/24 21:09 06/01/24 21:31 Famotidine 20 Mg/1 Vial IV 06/01/24 21:10 20 mg STAT ONE Administration Famotidine Confirm 06/01/24 21:23 Famotidine 20 Mg/1 Vial Administered 06/01/24 21:24 Dose 20 mg IV .STK-MED ONE Hydromorphone HCl 1 mg 06/02/24 00:53 06/02/24 01:00 Hydromorphone 1 Mg/1ml Inj IV 06/02/24 00:54 1 mg STAT ONE Administration Hydromorphone HCl Confirm 06/02/24 00:59 Hydromorphone 1 Mg/1ml Inj Administered 06/02/24 01:00 Dose 1 mg .ROUTE .STK-MED ONE Hydromorphone HCl 1 mg 06/02/24 03:44 06/02/24 03:50 Hydromorphone 1 Mg/1ml Inj IV 06/02/24 03:45 1 mg STAT ONE Administration Hydromorphone HCl Confirm 06/02/24 03:48 Hydromorphone 1 Mg/1ml Inj Administered 06/02/24 03:49 Dose 1 mg .ROUTE .STK-MED ONE Morphine Sulfate 4 mg 06/01/24 21:09 06/01/24 21:31 Morphine Sulfate 4 Mg/Ml Injection IV 06/01/24 21:10 4 mg STAT ONE Administration Morphine Sulfate Confirm 06/01/24 21:23 Morphine Sulfate 4 Mg/Ml Injection Administered 06/01/24 21:24 Dose 4 mg .ROUTE .STK-MED ONE Ondansetron HCl 4 mg 06/01/24 21:09 06/01/24 21:31 Ondansetron Hcl 4 Mg/2 Ml Vial IV 06/01/24 21:10 4 mg STAT ONE Administration Ondansetron HCl Confirm 06/01/24 21:23 Ondansetron Hcl 4 Mg/2 Ml Vial Administered 06/01/24 21:24 Dose 4 mg .ROUTE .STK-MED ONE Pantoprazole Sodium 40 mg 06/01/24 21:09 06/01/24 21:31 Pantoprazole 40 Mg Vial IV 06/01/24 21:10 40 mg STAT ONE Administration Pantoprazole Sodium Confirm 06/01/24 21:23 Pantoprazole 40 Mg Vial Administered 06/01/24 21:24 Dose 40 mg IV .STK-MED ONE Lab/Rad Data: Laboratory Result Diagrams 06/01/24 21:40 06/01/24 21:40 Laboratory Results 06/02/24 06/01/24 06/01/24 Range/Units 01:20 21:45 21:40 WBC (4.23-9.07) x10^3/uL RBC (4.63-6.08) x10^6/uL Hgb (13.7-17.5) g/dL Hct (40.1-51.0) % MCV (79.0-92.2) fL MCH (25.7-32.2) pg MCHC (32.3-36.5) g/dL RDW (11.6-14.4) % Plt Count (163-337) x10^3/uL MPV (9.4-12.4) fL Gran % (34.0-67.9) % Immature Gran % (Auto) (0.001-0.429) % Nucleat RBC Rel Count (0.00-0.2) % Eos # (Auto) (0.04-0.54) x10^3/uL Immature Gran # (Auto) (0.001-0.031) x10^3u/L Absolute Lymphs (auto) (1.32-3.57) x10^3/uL Absolute Monos (auto) (0.30-0.82) x10^3/uL Absolute Nucleated RBC (0.00-0.012) x10^3u/L Lymphocytes % (21.8-53.1) % Monocytes % (5.3-12.2) % Eosinophils % (0.8-7.0) % Basophils % (0.2-1.2) % Absolute Granulocytes (1.78-5.38) x10^3/uL Basophils # (0.01-0.08) x10^3/uL D-Dimer (0.0-0.50) mg/L Sodium (135-145) mmol/L Potassium (3.5-5.1) mmol/L Chloride (98-107) mmol/L Carbon Dioxide (22-30) mmol/L Anion Gap (5-15) MEQ/L BUN (9-20) mg/dL Creatinine (0.66-1.25) mg/dL Estimated GFR ML/MIN Glucose (74-106) mg/dL Lactic Acid 1.4 (0.4-2.0) Calcium (8.4-10.2) mg/dL Total Bilirubin (0.2-1.3) mg/dL AST (17-59) U/L ALT (0-50) U/L Alkaline Phosphatase (38-126) U/L Troponin I < 0.012 (0.000-0.033) ng/mL NT-Pro-B Natriuret Pep (<300) pg/mL Serum Total Protein (6.3-8.2) g/dL Albumin (3.5-5.0) g/dL Amylase (30-110) U/L Lipase (23-300) U/L Influenza Type A Ag (NEGATIVE) Influenza Type B Ag (NEGATIVE) RSV (PCR) (NEGATIVE) SARS-CoV-2 (PCR) (NEGATIVE) Group A Strep Antibody NOT DETECTED (NEGATIVE) 06/01/24 06/01/24 06/01/24 Range/Units 21:40 21:40 21:40 WBC (4.23-9.07) x10^3/uL RBC (4.63-6.08) x10^6/uL Hgb (13.7-17.5) g/dL Hct (40.1-51.0) % MCV (79.0-92.2) fL MCH (25.7-32.2) pg MCHC (32.3-36.5) g/dL RDW (11.6-14.4) % Plt Count (163-337) x10^3/uL MPV (9.4-12.4) fL Gran % (34.0-67.9) % Immature Gran % (Auto) (0.001-0.429) % Nucleat RBC Rel Count (0.00-0.2) % Eos # (Auto) (0.04-0.54) x10^3/uL Immature Gran # (Auto) (0.001-0.031) x10^3u/L Absolute Lymphs (auto) (1.32-3.57) x10^3/uL Absolute Monos (auto) (0.30-0.82) x10^3/uL Absolute Nucleated RBC (0.00-0.012) x10^3u/L Lymphocytes % (21.8-53.1) % Monocytes % (5.3-12.2) % Eosinophils % (0.8-7.0) % Basophils % (0.2-1.2) % Absolute Granulocytes (1.78-5.38) x10^3/uL Basophils # (0.01-0.08) x10^3/uL D-Dimer 0.50 (0.0-0.50) mg/L Sodium (135-145) mmol/L Potassium (3.5-5.1) mmol/L Chloride (98-107) mmol/L Carbon Dioxide (22-30) mmol/L Anion Gap (5-15) MEQ/L BUN (9-20) mg/dL Creatinine (0.66-1.25) mg/dL Estimated GFR ML/MIN Glucose (74-106) mg/dL Lactic Acid (0.4-2.0) Calcium (8.4-10.2) mg/dL Total Bilirubin (0.2-1.3) mg/dL AST (17-59) U/L ALT (0-50) U/L Alkaline Phosphatase (38-126) U/L Troponin I (0.000-0.033) ng/mL NT-Pro-B Natriuret Pep 74.5 (<300) pg/mL Serum Total Protein (6.3-8.2) g/dL Albumin (3.5-5.0) g/dL Amylase (30-110) U/L Lipase (23-300) U/L Influenza Type A Ag NEGATIVE (NEGATIVE) Influenza Type B Ag NEGATIVE (NEGATIVE) RSV (PCR) NEGATIVE (NEGATIVE) SARS-CoV-2 (PCR) NEGATIVE (NEGATIVE) Group A Strep Antibody (NEGATIVE) 06/01/24 06/01/24 06/01/24 Range/Units 21:40 21:40 21:40 WBC 10.8 H (4.23-9.07) x10^3/uL RBC 4.92 (4.63-6.08) x10^6/uL Hgb 14.5 (13.7-17.5) g/dL Hct 43.3 (40.1-51.0) % MCV 88.0 (79.0-92.2) fL MCH 29.5 (25.7-32.2) pg MCHC 33.5 (32.3-36.5) g/dL RDW 15.3 H (11.6-14.4) % Plt Count 384 H (163-337) x10^3/uL MPV 8.7 L (9.4-12.4) fL Gran % 61.4 (34.0-67.9) % Immature Gran % (Auto) 0.4 (0.001-0.429) % Nucleat RBC Rel Count 0.0 (0.00-0.2) % Eos # (Auto) 0.31 (0.04-0.54) x10^3/uL Immature Gran # (Auto) 0.04 H (0.001-0.031) x10^3u/L Absolute Lymphs (auto) 3.02 (1.32-3.57) x10^3/uL Absolute Monos (auto) 0.74 (0.30-0.82) x10^3/uL Absolute Nucleated RBC 0.00 (0.00-0.012) x10^3u/L Lymphocytes % 28.0 (21.8-53.1) % Monocytes % 6.9 (5.3-12.2) % Eosinophils % 2.9 (0.8-7.0) % Basophils % 0.4 (0.2-1.2) % Absolute Granulocytes 6.64 H (1.78-5.38) x10^3/uL Basophils # 0.04 (0.01-0.08) x10^3/uL D-Dimer (0.0-0.50) mg/L Sodium 141 (135-145) mmol/L Potassium 3.8 (3.5-5.1) mmol/L Chloride 110 H (98-107) mmol/L Carbon Dioxide 23 (22-30) mmol/L Anion Gap 12.5 (5-15) MEQ/L BUN 18 (9-20) mg/dL Creatinine 1.08 (0.66-1.25) mg/dL Estimated GFR 78.1 ML/MIN Glucose 91 (74-106) mg/dL Lactic Acid (0.4-2.0) Calcium 9.5 (8.4-10.2) mg/dL Total Bilirubin 0.50 (0.2-1.3) mg/dL AST 24 (17-59) U/L ALT 34 (0-50) U/L Alkaline Phosphatase 91 (38-126) U/L Troponin I < 0.012 (0.000-0.033) ng/mL NT-Pro-B Natriuret Pep (<300) pg/mL Serum Total Protein 7.3 (6.3-8.2) g/dL Albumin 4.4 (3.5-5.0) g/dL Amylase 74 (30-110) U/L Lipase 49 (23-300) U/L Influenza Type A Ag (NEGATIVE) Influenza Type B Ag (NEGATIVE) RSV (PCR) (NEGATIVE) SARS-CoV-2 (PCR) (NEGATIVE) Group A Strep Antibody (NEGATIVE) - Progress Progress: improved, re-examined Air Movement: good Progress Note: 06/02/24 01:[address] Wilhelm and risks/benefit with pt and all agree to rule out dissection and PE due to nature of the CP prior to admission. THese were accomplished and results were no dissection and no PE, but then Dr. Wilhelm decided that the patient did not meet criteria. THe process added a few hours to the timeline in the ER, but the patient did gain better pain control and another trop was negative - so the hospitalist concluded that he was safe for DC from a cardiac and vascular standpoint and did not meet admission criteria. I advised the patient that although we had completed the workup to this degree , which reduces the risk, there are still limits on the testing performed and pathology including cardiac and other vascular, abdominal, respiratory, infectious, and other can be evolving undetected and result in or other serious complications. He is comfortable with these risks and chooses outpt f/u with PMDs rather than further w/u in ER , transfer, or admission at this time and has the capacity with a normal mental status to make this choice. 06/02/24 03:59 06/02/24 04:05 06/02/24 04:11 Pt notes that pain is now just with moving and there is no associated SObreath. Blood Culture(s) Obtained: No Antibiotics given: No Discussed with DrMarlys: Other (/Theresa Hospitalist determined that the pt could have the option for home tx and f/u) Counseled pt/family regarding: lab results, diagnosis, need for follow-up, rad results, smoking cessation Medical Desision Making - Independent Historian Additional History obtained from: EMS - Discussion of managment Care discussed with:: hospitalist Reviewed:: Test results, Need for additional workup Agreed on:: Treatment plan, need for follow-up - Diagnostic Testing Diagnostic test were ordered, analyzed, and reviewed by me: Yes Radiological Interpretation: Interpreted by me, Reviewed by me, Teleradiologist Report - Risk of complications The pt has a mod risk of morbidity or mortality based on: Need for prescription drug management The pt has a high risk of morbidity or mortality based on: Decision regarding hospitilization or escalation of hosp level of care - Departure Departure Disposition: Observation Clinical Impression: pulmonary nodules incidental, left rib posterior defect, stable left sided weakness , Parkinsons disease, intractable pain and vomiting, Nausea and vomiting Condition: Good Critical Care Time: No Referrals: VAISHALI CHAMBERS NP [Primary Care Provider] - Follow up/PCP as directed Instructions: Multiple pulmonary nodules, Quitting Smoking ED, Chest Pain (DC), Nausea and Vomiting, Adult ED Additional Instructions: Follow-up with your DrMarlyss for the lung nodules. neurologic conditions,blood pressure, chronic pain and new pain, and hx of vomiting. ALthough we have checked several tests and found no major problems and did not find an acute cardiac or vascular or abdominal condition, we did not identify the source for your symptoms and there still could be a cardiac, vascular, abdominal, infectious, or other conditions evolving undetected. THerefore your followup with your DrMarlys is very important to exclude these conditions definitively. In the meantime if the symptoms return or increase, return and have them evaluated again . Consider quitting smoking
[2024-06-01 21:01] VITALS: TEMP 97.8
[2024-06-01] MEDS ORDERED: Pepcid 20 MG VIAL IV ONE (21:23)
[2024-06-01] MEDS ORDERED: BENADRYL 50 MG/ML ONE (21:23)
[2024-06-01] MEDS ORDERED: MORPHINE SULFATE 4 MG INJ ONE (21:23)
[2024-06-01] MEDS ORDERED: Sodium Chloride 0.9% 1000 ML 1,000 ML ONE (21:23)
[2024-06-01] MEDS ORDERED: PROTONIX 40 MG IV IV ONE (21:23)
[2024-06-01] MEDS ORDERED: Zofran 4 MG/2 ML VIAL ONE (21:23)
[2024-06-01] MEDS: Zofran 4 MG/2 ML VIAL IV ONE (21:31)
[2024-06-01] MEDS: MORPHINE SULFATE 4 MG INJ IV ONE (21:31)
[2024-06-01] MEDS: PROTONIX 40 MG IV IV ONE (21:31)
[2024-06-01] MEDS: Pepcid 20 MG VIAL IV ONE (21:31)
[2024-06-01] MEDS: Sodium Chloride 0.9% 1000 ML 1,000 ML IV SCH (21:32)
[2024-06-01] MEDS: BENADRYL 50 MG/ML IV ONE (21:32)
[2024-06-01 21:48] LABS: Absolute Neutrophil Ct (ANC) 6.64 x10^3/uL (1.78-5.38); BASOPHIL % 0.4 % (0.2-1.2); Basophil (Absolute #) 0.04 x10^3/uL (0.01-0.08); Eosinophil % 2.9 % (0.8-7.0); Eosinophil (Absolute #) 0.31 x10^3/uL (0.04-0.54); Hematocrit 43.3 % (40.1-51.0); Hemoglobin 14.5 g/dL (13.7-17.5); IMMATURE GRAN # 0.04 x10^3u/L (0.001-0.031); IMMATURE GRAN % 0.4 % (0.001-0.429); Lymphocyte (Absolute #) 3.02 x10^3/uL (1.32-3.57); Mean Corpuscular Hemoglobin 29.5 pg (25.7-32.2); Mean Corpuscular Hgb Concent. 33.5 g/dL (32.3-36.5); Mean Platelet Volume 8.7 fL (9.4-12.4); Monocyte (Absolute #) 0.74 x10^3/uL (0.30-0.82); Monocytes % 6.9 % (5.3-12.2); Neutrophil % 61.4 % (34.0-67.9); Platelet Count 384 x10^3/uL (163-337); Red Blood Count 4.92 x10^6/uL (4.63-6.08); Red Cell Distribution Width 15.3 % (11.6-14.4); White Blood Count 10.8 x10^3/uL (4.23-9.07)
[2024-06-01 22:02] LABS: ALBUMIN 4.4 g/dL (3.5-5.0); ANION GAP 12.5 MEQ/L (5-15); BILIRUBIN,TOTAL 0.5 mg/dL (0.2-1.3); Calcium 9.5 mg/dL (8.4-10.2); Creatinine 1 1.08 mg/dL (0.66-1.25); EST GLOMERULAR FILTRATION RATE 78.1 ML/MIN; Potassium 3.8 mmol/L (3.5-5.1); Total Protein 7.3 g/dL (6.3-8.2)
[2024-06-01 22:34] LABS: INFLUENZA A NEGATIVE (NEGATIVE); INFLUENZA B NEGATIVE (NEGATIVE); RESPIRATORY SYNCTIAL VIRUS NEGATIVE (NEGATIVE); SARS-CoV-2 Xpert Express NEGATIVE (NEGATIVE)
--- NOTE | 2024-06-01 23:20 | XRAY ---
CLINICAL HISTORY: tender left abd after falling COMPARISON: No comparison. TECHNIQUE: CT of abdomen and pelvis was performed without IV contrast. FINDINGS: The liver parenchyma show smooth margins without obvious focal lesion on this non contrast study. Surgically removed gallbladder, nondilated biliary system. No acute abnormality in the pancreas, adrenals or spleen. Multiple tiny splenic calcified granulomata are seen. No obstructing calculi or hydroureter in either kidney. Unremarkable urinary bladder and prostate. No acute abnormality in the pelvis. The small and large bowel loops show no wall thickening, dilatation or obstruction. Normal appendix. No diverticulitis or colitis no pneumatosis. No omental nodularity. Normal mesentery. No pneumoperitoneum. No ascites. No enlarged abdominopelvic lymph nodes. Nonaneurysmal abdominal aorta. No aggressive osseous lesions. No acute fracture of the visualized bones.TENS is seen within the spine. Unremarkable soft tissues. IMPRESSION: No acute abdominopelvic findings. No hemoperitoneum or pneumoperitoneum. No acute fractures. Electronically Signed by: Von Archuleta MD. (06/01/2024 23:16:52 EDT)
--- NOTE | 2024-06-02 00:21 | XRAY ---
CLINICAL HISTORY: tender left chest after falling COMPARISON: None. TECHNIQUE: A chest CT scan without IV contrast was performed. One of the following dose-reduction techniques was utilized for this exam. Automated exposure control, adjustment of the mA and/or kV according to patient size, and use of iterative reconstruction. Total = 656.63 mGy.cm. FINDINGS: Bilateral scattered pulmonary nodules the largest measuring 6.4 mm in maximum axial dimension and 5.2 mm in mean diameter, seen in the lateral segment of the right lower lobe. 2 calcified pulmonary nodules, larger measuring 7 mm in maximum axial dimension, seen in the anteromedial of the left lower lobe. Bilateral scattered atelectatic bands. Bi-apical para septal emphysematous changes, with mild pleural thickening and interlobular septal thickening No free or encysted pleural effusion. Heart size is normal, and there is no pericardial effusion. No pathologically enlarged mediastinal, hilar, or axillary lymph node was identified. There is no definite mass lesion in the chest wall. Multiple innumerable calcific foci seen within the spleen. apparent diffuse thickening of the gastric wall, could be due to partial collapse, for clinical correlation. Atherosclerotic changes of the visualized abdominal aorta and its major branches. Thoracic scoliosis, its convexity to the left. Degenerative changes of the visualized skeleton with multilevel decreased disc space, subchondral sclerosis and irregularities as well as marginal osteophytes. Cortical irregularity seen in the left posterior second rib, appreciated on sagittal images only, not clearly visualized on sagittal and coronal images, could represent a nondisplaced hairline fracture or artifactual, however no surrounding pneumothorax or soft tissue thickening. Cortical irregularity with sclerosis noted in the left transverse process and pedicle of the first thoracic vertebra could represent indeterminate age traumatic insult. The spinal cord stimulator (epidural electrode) is seen at the mid-thoracic level. IMPRESSION: 1. Bilateral scattered pulmonary nodules, lung RADS 2, follow-up is advised. 2. Paraseptal emphysematous changes and apical capping. 3. Cortical irregularity in the posterior left second rib could represent a non-displaced hairline fracture or artifactual, clinical correlation is advised. Cortical irregularity with sclerosis in the pedicle of the first thoracic vertebra could represent an indeterminate age traumatic insult, For clinical correlation. Electronically Signed by: Von Archuleta MD. (06/02/2024 00:15:57 EDT)
[2024-06-02] MEDS ORDERED: Hydromorphone 1 mg/ml Injection ONE ×2 (00:59→03:48)
[2024-06-02] MEDS: Hydromorphone 1 mg/ml Injection IV ONE ×2 (01:00→03:50)
--- NOTE | 2024-06-02 03:21 | XRAY ---
CLINICAL HISTORY: CP Need Aorta and for PE COMPARISON: 06-01-2024 CT. TECHNIQUE: Contiguous axial CT images of the chest were acquired with the administration of 100cc of Isovue-370 intravenous contrast to visualize the pulmonary arteries and its branches. Coronal and sagittal reconstructions were obtained. One of the following dose reduction techniques was utilized for this exam.Automated exposure control, adjustment of the mA and/or kV according to patient size, and use of iterative reconstruction. FINDINGS: The left pulmonary artery and its segmental branches show inhomogeneous contrast flow, most likely artifactual rather than true filling defect. Otherwise, main and right pulmonary arteries as well as lobar and proximal segmental branches show no evidence of any filling defects. Normal caliber of main pulmonary artery. The ascending and descending thoracic aorta, aortic arch and its major branches are patent with no aneurysmal dilatation or dissecting intimal flaps. Bilateral scattered pulmonary nodules the largest measuring 6.4 mm in maximum axial dimension and 5.2 mm in mean diameter seen in the lateral segment of the right lower lobe. Two calcified pulmonary nodules, larger measuring 7 mm in maximum axial dimension, are seen in the anteromedial of the left lower lobe. Bilateral scattered atelectatic bands. Bi-apical para septal emphysematous changes. No free or encysted pleural effusion. Heart size is normal, and there is no pericardial effusion. No pathologically enlarged mediastinal, hilar, or axillary lymph node was identified. There is no definite mass lesion in the chest wall. Multiple calcific foci are seen within the spleen. Thoracic scoliosis, its convexity to the left. Degenerative changes of the visualized skeleton with multilevel decreased disc space, subchondral sclerosis, and irregularities as well as marginal osteophytes. Cortical irregularity is seen in the left posterior second rib. Cortical irregularity with sclerosis is noted in the left transverse process and pedicle of the first thoracic vertebra. The spinal cord stimulator (epidural electrode) at the mid-thoracic level. IMPRESSION: 1. No definite pulmonary thromboembolism 2. The rest of the study findings are unchanged with no acute parenchymal abnormality. 3. No thoracic aortic dissection or aneurysm. Electronically Signed by: Von Archuleta MD. (06/02/2024 03:16:15 EDT)
[2024-06-02 06:06] VITALS: BP 150/117; PULSE 77; RESP 12; O2SAT 94
== END 2024-06-02 06:14 | disposition home or self-care (01) ==
LOC: ED 20:42
DX: R91.8 Other nonspecific abnormal finding of lung field (principal); R93.7 Abnormal findings on diagnostic imaging of other parts of musculoskeletal system; G81.94 Hemiplegia, unspecified affecting left nondominant side; G20.A1 Parkinson's disease without dyskinesia, without mention of fluctuations; M54.50 Low back pain, unspecified; R11.2 Nausea with vomiting, unspecified; R07.9 Chest pain, unspecified; I10 Essential (primary) hypertension; Z79.899 Other long term (current) drug therapy; Z72.0 Tobacco use
CPT/HCPCS: 0241U; 36000; 36415; 71250; 71260; 74176; 80053; 82150; 83605; 83690; 83880; 84484; 85025; 85379; 87651; 93005; 94760; 96374; 99285; 96375; J1170; J1200; J2270; J2405

== ENCOUNTER 2024-10-30 19:19 | Emergency (ER) | payer OTHER ==
[2024-10-30 19:39] VITALS: TEMP 98.5
--- NOTE | 2024-10-30 19:44 | ERPHSYRPT ---
- History of Present Illness Time Seen by Provider: 10/30/24 19:25 Historian: patient Exam Limitations: no limitations Physician History: Pt states he started with 6/10 mid anterior intermittent chest pain lasting up to 2 minutes per episode about 3 hours ago with shortness of air and LLQ abdominal pain. Pt also states he has had diarrhea for the past 2 weeks with last BM today. Pt also states he has had vomiting x2 without blood in the past 3 hours. Pt denies fever. Aspirin Treatment Today: 81 mg x 4, provided by ED Allergies/Adverse Reactions: No Known Drug Allergies Allergy (Verified 06/01/24 20:47) Home Medications: Diclofenac Sodium 75 mg PO BID 05/04/19 [History] Gabapentin 800 mg PO QID 05/04/19 [History] Albuterol 8 gm Mdi Hfa [Ventolin Hfa MDI] 90 mcg IH Q4-6HPRN PRN 10/21/19 [History] Tamsulosin HCl 0.4 mg [Flomax 0.4 MG] 0.4 mg PO QPM 10/21/19 [History] Albuterol 2.5 mg/3 ml Neb [Proventil 2.5 mg/3 ml Neb] 1 inh IH Q4H PRN PRN 05/21/21 [History] Atorvastatin Calcium 80 mg PO HS 05/21/21 [History] Budesonide/Formoterol Fumarate [Symbicort 160-4.5 Mcg Inhaler] 2 puffs IH BID 05/21/21 [History] Carvedilol 3.125 mg [Coreg 3.125 MG] 6.25 mg PO BID 05/21/21 [History] Cyclobenzaprine HCl 10 mg [Cyclobenzaprine 10 MG] 10 mg PO TID 05/21/21 [History] Ergocalciferol (Vitamin D2) [Vitamin D2] 1.25 mg PO WEEKLY 05/21/21 [History] Fluticasone Propionate [24 Hour Allergy Relief] 1 spray INTRANASAL HS 05/21/21 [History] Losartan Potassium 50 mg [Cozaar 50 MG] 50 mg PO DAILY 05/21/21 [History] Sertraline HCl 50 mg [Zoloft 50 mg Tablet] 200 mg PO DAILY 07/14/21 [History] Carbidopa/Levodopa [Carbidopa-Levo 25-100 mg Odt] 1 each PO BID 01/27/22 [History] Cyanocobalamin (Vitamin B-12) [Vitamin B-12] 500 mcg PO DAILY 01/27/22 [History] Bupropion HCl 150 mg Sr [Wellbutrin SR 150 MG] 150 mg PO BID 06/01/24 [History] Magnesium 400 mg PO DAILY 06/01/24 [History] Ondansetron [Ondansetron Odt] 4 mg PO Q8HPRN PRN 06/01/24 [History] Ranolazine 500 MG [Ranexa 500 MG] 500 mg PO BID 06/01/24 [History] diphenhydrAMINE HCL [Sleep Aid] 50 mg PO HS 06/01/24 [History] Hx Tetanus, Diphtheria Vaccination/Date Given: Yes Hx Influenza Vaccination/Date Given: Yes Hx Pneumococcal Vaccination/Date Given: No Travel Risk - Emerging Infectious Disease Are you exhibiting symptoms associated with any current EIDs: Yes Symptoms: Abdominal Pain, Vomitting - Review of Systems Constitutional: No Fever Respiratory: Dyspnea Cardiac: Chest Pain Abdominal/Gastrointestinal: Abdominal Pain, Vomiting, Diarrhea Neurological: No Headache - Past Medical History Pertinent Past Medical History: Yes Neurological History: Alzheimer's Disease ENT History: No Pertinent History Cardiac History: Myocardial Infarction (MD) Respiratory History: COPD Endocrine Medical History: No Pertinent History Musculoskeletal History: Degenerative Disk Disease GI Medical History: No Pertinent History, Gallbladder Disease History: No Pertinent History Psycho-Social History: Anxiety, Depression Male Reproductive Disorders: No Pertinent History Other Medical History: Parkinson's Disease, Alzheimer's Disease. PSH: 4 surgeries on right shoulder, carpal tunnel surgey, hernia repair, gallbladder removed, 3 surgies on back, spinal stimulator. prior fractures: Left arm fx, bilateral D1 fractures - Past Surgical History Past Surgical History: Yes Neuro Surgical History: No Pertinent History Cardiac: Cardiac Catheterization Respiratory: No Pertinent History Gastrointestinal: Cholecystectomy Genitourinary: No Pertinent History Musculoskeletal: Orthopedic Surgery Male Surgical History: No Pertinent History Other Surgical History: right shoulder surgeries. states "took half my collar bone out",rotator cuff right side ,carpal tunnel right wrist,section of right clavicle removed r/t being at age 29, surgery to back 04/2019 states "took out a piece of ruptured vertebrae". lumbar spine stimulator Significant Family History: no pertinent family hx - Social History Smoking Status: Current every day smoker How long have you smoked: 45 yrs Exposure to second hand smoke: Yes Alcohol Use: Socially Drug Use: marijuana Patient Lives Alone: No - Social Determinants of Health Will the patient participate in the screening: Yes Do you worry about a steady place to live?: No In the past 12 months,have you had to go without utilities?: No Transportation Issues: No Has anyone in your support network made you feel unsafe?: No Have you or anyone in your house had to go without enough: No - Nursing Vital Signs Nursing Vital Signs: Initial Vital Signs Pulse Rate 100 H 10/30/24 19:21 Respiratory Rate 17 10/30/24 19:21 Blood Pressure 131/76 10/30/24 19:21 O2 Sat by Pulse Oximetry 98 10/30/24 19:21 Pain Scale Pain Intensity 2 - Physical Exam General Appearance: alert, anxiety Eye Exam: PERRL/EOMI Ears, Nose, Throat Exam: TMs normal, pharynx normal Neck Exam: normal inspection Respiratory Exam: wheezing (mild expiratory wheezing over posterior bases) Cardiovascular Exam: No friction rub Gastrointestinal/Abdomen Exam: normal bowel sounds Back Exam: normal inspection Extremity Exam: No pedal edema Neurologic Exam: alert, cooperative Skin Exam: warm, dry - Course EKG Interpreted by Me: RATE (102), Sinus Tach, Left [place] Deviation, Other (QTc = 473) - CT Exams Chest CT Interpretation: Tele-radiologist Report (No evidence of PE. No acute intrathoracic abnormality.) Abdomen/Pelvis CT Interpretation: Tele-radiologist Report (No significant interval new finding is noted as compared to the previous CT scan(06/01/2024)) Ordered Tests: Active Orders 24 hr Category Date Time Status EKG-ER Only STAT Care 10/30/24 19:39 Active IV Insertion STAT Care 10/30/24 19:39 Active ABDOMEN AND PELVIS W CONTRAST [CT] Stat Exams 10/30/24 19:39 Completed CHEST WITH CONTRAST [CT] Stat Exams 10/30/24 19:41 Completed AMYLASE Stat Lab 10/30/24 20:10 Completed CBC W DIFF Stat Lab 10/30/24 20:10 Completed CMP Stat Lab 10/30/24 20:10 Completed LIPASE Stat Lab 10/30/24 20:10 Completed MAGNESIUM Stat Lab 10/30/24 20:10 Completed TROPONIN Q4H Lab 10/30/24 20:10 Completed TROPONIN Q4H Lab 10/30/24 23:45 Ordered TROPONIN Q4H Lab 10/31/24 03:45 Ordered UA W/RFX UR CULTURE Stat Lab 10/30/24 19:39 Ordered Urine Triage Profile Stat Lab 10/30/24 19:39 Ordered Respiratory Therapy Assessment DAILY RT 10/30/24 20:13 Active Medication Summary Discontinued Medications Generic Name Dose Route Start Last Admin Trade Name Freq PRN Reason Stop Dose Admin Albuterol Sulfate 2.5 mg 10/30/24 19:42 10/30/24 20:12 Albuterol Sulfate 2.5 Mg/3 Ml Neb IH 10/30/24 19:43 2.5 mg STAT ONE Administration Albuterol Sulfate Confirm 10/30/24 19:54 Albuterol Sulfate 2.5 Mg/3 Ml Neb Administered 10/30/24 19:55 Dose 2.5 mg IH .STK-MED ONE Aspirin 324 mg 10/31/24 00:34 Aspirin 81 Mg Tab.Chew PO 10/31/24 00:35 STAT ONE Nitroglycerin 0.4 mg 10/30/24 19:41 10/30/24 20:11 Nitroglycerin 0.4 Mg (Ed) 0.4 Mg Tab.Subl SL 10/30/24 19:42 0.4 mg STAT ONE Administration Nitroglycerin Confirm 10/30/24 20:00 Nitroglycerin 0.4 Mg (Ed) 0.4 Mg Tab.Subl Administered 10/30/24 20:01 Dose 0.4 mg SL .STK-MED ONE Ondansetron HCl 4 mg 10/30/24 19:39 10/30/24 20:12 Ondansetron Hcl 4 Mg/2 Ml Vial IV 10/30/24 19:40 4 mg STAT ONE Administration Ondansetron HCl Confirm 10/30/24 20:00 Ondansetron Hcl 4 Mg/2 Ml Vial Administered 10/30/24 20:01 Dose 4 mg .ROUTE .STK-MED ONE Lab/Rad Data: Laboratory Result Diagrams 10/30/24 20:10 10/30/24 20:10 Laboratory Results 10/30/24 10/30/24 10/30/24 Range/Units 20:10 20:10 20:10 WBC 12.0 H (4.23-9.07) x10^3/uL RBC 4.33 L (4.63-6.08) x10^6/uL Hgb 13.2 L (13.7-17.5) g/dL Hct 39.0 L (40.1-51.0) % MCV 90.1 (79.0-92.2) fL MCH 30.5 (25.7-32.2) pg MCHC 33.8 (32.3-36.5) g/dL RDW 14.4 (11.6-14.4) % Plt Count 429 H (163-337) x10^3/uL MPV 8.9 L (9.4-12.4) fL Gran % 57.0 (34.0-67.9) % Immature Gran % (Auto) 0.3 (0.001-0.429) % Nucleat RBC Rel Count 0.0 (0.00-0.2) % Eos # (Auto) 0.71 H (0.04-0.54) x10^3/uL Immature Gran # (Auto) 0.04 H (0.001-0.031) x10^3u/L Absolute Lymphs (auto) 3.51 (1.32-3.57) x10^3/uL Absolute Monos (auto) 0.86 H (0.30-0.82) x10^3/uL Absolute Nucleated RBC 0.00 (0.00-0.012) x10^3u/L Lymphocytes % 29.3 (21.8-53.1) % Monocytes % 7.2 (5.3-12.2) % Eosinophils % 5.9 (0.8-7.0) % Basophils % 0.3 (0.2-1.2) % Absolute Granulocytes 6.83 H (1.78-5.38) x10^3/uL Basophils # 0.04 (0.01-0.08) x10^3/uL Sodium 140 (135-145) mmol/L Potassium 4.0 (3.5-5.1) mmol/L Chloride 109 H (98-107) mmol/L Carbon Dioxide 25 (22-30) mmol/L Anion Gap 10.0 (5-15) MEQ/L BUN 23 H (9-20) mg/dL Creatinine 1.07 (0.66-1.25) mg/dL Estimated GFR 79.0 ML/MIN Glucose 103 (74-106) mg/dL Calcium 8.9 (8.4-10.2) mg/dL Magnesium 2.2 (1.6-2.3) mg/dL Total Bilirubin 0.30 (0.2-1.3) mg/dL AST 23 (17-59) U/L ALT 24 (0-50) U/L Alkaline Phosphatase 61 (38-126) U/L Troponin I < 0.012 (0.000-0.033) ng/mL Serum Total Protein 5.9 L (6.3-8.2) g/dL Albumin 3.6 (3.5-5.0) g/dL Amylase 75 (30-110) U/L Lipase 113 (23-300) U/L - Progress Progress: improved Progress Note: 10/31/24 00:36 Pt states he feels much better. Counseled pt/family regarding: lab results, diagnosis, need for follow-up, rad results Medical Desision Making - Diagnostic Testing Diagnostic test were ordered, analyzed, and reviewed by me: Yes Radiological Interpretation: Teleradiologist Report - Departure Departure Disposition: Home Clinical Impression: Chest pain, Abdominal pain, Diarrhea, Vomiting, Dyspnea Condition: Stable Critical Care Time: No Referrals: [facility] [Primary Care Provider] - Follow up/PCP as directed Instructions: Chest Pain (DC), Diarrhea, Adult ED, Nausea and Vomiting, Adult ED Additional Instructions: Follow up with private doctor today. Prescriptions: Ondansetron ODT 4 MG [Zofran Odt 4 mg] 4 mg PO Q6H PRN PRN #10 tablet PRN Reason: Nausea
[2024-10-30] MEDS ORDERED: PROVENTIL 2.5 MG/3 ML NEB IH ONE (19:54)
[2024-10-30] MEDS ORDERED: Nitrostat 0.4 MG (ED) SL ONE (20:00)
[2024-10-30] MEDS ORDERED: Zofran 4 MG/2 ML VIAL ONE (20:00)
[2024-10-30] MEDS: Nitrostat 0.4 MG (ED) SL ONE (20:11)
[2024-10-30] MEDS: PROVENTIL 2.5 MG/3 ML NEB IH ONE (20:12)
[2024-10-30] MEDS: Zofran 4 MG/2 ML VIAL IV ONE (20:12)
[2024-10-30 20:46] LABS: Absolute Neutrophil Ct (ANC) 6.83 x10^3/uL (1.78-5.38); BASOPHIL % 0.3 % (0.2-1.2); Basophil (Absolute #) 0.04 x10^3/uL (0.01-0.08); Eosinophil % 5.9 % (0.8-7.0); Eosinophil (Absolute #) 0.71 x10^3/uL (0.04-0.54); Hemoglobin 13.2 g/dL (13.7-17.5); IMMATURE GRAN # 0.04 x10^3u/L (0.001-0.031); IMMATURE GRAN % 0.3 % (0.001-0.429); Lymphocyte (Absolute #) 3.51 x10^3/uL (1.32-3.57); Lymphocytes % 29.3 % (21.8-53.1); Mean Cell Volume 90.1 fL (79.0-92.2); Mean Corpuscular Hemoglobin 30.5 pg (25.7-32.2); Mean Corpuscular Hgb Concent. 33.8 g/dL (32.3-36.5); Mean Platelet Volume 8.9 fL (9.4-12.4); Monocyte (Absolute #) 0.86 x10^3/uL (0.30-0.82); Monocytes % 7.2 % (5.3-12.2); Platelet Count 429 x10^3/uL (163-337); Red Blood Count 4.33 x10^6/uL (4.63-6.08); Red Cell Distribution Width 14.4 % (11.6-14.4)
[2024-10-30 21:02] LABS: ALBUMIN 3.6 g/dL (3.5-5.0); BILIRUBIN,TOTAL 0.3 mg/dL (0.2-1.3); Calcium 8.9 mg/dL (8.4-10.2); Creatinine 1 1.07 mg/dL (0.66-1.25); MAGNESIUM 2.2 mg/dL (1.6-2.3); Total Protein 5.9 g/dL (6.3-8.2)
--- NOTE | 2024-10-30 23:39 | XRAY ---
CLINICAL HISTORY: LLQ abdominal pain COMPARISON: 01 June 2024. TECHNIQUE: Multiple contiguous axial images were obtained from the level of diaphragm to the pubis symphysis. This study was acquired after the IV administration of iodinated contrast material, given the patient's indications for the examination. If IV contrast material had not been administered, the likelihood of detecting abnormalities relevant to the patient's condition would have been substantially decreased. Coronal and sagittal reformatted images were generated and reviewed to improve anatomic localization and optimize lesion detection. CT scan was performed according to ALARA (as low as reasonably achievable). FINDINGS: Subpleural subsegmental atelectasis is noted involving posterior basal segment of right lower lobe. Few calcified granulomas are noted in the left lower lobe. ABDOMEN/PELVIS: The liver is normal in size and attenuation. No focal liver lesions are seen. There is no intra or extrahepatic biliary ductal dilatation. Hepatic vasculature is patent. Gallbladder is not visualized, cholecystectomy status. Multiple calcified granulomas are noted within the spleen. The pancreas is unremarkable. Both adrenal glands are unremarkable. The kidneys are normal in size and attenuation. There is no hydronephrosis. No perinephric fat stranding is seen. No renal calculi or renal masses are identified. Stable Bosniak type I cyst is noted in the lower pole of left kidney. The ureters are normal in caliber and no ureteral calculi are seen. The bladder is normal in contour. No evidence of focal or diffuse bowel wall thickening or evidence of bowel obstruction is seen. Multiple sigmoid and few descending colonic diverticulae are noted. No adenopathy or fluid collections are seen. The aorta is normal in caliber. Atherosclerotic calcifications are noted involving aorta and its branches. No aggressive appearing osseous lesions are identified. Rest of the findings are unchanged compared to the previous CT scan. Degenerative changes are noted in the visualized spine in the form of marginal osteophytes, endplate irregularities and sclerosis, vacuum phenomenon, reduction in the disc heights at multiple levels. IMPRESSION: 1. Subpleural subsegmental atelectasis is noted involving posterior basal segment of right lower lobe. Few calcified granulomas are noted in the left lower lobe. 2. Multiple calcified granulomas are noted within the spleen. 3. Stable Bosniak type I cyst is noted in the lower pole of left kidney. 4. Uncomplicated sigmoid and descending colonic diverticulae, predominantly from sigmoid colon. No significant interval new finding is noted as compared to the previous CT scan. Electronically Signed by: Kg Jean MD. (10/30/2024 23:35:00 EST)
--- NOTE | 2024-10-30 23:55 | XRAY ---
CLINICAL HISTORY: chest pain/dyspnea COMPARISON: 06/02/2024 00:58:33 LINOTYPE MECH[employer]IC TECHNIQUE: Contiguous axial images were obtained from the neck base through the upper abdomen following intravenous administration of contrast material. If IV contrast material had not been administered, the likelihood of detecting abnormalities relevant to the patient's condition would have been substantially decreased. In addition, sagittal and coronal reconstructions were performed. CT scan was performed according to ALARA (as low as reasonably achievable). FINDINGS: No evidence of pulmonary embolism. Mild apical emphysema bilaterally. Bibasal atelectasis. Rest of the lungs are clear, with no focal areas of consolidation. Bilateral scattered pulmonary nodules the largest measuring 6.4 mm in maximum axial dimension and 5.2 mm in mean diameter seen in the lateral segment of the right lower lobe. Two calcified pulmonary nodules, larger measuring 7 mm in maximum axial dimension, are seen in the anteromedial of the left lower lobe. Bilateral scattered atelectatic bands. Bi-apical para septal emphysematous changes. The central airways are patent. There are no pleural effusions. No pneumothorax is seen. No axillary, hilar, or mediastinal adenopathy is identified. The visualized thyroid is unremarkable. The heart, aorta, and pulmonary arteries are of normal size and configuration. No pericardial effusion is identified. Imaged portions of the upper abdomen are unremarkable. No aggressive appearing osseous lesions are identified. IMPRESSION: 1.No evidence of pulmonary embolism. 2.The rest of the findings are unchanged with no acute intrathoracic abnormality. Electronically Signed by: Kg Jean MD. (10/30/2024 23:51:53 EST)
[2024-10-31] MEDS ORDERED: BABY ASPIRIN 81 MG CHEW ONE (00:48)
[2024-10-31] MEDS: BABY ASPIRIN 81 MG CHEW PO ONE (00:49)
[2024-10-31 01:15] VITALS: BP 141/90; PULSE 76; RESP 16; O2SAT 97
== END 2024-10-31 01:37 | disposition home or self-care (01) ==
LOC: ED 19:19
DX: R07.9 Chest pain, unspecified (principal); R10.32 Left lower quadrant pain; R11.10 Vomiting, unspecified; R19.7 Diarrhea, unspecified; R06.00 Dyspnea, unspecified; Z79.899 Other long term (current) drug therapy
CPT/HCPCS: 36415; 71260; 74177; 80053; 82150; 83690; 83735; 84484; 85025; 93005; 94640; 96374; 99284; 99285; J2405; J7609; A9270-GY